=== PATIENT | male | born 1950 | race African-American/Black ===

== ENCOUNTER 2018-08-15 19:09 | Inpatient (IN) | payer MEDICARE, OTHER ==
[2018-08-15 19:34] VITALS: BMI 32.5
--- NOTE | 2018-08-15 19:45 | PDOC ---
History of Present Illness - General Chief Complaint: Syncope/Near Syncope Stated Complaint: SICK Time Seen by Provider: 08/15/18 19:21 History Source: Patient Exam Limitations: Clinical Condition, Intoxication - History of Present Illness Initial Comments: 08/15/18 19:39 Patient is a 68 year old male with a PMHx of HTN, CAD on Aspirin, s/p defibrillator, Chronic Hepatits C, ?A.Fib and poor historian who was BIBEMS after being found on the floor. According to EMS, they found him on the sidewalk passed out with a bag full of unopened beer cans. When they arrived, patient was responsive immediately but unable to recall what happened. Upon my evaluation, patient was agitated and unwilling to answer questions. However, patient does report "passing out" but unable to recall what happened prior and unsure if he fell on his head. Patient currently denies any dizziness, chest pain, palpitation, shortness of breath, fever, chills, nausea, vomiting, abdominal pain, dysuria, frequency, headaches. PMHx: HTN CAD on Aspirin S/P defibrillator Chronic Hepatits C ?A.Fib PSHx: Defibrillator Social Hx: Denies drug use Denies smoking Drinks weekly Allergies: Denies 08/15/18 20:09 Past History - Past Medical History Allergies/Adverse Reactions: Allergies Allergy/AdvReac Type Severity Reaction Status Date / Time No Known Allergies Allergy Verified 08/15/18 19:33 Home Medications: Ambulatory Orders Unobtainable 08/15/18 - Suicide/Smoking/Psychosocial Hx Smoking History: Current some day smoker Have you smoked in the past 12 months: Yes Information on smoking cessation initiated: No Hx Alcohol Use: Yes Drug/Substance Use Hx: No Review of Systems - Review of Systems Constitutional: No: Chills, Diaphoresis, Fever HEENTM: No: Blurred Vision, Double Vision, Nose Congestion, Tinnitus, Nose Bleeding, Throat Pain, Difficulty Swallowing Respiratory: No: Cough, Orthopnea, Shortness of Breath, SOB with Exertion, SOB at Rest, Stridor, Wheezing, Productive cough, Hemoptysis Cardiac (ROS): Yes: Syncope. No: Chest Pain, Edema, Lightheadedness, Palpitations, Chest Tightness ABD/GI: No: Abdominal Distended, Constipated, Diarrhea, Nausea, Vomiting : No: Burning, Dysuria, Frequency, Hematuria Musculoskeletal: No: Back Pain, Joint Pain, Joint Swelling, Muscle Pain, Neck Pain Integumentary: No: Bruising, Erythema, Flushing Neurological: No: Headache, Numbness, Paresthesia, Seizure, Tingling, Tremors, Weakness, Unsteady Gait, Dizziness *Physical Exam - Vital Signs Last Vital Signs Temp Pulse Resp BP Pulse Ox 98.3 F 87 18 129/97 95 08/15/18 19:29 08/15/18 19:29 08/15/18 19:29 08/15/18 19:29 08/15/18 19:29 - Physical Exam General Appearance: Yes: Disheveled HEENT: positive: STEPHIE, Normal ENT Inspection, Normal Voice, Other ((+)2x2cm right forehead bump with no bruising or bleeding, (-) [place] eyes, (-) acuña's sign, (-) hemotympanum ). negative: Pharyngeal Erythema, Tonsillar Exudate, Tonsillar Erythema, Nasal Congestion, Sinus Tenderness Neck: positive: Other (Normal range of motion with no bruising. ) Respiratory/Chest: positive: Lungs Clear, Normal Breath Sounds. negative: Chest Tender, Respiratory Distress, Accessory Muscle Use, Crackles, Rhonchi, Wheezing, Hyperresonant, Dullness Cardiovascular: positive: Regular Rate, Edema (LE 1+ B/L), Irregularly Irregular Vascular Pulses: Dorsalis-Pedis (R): 2+, Doralis-Pedis (L): 2+ Gastrointestinal/Abdominal: positive: Other (Soft, nontender, nondistended, normoactive bowel sounds. (+) Umbilical hernia ) Lymphatic: negative: Adenopathy, Tenderness Musculoskeletal: positive: Normal Inspection. negative: CVA Tenderness, CVA Tenderness (R), CVA Tenderness (L), Decreased Range of Motion Extremity: positive: Normal Range of Motion, Pelvis Stable, Swelling (1+ pitting of LE b/l ), Other (left forearm fasciculations ). negative: Calf Tenderness, Erythema Integumentary: positive: Normal Color. 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, Alert, Motor Strength 5/5, Responsive, Other (NIHSS 2) Moderate Sedation - Procedure Monitoring Vital Signs: Procedure Monitoring Vital Signs Temperature 98.3 F 08/15/18 19:29 Pulse Rate 87 08/15/18 19:29 Respiratory Rate 18 08/15/18 19:29 Blood Pressure 129/97 08/15/18 19:29 O2 Sat by Pulse Oximetry (%) 95 08/15/18 19:29 Heart Score/ECG Review - History History: Highly suspicious - Electrocardiogram EKG: Normal - Age Age: >/= 65 - Risk Factors Risk Factors Heart Score: Yes Hx Hypertension Based on the list above the patient has:: >/=3 risk factors or Hx atherosclerotic disease - Troponin Troponin: >/=3x normal limit - Score Heart Score - Total: 8 - ECG Intrepretation Rhythm: Irregularly Irregular - ST and T Early Repolarization: No Non Specific ST-T Wave changes: No Prolonged Q-T Interval: Yes ED Treatment Course - LABORATORY CBC & Chemistry Diagram: 08/15/18 21:05 08/15/18 21:05 - RADIOLOGY Radiology Studies Ordered: Category Date Time Status HEAD CT WITHOUT CONTRAST [CT] Stat CT Scan 08/15/18 19:35 Ordered Medical Decision Making - Medical Decision Making 08/15/18 19:59 Patient is a 68 year old male who was found on the floor by EMS but was immediately responsive once EMS approached patient. He was found to have a bag unfilled beer cans and patient reports drinking this evening. Patient unable to recall what happened before the fall. Patient has significant history of CAD and will need to rule out etiology of fall which includes, but not limited to, cardiac etiology, neurological etiology , infectious etiology. -Head CT, CXR, and EKG ordered -CBC, CMP, Mg, phos, TSH ordered -U/A ordered -Alcohol levels ordered 08/15/18 21:46 -HEAD CT with no evidence of acute intracranial pathology, possible small chronic left parietal cortical infarct, moderate periventricular and subcortical chronic microvascular ischemic changes, -Patient is more alert now and is resting comfortably. Tolerated dinner -CBC revealed anemia with Hgb of 9.1 -CMP pending -CXR pending 08/15/18 22:13 -Patients BMP showed elevated BUN/Creatinine and troponins 1.50. Differential diagnosis may include PR vs elevated troponins secondary to Renal dysfunction ( demand ischemia) -Will give ASA loading dose -IV NS cancelled due to CXR revealing some cephalization -Will likely require admission -Will need to call Cardiology to determine if patient should be started on Heparin -Call made out 08/15/18 22:47 -Spoke to cardiology and patient likely has demand ischemia due to fall and alcohol intoxication with renal dysfunction. Loading dose ASA recommended. Patient will need to be placed on statin, BB, BALDO. Not a good candidate for AC according to filteration operator due to fall and possible alcoholism -Will need to admit for cardiac monitoring, repeat EKG and Trop to rule out ACS. Will likely need ICD interrogation. 08/15/18 23:26 -Patient accepted to [facility] *DC/Admit/Observation/Transfer Diagnosis at time of Disposition: Syncope Qualifiers: Syncope type: unspecified Qualified Code(s): R55 - Syncope and collapse - Discharge Dispostion Decision to Admit order: Yes - Referrals - Patient Instructions - Post Discharge Activity
--- NOTE | 2018-08-15 20:18 | PDOC ---
Attending Attestation - HPI HPI: 08/15/18 20:28 The patient is a 68 year old male, with a significant PMH of hypertension, coronary artery disease, chronic hepatitis C, atrial fibrillation, who presents to the emergency department via EMS for evaluation s/p being found on the floor/ sidewalk. EMS reports the patient was found on the sidewalk passed out with a full bag of unopened beer cans. They state the patient was responsive when they arrived but unable to explain why he was on the floor. The patient reports passing out but is unable to provide additional information. The patient denies chest pain, shortness of breath, headache and dizziness. Denies fever, chills, nausea, vomit, diarrhea and constipation. Denies dysuria, frequency, urgency and hematuria. Allergies: NKA Documentation prepared by Madhu Barkley, acting as biomedical engineering professor for Tyree Adam MD. - Physicial Exam PE: 08/15/18 20:29 CONSTITUTIONAL: (+) Disheveled. Awake and alert. HEAD: (+) 2x2 cm right forehead bump with no bruising or bleeding. NECK: Supple; non-tender; no cervical lymphadenopathy CARD: (+) Irregular irregular rhythm. no murmurs, rubs, or gallops RESP: Normal chest excursion with respiration; breath sounds clear and equal bilaterally; no wheezes, rhonchi, or rales ABD: (+) Umbilical hernia. Soft, non-distended; non-tender; no palpable organomegaly. EXT: (+) Bilateral 1+ pitting edema lower extremities. Normal ROM in all four extremities; non-tender to palpation; distal pulses intact SKIN: Warm, dry, no rash NEURO: No focal neurological deficiencies. <Madhu Barkley - Last Filed: 08/15/18 20:36> - Resident Resident Name: Belkis Buitrago - ED Attending Attestation I have performed the following: I have examined & evaluated the patient, The case was reviewed & discussed with the resident, I agree w/resident's findings & plan, Exceptions are as noted - Medical Decision Making 08/15/18 22:32 68-year-old male with history of alcohol abuse, htn, defibrilator, hep c, will admit. Presents to the ER after being found unresponsive. In the ER, patient is awake and alert, hemodynamically stable. EKG shows new onset atrial fibrillation without evidence of acute ischemia. Chest x-ray reveals cardiomegaly and possible left pleural effusion. CT of head shows nose of acute intracranial pathology. CBC reveals iron deficiency anemia. CMP reveals elevated BUN/creatinine as well as elevated troponin with a negative CPK. Differential diagnoses includes acute VT versus elevated troponins due to renal dysfunction versus cardiac dysrhythmia with elevated cardiac enzymesvs demand ischmia. We'll administer aspirin given the negative head CT. Will discuss with cardiology. will admit to telemertry <Tyree Adam - Last Filed: 08/15/18 22:57>
[2018-08-15 21:19] LABS: BASO % 1.2 % (0-2.0); EOS % 2.1 % (0-4.5); HEMATOCRIT 28.8 % (35.4-49); HEMOGLOBIN 9.1 GM/dL (11.7-16.9); LYMPH % 15.8 % (8-40); MCH 27.8 pg (25.7-33.7); MCHC 31.7 g/dl (32.0-35.9); MEAN CELL VOLUME 87.7 fl (80-96); MEAN PLT VOLUME 7.8 fl (7.5-11.1); MONO % 10.2 % (3.8-10.2); NEUT % 70.7 % (42.8-82.8); PLATELET COUNT 177 K/MM3 (134-434); RBC 3.28 M/mm3 (4.00-5.60); RDW 19.5 % (11.9-15.9); WHITE BLOOD COUNT 4.7 K/mm3 (4.0-10.0)
[2018-08-15 21:32] LABS: INR 1.12 (0.83-1.09); PROTHROMBIN TIME (PATIENT) 13.2 SEC (9.7-13.0)
[2018-08-15 22:06] LABS: ALBUMIN 3.9 g/dl (3.4-5.0); ALK PHOS 72 U/L (45-117); ANION GAP 10 MMOL/L (8-16); BILIRUBIN,TOTAL 0.4 mg/dL (0.2-1); BLOOD UREA NITROGEN 38 mg/dL (7-18); CALCIUM 8.9 mg/dL (8.5-10.1); CHLORIDE 111 mmol/L (98-107); CO2 19 mmol/L (21-32); CREATININE 1.6 mg/dL (0.55-1.3); GLUCOSE,RANDOM 72 mg/dL (74-106); MAGNESIUM 1.8 mg/dL (1.8-2.4); PHOSPHOROUS 3.8 mg/dL (2.5-4.9); POTASSIUM 4.2 mmol/L (3.5-5.1); SGOT/AST 40 U/L (15-37); SGPT/ALT 19 U/L (13-61); SODIUM 140 mmol/L (136-145); TOT PROT 8.7 g/dl (6.4-8.2)
[2018-08-15] MEDS ORDERED: SODIUM CHLORIDE 1,000 ML IV STA (22:09)
[2018-08-15] MEDS ORDERED: ASPIRIN 325 MG TABLET PO ONE (22:20)
[2018-08-15] MEDS ORDERED: ASPIRIN 81 MG CHEWABLE TABLETS ONE (23:30)
[2018-08-16] MEDS ORDERED: ATORVASTATIN CA 40 MG TABLET (FP) PO ONE (01:00)
[2018-08-16] MEDS ORDERED: FOLIC ACID INJECTION - 1 MG, THIAMINE HCL 100 MG, MULTIVIT INJECTION ADULT 10 ML in SOD... IVPB ONE (01:02)
[2018-08-16] MEDS ORDERED: chlordiazePOXIDE HCL 25 MG CAPSULE PO PRN (01:05)
--- NOTE | 2018-08-16 01:15 | HP ---
CHIEF COMPLAINT: syncope PCP: Dr. Leon Francisco HISTORY OF PRESENT ILLNESS: 68M w/ pmhx of HTN, CAD s/p defibrillator, chronic Hep C, ? A.fib, DM was BIBEMS due to a syncopal episode outside on the street. Pt states he was walking around [place] with no particular destination, during this time consumed 6 cans of beer when he suddenly fell. He does not recall the syncopal event, nor hitting his head during the fall. He states he does not usually experience syncopal episodes. He does, however, report b/l lower leg weakness that is exacerbated when is he intoxicated with alcohol. He states this weakness started 2-3 months ago. Pt says he does follow up with his PCP and foreman or supervisor and operator; last saw both physicians about 3-4 months ago. During those office visits, he reports that he did not have the b/l leg weakness then. Additionally, he admits to b/l LE decrease in sensation/numbness distal to his knee. He does not report any pain. Denies pearson/d, n/v, cp, sob, abd pain, urinary/ bowel symptoms, blood in urine/stool, c/d. He does admit to having a good appetite. Denies slurred speech. ER course was notable for: (1) BUN/Cr 38/1.6; glu 72, trop 1.5, EKG showed A. fib, HR 85 bpm (2) Head CT neg for acute IC pathology, possible small chronic L parietal cortical infarct; mod. periventricular and subcortical chronic microvascular ischemic changes. (3) Aspirin 325 mg PO (4) Cardio consulted regarding elevated trops, recommended starting BALDO, BB, statin; but deferred AC at this time due to pt high risk Recent Travel: Denies PAST MEDICAL HISTORY: HTN CAD s/p defibrillator chronic Hep C A. fib DM PAST SURGICAL HISTORY: defibrillator placement ([facility], 5 years ago) Social History: Smoking: Admits to smoking 1/2 PPD x10 years Alcohol: Admits to drinking ~6 cans of beer every other day Drugs: Denies Family History: Denies Allergies No Known Allergies Allergy (Verified 08/15/18 19:33) HOME MEDICATIONS: Home Medications Medication Instructions Recorded Unobtainable 08/15/18 REVIEW OF SYSTEMS As per HPI PHYSICAL EXAMINATION Vital Signs - 24 hr 08/15/18 19:29 Temperature 98.3 F Pulse Rate 87 Respiratory 18 Rate Blood Pressure 129/97 O2 Sat by Pulse 95 Oximetry (%) GENERAL: Awake and alert. NAD. Intoxicated. HEENT: AT/NC. EOMI. STEPHIE. Dry mucus membranes. 2x2 cm mass on upper right forehead, nontender, nondiscolored. NECK: Normal range of motion, supple without lymphadenopathy, JVD, or masses. LUNGS: CTA B/L. No wheezes noted. HEART: Irregularly irregular. No murmurs noted. ABDOMEN: Protruberant. Soft, NT/ND. No bruits/masses. +BS in all 4Qs. MUSCULOSKELETAL: UPPER EXTREMITIES: 2+ pulses, warm, well-perfused. No cyanosis. No clubbing. No peripheral edema. LOWER EXTREMITIES: 2+ pulses, warm, well-perfused. No calf tenderness. No peripheral edema. NEUROLOGICAL: Cranial nerves II-XII intact. Slurred speech. PSYCHIATRIC: Cooperative. Good eye contact. Appropriate mood and affect. SKIN: Warm, dry, normal turgor, no rashes or lesions noted, normal capillary refill. Laboratory Results - last 24 hr 08/15/18 08/15/18 08/15/18 21:05 21:05 21:05 WBC 4.7 RBC 3.28 L Hgb 9.1 L Hct 28.8 L MCV 87.7 MCH 27.8 MCHC 31.7 L RDW 19.5 H Plt Count 177 MPV 7.8 Absolute Neuts (auto) 3.3 Neutrophils % 70.7 Lymphocytes % 15.8 Monocytes % 10.2 Eosinophils % 2.1 Basophils % 1.2 Nucleated RBC % 0 PT with INR 13.20 H INR 1.12 H Sodium 140 Potassium 4.2 Chloride 111 H Carbon Dioxide 19 L Anion Gap 10 BUN 38 H Creatinine 1.6 H Creat Clearance w eGFR 42.95 Random Glucose 72 L Calcium 8.9 Phosphorus 3.8 Magnesium 1.8 Total Bilirubin 0.4 AST 40 H ALT 19 Alkaline Phosphatase 72 Creatine Kinase 142 Troponin I 1.50 H* Total Protein 8.7 H Albumin 3.9 Alcohol, Quantitative 178.4 H CONSULT: Cardio- Dr. German IMAGING: * Head CT: neg for acute IC pathology. Possible small chronic L parietal cortical infarct. Moderate periventricular and subcortical microvascular ischemic changes. ASSESSMENT/PLAN: 68M w/ pmhx of HTN, CAD s/p defibrillator, chronic Hep C, ? A.fib, DM was BIBEMS due to a syncopal episode likely 2/2 alcohol intoxication. #Syncope; likely 2/2 alcohol intoxication vs. cardiac etiology vs. neuro etiology -Unlikely neuro given head CT findings showing chronic changes, no acute IC pathology -EKG showed A. fib; syncopal episode may be due to cardiac etiology -Echo ordered -Carotid doppler ordered -Fall precautions #Elevated troponins; likely 2/2 demand ischemia in setting of alcoholic intoxication, acute renal injury -ED resident spoke to cardio. Per cardio rec, defer AC for now as pt has a fall risk -cardio consult ordered; admit to tele to r/o ACS -Aspirin 81 mg PO QD -Lipitor 40 mg PO QD -Metoprolol 25 mg PO BID -Lisinopril 20 mg PO QD -repeat trops #CKD -BUN/Cr 38/1.6; continue to trend BMP #DM -BGMs ACHS -ISS ACHS -hold home med Metformin #Alcohol Intoxication -Librium protocol -Banana bag -Alcohol cessation counseling #Prophylaxis DVT- Heparin 5000U SQ TID #FEN -banana bag ordered -recheck lytes in AM -diabetic/sodium-controlled diet dispo -admit to tele obs -full code -needs meds reconciled Visit type - Emergency Visit Emergency Visit: Yes ED Registration Date: 08/15/18 Care time: The patient presented to the Emergency Department on the above date and was hospitalized for further evaluation of their emergent condition. - New Patient This patient is new to me today: Yes Date on this admission: 08/16/18 - Critical Care Critical Care patient: No
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
[2018-08-16] MEDS ORDERED: ATORVASTATIN CA 40 MG TABLET (FP) ONE (01:24)
[2018-08-16] MEDS ORDERED: METOPROLOL TARTRATE 25 MG TABLET (FP) ONE ×2 (01:25→23:54)
[2018-08-16] MEDS: METOPROLOL TARTRATE 25 MG TABLET (FP) PO SCH ×3 (01:35→23:58)
[2018-08-16] MEDS ORDERED: chlordiazePOXIDE HCL 25 MG CAPSULE ONE ×3 (07:19→16:26)
[2018-08-16] MEDS: chlordiazePOXIDE HCL 25 MG CAPSULE PO SCH ×3 (07:20→16:37)
[2018-08-16] MEDS ORDERED: ASPIRIN 81 MG CHEWABLE TABLETS PO SCH (10:00)
[2018-08-16] MEDS ORDERED: LISINOPRIL 20 MG TABLET (FP) PO SCH (10:00)
--- NOTE | 2018-08-16 10:35 | HOSP ---
Subjective - Review of Symptoms Events since last encounter: Patient is feeling better ,but wants to go home. Vital Signs Temperature 99.4 F 08/16/18 07:22 Pulse Rate 83 08/16/18 08:33 Respiratory Rate 16 08/16/18 08:33 Blood Pressure 151/95 08/16/18 08:33 O2 Sat by Pulse Oximetry (%) 97 08/16/18 08:56 GENERAL: Awake and alert. NAD. calm. HEENT: AT/NC. EOMI. STEPHIE. Dry mucus membranes. NECK: Normal range of motion, supple without lymphadenopathy, JVD, or masses. LUNGS: CTA B/L. No wheezes noted. HEART: Irregularly irregular. No murmurs noted. ABDOMEN: Soft, NT/ND. No bruits/masses. EXTREMITIES: 2+ pulses, warm, well-perfused. No cyanosis. No clubbing. No peripheral edema. NEUROLOGICAL: Cranial nerves II-XII intact. PSYCHIATRIC: Cooperative. Appropriate mood and affect. SKIN: Warm, dry, normal turgor, no rashes or lesions noted, normal capillary refill. CBCD WBC 4.7 K/mm3 (4.0-10.0) 08/15/18 21:05 RBC 3.28 M/mm3 (4.00-5.60) L 08/15/18 21:05 Hgb 9.1 GM/dL (11.7-16.9) L 08/15/18 21:05 Hct 28.8 % (35.4-49) L 08/15/18 21:05 MCV 87.7 fl (80-96) 08/15/18 21:05 MCHC 31.7 g/dl (32.0-35.9) L 08/15/18 21:05 RDW 19.5 % (11.9-15.9) H 08/15/18 21:05 Plt Count 177 K/MM3 (134-434) 08/15/18 21:05 MPV 7.8 fl (7.5-11.1) 08/15/18 21:05 CMP Sodium 140 mmol/L (136-145) 08/15/18 21:05 Potassium 4.2 mmol/L (3.5-5.1) 08/15/18 21:05 Chloride 111 mmol/L (98-107) H 08/15/18 21:05 Carbon Dioxide 19 mmol/L (21-32) L 08/15/18 21:05 Anion Gap 10 MMOL/L (8-16) 08/15/18 21:05 BUN 38 mg/dL (7-18) H 08/15/18 21:05 Creatinine 1.6 mg/dL (0.55-1.3) H 08/15/18 21:05 Creat Clearance w eGFR 42.95 (>60) 08/15/18 21:05 Random Glucose 72 mg/dL (74-106) L 08/15/18 21:05 Calcium 8.9 mg/dL (8.5-10.1) 08/15/18 21:05 Total Bilirubin 0.4 mg/dL (0.2-1) 08/15/18 21:05 AST 40 U/L (15-37) H 08/15/18 21:05 ALT 19 U/L (13-61) 08/15/18 21:05 Alkaline Phosphatase 72 U/L (45-117) 08/15/18 21:05 Total Protein 8.7 g/dl (6.4-8.2) H 08/15/18 21:05 Albumin 3.9 g/dl (3.4-5.0) 08/15/18 21:05 CARDIAC ENZYMES Creatine Kinase 142 IU/L (26-308) 08/15/18 21:05 Troponin I 1.49 ng/ml (0.00-0.05) H* 08/16/18 08:40 Current Medications Generic Name Dose Route Start Last Admin Trade Name Freq PRN Reason Stop Dose Admin Aspirin 81 mg 08/16/18 10:00 08/16/18 09:49 Asa - PO 81 mg DAILY ALEAH Administration Chlordiazepoxide HCl 50 mg 08/16/18 05:00 08/16/18 07:20 Librium - PO 08/16/18 23:01 50 mg [id number] ALEAH Administration Chlordiazepoxide HCl 25 mg 08/17/18 05:00 Librium - PO 08/17/18 23:01 [id number]-[id number] ALEAH Chlordiazepoxide HCl 15 mg 08/18/18 05:00 Librium - PO 08/18/18 23:01 [id number] ALEAH Chlordiazepoxide HCl 25 mg 08/16/18 01:05 Librium - PO 08/19/18 01:04 Q4H PRN WITHDRAWAL(CONT SUBST) Chlordiazepoxide HCl 10 mg 08/19/18 05:00 Librium - PO 08/19/18 23:01 [id number] ALEAH Heparin Sodium (Porcine) 5,000 unit 08/16/18 14:00 Heparin - SQ TID [facility] Insulin Aspart 1 vial 08/16/18 11:00 Novolog Vial Sliding Scale - SQ ACHS [facility] Protocol Lisinopril 20 mg 08/16/18 10:00 08/16/18 09:49 Prinivil PO 20 mg DAILY ALEAH Administration Metoprolol Tartrate 25 mg 08/16/18 01:15 08/16/18 09:50 Lopressor - PO 25 mg BID ALEAH Administration Home Medications Medication Instructions Recorded Unobtainable 08/15/[address]: neg for acute IC pathology. Possible small chronic L parietal cortical infarct. Moderate periventricular and subcortical microvascular ischemic changes. ASSESSMENT/PLAN: Patient is a 68yo male with pmhx of HTN, CAD s/p defibrillator, chronic Hep C, A.fib, DM was admitted for a syncopal episode most likely due to alcohol intoxication. #Syncope: most likely due to alcohol #Alcohol Intoxication: on Librium protocol, monitor for withdrawel #Elevated troponins; likely demand ischemia in setting of alcoholic intoxication. Cardio. on the case appreciated. #acute renal injury over CKD: IVF #T2DM: ss with coverage. # DVT Px: Heparin 5000U SQ TID follow head CT for am. Laboratory Tests 08/15/18 08/16/18 08/16/18 21:05 08:40 13:20 Troponin I 1.50 H* 1.49 H* 1.40 H* Physical Examination Vital Signs: Vital Signs Temperature 99.4 F 08/16/18 07:22 Pulse Rate 83 08/16/18 08:33 Respiratory Rate 16 08/16/18 08:33 Blood Pressure 151/95 08/16/18 08:33 O2 Sat by Pulse Oximetry (%) 97 08/16/18 08:56 Labs: CBC, BMP 08/15/18 21:05 08/15/18 21:05
[2018-08-16 10:49] LABS: URINE APPEARANCE CLEAR; URINE BILIRUBIN NEGATIVE (<2.0 mg/dL); URINE COLOR YELLOW; URINE GLUCOSE (UA) NEGATIVE (NEGATIVE); URINE KETONE NEGATIVE (NEGATIVE); URINE LEUK ESTERASE NEGATIVE (NEGATIVE); URINE NITRITE NEGATIVE (NEGATIVE); URINE PROTEIN 1+ (NEGATIVE)
[2018-08-16 11:01] LABS: EPI CELLS RARE /HPF (FEW); URINE HYALINE CAST 9 /lpf; URINE MUCUS RARE
[2018-08-16] MEDS: INSULIN SLIDING SCALE (NOVOLOG) 1 VIAL SQ SCH ×3 (11:23→23:59)
--- NOTE | 2018-08-16 13:45 | CON.CARD ---
Consult Consult Specialty:: Cardiomyopathy Referred by:: Hospitalist Medicine Reason for Consultation:: Syncope - History of Present Illness Chief Complaint: Syncope History of Present Illness: cc: syncope PCP: Dr. Leon Francisco HISTORY OF PRESENT ILLNESS: 68M w/ pmhx of HTN, CAD s/p ischemic cardiomyopathy s/p defibrillator, chronic Hep C, ? A.fib, DM was BIBEMS due to a syncopal episode after consuming 6 cans of beer, found to have elevated serum alcohol, now asymptomatic from CV- standpoint and denies chest pain, dyspnea, near or true syncope, palpitations, orthopnea, PND or LE edema, ICD d/c, eating dinner, he sees supervisor dials at Dr. Leon Francisco office. Recent Travel: Denies PAST MEDICAL HISTORY: HTN CAD s/p defibrillator chronic Hep C A. fib DM PAST SURGICAL HISTORY: defibrillator placement ([facility], 5 years ago) Social History: Smoking: Admits to smoking 1/2 PPD x10 years Alcohol: Admits to drinking ~6 cans of beer every other day Drugs: Denies Family History: Denies Allergies No Known Allergies Allergy (Verified 08/15/18 19:33) - Alcohol/Substance Use Hx Alcohol Use: Yes - Smoking History Smoking history: Current some day smoker Have you smoked in the past 12 months: Yes Home Medications - Allergies Allergies/Adverse Reactions: Allergies Allergy/AdvReac Type Severity Reaction Status Date / Time No Known Allergies Allergy Verified 08/15/18 19:33 - Home Medications Home Medications: Ambulatory Orders Unobtainable 08/15/18 Review of Systems - Review of Systems Neurological: reports: Syncope Vital Signs: Vital Signs Temperature 98.4 F 08/16/18 11:24 Pulse Rate 85 08/16/18 11:24 Respiratory Rate 18 08/16/18 11:24 Blood Pressure 122/86 08/16/18 11:24 O2 Sat by Pulse Oximetry (%) 97 08/16/18 11:24 Constitutional: Yes: No Distress, Calm Neck: Yes: Supple Respiratory: Yes: Regular, CTA Bilaterally Gastrointestinal: Yes: Normal Bowel Sounds, Soft Cardiovascular: Yes: Pulse Irregular JVD: No Carotid Bruit: No Heart Sounds: Yes: S1, S2 Murmur: Yes: Systolic Murmur, Grade 1 Edema: No - Other Data Labs, Other Data: CBC, BMP 08/15/18 21:05 08/15/18 21:05 INR, PTT INR 1.12 (0.83-1.09) H 08/15/18 21:05 Troponin, BNP 08/15/18 08/16/18 21:05 08:40 Troponin I 1.50 H* 1.49 H* Troponin, BNP 08/15/18 08/16/18 21:05 08:40 Troponin I 1.50 H* 1.49 H* Afib @ 84 PVC Ejection Fraction %: LVEF < 40 % Imaging - Results Chest X-ray: Report Reviewed (NAD) Ultrasound: Report Reviewed (Carotid US-Neg stenosis) Problem List - Problems (1) Cardiomyopathy Code(s): I42.9 - CARDIOMYOPATHY, UNSPECIFIED Qualifiers: Cardiomyopathy type: unspecified Qualified Code(s): I42.9 - Cardiomyopathy , unspecified (2) ICD (implantable cardioverter-defibrillator) in place Code(s): Z95.810 - PRESENCE OF AUTOMATIC (IMPLANTABLE) CARDIAC DEFIBRILLATOR (3) Demand ischemia Code(s): I24.8 - OTHER FORMS OF ACUTE ISCHEMIC HEART DISEASE (4) Alcohol intoxication Code(s): F10.929 - ALCOHOL USE, UNSPECIFIED WITH INTOXICATION, UNSPECIFIED Qualifiers: Complication of substance-induced condition: uncomplicated Qualified Code(s ): F10.920 - Alcohol use, unspecified with intoxication, uncomplicated (5) Chronic kidney disease Code(s): N18.9 - CHRONIC KIDNEY DISEASE, UNSPECIFIED Qualifiers: Chronic kidney disease stage: stage 2 (mild) Qualified Code(s): N18.2 - Chronic kidney disease, stage 2 (mild) (6) Syncope Code(s): R55 - SYNCOPE AND COLLAPSE Qualifiers: Syncope type: unspecified Qualified Code(s): R55 - Syncope and collapse Assessment/Plan Head CT neg for acute IC pathology, possible small chronic L parietal cortical infarct; mod. periventricular and subcortical chronic microvascular ischemic changes. 1. Syncope in context of alcohol intoxication 2. CAD demand ischemia 3. Persistent afib not a/c candidate due to active alcohol, outside supervisor dials to reassess 4. Type 2 DM 5. CKD 6. Anemia P:1. Resume patient's usual cardiomyopathy meds likely including BALDO-I, BB, statin, ASA; a/c deferred due to active alcohol 2. Trops are downtrending 3. Librium detox, vitamins 4. Patient has no alarms on telemetry over last 24 hours, december d/c telemetry monitoring 5. Thank you for consultative opportunity, f/u with outside supervisor dials at Dr. Leon Francisco office
[2018-08-16] MEDS: HEPARIN NA (PORCINE) 5,000 UNITS/ML 1ML VIAL SQ SCH ×2 (14:37→23:58)
--- NOTE | 2018-08-16 15:48 | EKG ---
Test Reason : Blood Pressure : / mmHG Vent. Rate : 084 BPM Atrial Rate : 125 BPM P-R Int : 000 ms QRS Dur : 104 ms QT Int : 420 ms P-R-T Axes : 000 013 066 degrees QTc Int : 496 ms ATRIAL FIBRILLATION WITH PREMATURE VENTRICULAR OR ABERRANTLY CONDUCTED COMPLEXES SEPTAL INFARCT , AGE UNDETERMINED ABNORMAL ECG NO PREVIOUS ECGS AVAILABLE Confirmed by CHICA RUELAS MD ([id number]) on 08/16/2018 3:47:28 PM Referred By: Confirmed By:CHICA RUELAS MD
[2018-08-16] MEDS ORDERED: HEPARIN NA (PORCINE) 5,000 UNITS/ML 1ML VIAL ONE (23:54)
[2018-08-17] MEDS ORDERED: chlordiazePOXIDE HCL 25 MG CAPSULE ONE (00:06)
[2018-08-17] MEDS: chlordiazePOXIDE HCL 25 MG CAPSULE PO SCH ×4 (00:11→22:11)
[2018-08-17] MEDS ORDERED: chlordiazePOXIDE HCL 25 MG CAPSULE PO SCH (05:00)
[2018-08-17] MEDS: HEPARIN NA (PORCINE) 5,000 UNITS/ML 1ML VIAL SQ SCH ×3 (05:14→22:11)
[2018-08-17] MEDS: INSULIN SLIDING SCALE (NOVOLOG) 1 VIAL SQ SCH ×4 (06:07→22:11)
[2018-08-17] MEDS ORDERED: chlordiazePOXIDE HCL 25 MG CAPSULE PO PRN (07:43)
--- NOTE | 2018-08-17 07:58 | PN ---
Physical Exam: SUBJECTIVE: Patient seen and examined. Drowsy but arousable Pt came is as a syncope likely due to alcohol intoxication ruled out for cardiac or neuro causes of syncope now on librium protocol. OBJECTIVE: Vital Signs Period Temp Pulse Resp BP Sys/Ott Pulse Ox Last 24 Hr 97.8 F-98.4 F 75-85 16-18 120-156/75-95 96-98 Vital Signs Temperature 97.5 F L 08/17/18 09:51 Pulse Rate 98 H 08/17/18 09:51 Respiratory Rate 20 08/17/18 09:51 Blood Pressure 146/106 H 08/17/18 09:51 O2 Sat by Pulse Oximetry (%) 98 08/17/18 09:52 GENERAL: The patient is drowsy but arousable, and oriented, in no acute distress. HEAD: Normal with no signs of trauma. EYES: PERRL, extraocular movements intact, sclera anicteric, conjunctiva clear. ENT: moist mucous membranes. NECK: supple. LUNGS: Breath sounds equal, clear to auscultation bilaterally HEART: Regular rate and rhythm, S1, S2 without murmur ABDOMEN: Soft, nontender, obese, normoactive bowel sounds EXTREMITIES: 2+ pulses, warm, well-perfused, no edema. NEUROLOGICAL: Mild tremors, Symetric face and tongue, intact sensations, able to move all extremities, Normal speech, gait not observed. CBC, BMP 08/17/18 06:30 08/17/18 06:30 Laboratory Results - last 24 hr 08/16/18 08/16/18 08/16/18 08:15 08:40 11:08 POC Glucometer 134.08496 Creatine Kinase Troponin I 1.49 H* Urine Color Yellow Urine Appearance Clear Urine pH 5.0 Ur Specific [place] 1.017 Urine Protein 1+ H Urine Glucose (UA) Negative Urine Ketones Negative Urine Blood Negative Urine Nitrite Negative Urine Bilirubin Negative Urine Urobilinogen 2.0 Ur Leukocyte Esterase Negative Urine WBC (Auto) 2 Urine RBC (Auto) 1 Ur Epithelial Cells Rare Hyaline Casts 9 Urine Mucus Rare 08/16/18 08/16/18 08/16/18 13:20 16:29 23:49 POC Glucometer 123.59774 128.59065 Creatine Kinase 137 Troponin I 1.40 H* Urine Color Urine Appearance Urine pH Ur Specific [place] Urine Protein Urine Glucose (UA) Urine Ketones Urine Blood Urine Nitrite Urine Bilirubin Urine Urobilinogen Ur Leukocyte Esterase Urine WBC (Auto) Urine RBC (Auto) Ur Epithelial Cells Hyaline Casts Urine Mucus 08/17/18 05:13 POC Glucometer 122 Creatine Kinase Troponin I Urine Color Urine Appearance Urine pH Ur Specific [place] Urine Protein Urine Glucose (UA) Urine Ketones Urine Blood Urine Nitrite Urine Bilirubin Urine Urobilinogen Ur Leukocyte Esterase Urine WBC (Auto) Urine RBC (Auto) Ur Epithelial Cells Hyaline Casts Urine Mucus Active Medications Generic Name Dose Route Start Last Admin Trade Name Freq PRN Reason Stop Dose Admin Aspirin 81 mg 08/17/18 10:00 Asa - PO DAILY [facility] Chlordiazepoxide HCl 25 mg 08/17/18 07:43 Librium - PO 08/19/18 01:04 Q4H PRN WITHDRAWAL(CONT SUBST) Chlordiazepoxide HCl 25 mg 08/17/18 11:00 Librium - PO 08/17/18 23:01 [id number] [facility] Chlordiazepoxide HCl 15 mg 08/18/18 05:00 Librium - PO 08/18/18 23:01 [id number] [facility] Chlordiazepoxide HCl 10 mg 08/19/18 05:00 Librium - PO 08/19/18 23:01 [id number] [facility] Heparin Sodium (Porcine) 5,000 unit 08/17/18 14:00 Heparin - SQ TID [facility] Insulin Aspart 1 vial 08/17/18 11:00 Novolog Vial Sliding Scale - SQ ACHS [facility] Protocol Lisinopril 20 mg 08/17/18 10:00 Prinivil PO DAILY [facility] Metoprolol Tartrate 25 mg 08/17/18 10:00 Lopressor - PO BID [facility] Active Medications Aspirin (Asa -) 81 mg PO DAILY [facility] Last Admin: 08/17/18 09:49 Dose: 81 mg Chlordiazepoxide HCl (Librium -) 25 mg PO Q4H PRN PRN Reason: WITHDRAWAL(CONT SUBST) Stop: 08/19/18 01:04 Chlordiazepoxide HCl (Librium -) 25 mg PO [id number] [facility] Stop: 08/17/18 23:01 Chlordiazepoxide HCl (Librium -) 15 mg PO [id number] [facility] Stop: 08/18/18 23:01 Chlordiazepoxide HCl (Librium -) 10 mg PO [id number] [facility] Stop: 08/19/18 23:01 Folic Acid (Folic Acid -) 1 mg PO DAILY [facility] Heparin Sodium (Porcine) (Heparin -) 5,000 unit SQ TID [facility] Sodium Chloride (1/2 Normal Saline) 1,000 mls @ 42 mls/hr IV ASDIR [facility] Stop: 08/18/18 10:49 Insulin Aspart (Novolog Vial Sliding Scale -) 1 vial SQ [facility]; Protocol Lisinopril (Prinivil) 20 mg PO DAILY [facility] Last Admin: 08/17/18 09:49 Dose: 20 mg Metoprolol Tartrate (Lopressor -) 25 mg PO BID [facility] Last Admin: 08/17/18 09:49 Dose: 25 mg Thiamine HCl (Vitamin B1 -) 100 mg PO DAILY [facility] IMAGING: * Head CT: neg for acute IC pathology. Possible small chronic L parietal cortical infarct. Moderate periventricular and subcortical microvascular ischemic changes. * ASSESSMENT/PLAN: 68M w/ pmhx of HTN, CAD s/p defibrillator, chronic Hep C, A.fib, DM was BIBEMS due to a syncopal episode likely 2/2 alcohol intoxication. #Syncope; likely 2/2 alcohol intoxication - head CT findings showing chronic changes, no acute IC pathology -EKG showed A. fib; pt not on A/C due to frequent falls and ETOH abuse -Echo ordered -Carotid doppler ordered -Fall precautions #Alcohol withdrawal -Librium protocol - Detox consult -thiamine, folic acid #Elevated troponins; likely 2/2 demand ischemia in setting of alcoholic intoxication, acute renal injury -Peaked trops, Per cardio rec, defer AC for now as pt has a fall risk -Transfer off tele -Aspirin 81 mg PO QD -Lipitor 40 mg PO QD -Metoprolol 25 mg PO BID -Lisinopril 20 mg PO QD #Persistent Afib: -Per cardio rec, defer AC for now as pt has a fall risk -Cont metoprolol -f/u with outside metal ceiling hanger at Dr. Leon Francisco office #NAS R/O CKD -BUN/Cr 38/1.6 on presentation -Cr trending down 1.6>>1.5 #T2DM -BGMs ACHS -ISS ACHS -HgbA1c- -hold home med Metformin #Alcohol Intoxication -Librium protocol -Alcohol cessation counseling -Detox consult #Anemia -Normocytic anemia, Elevated RDW, -Cont to monitor -F/u Iron studies #HTN -Cont librium protocol - Cont lisinopril, metoprolol #FEN -Sodium controlled diet -Monitor lytes replete as needed #Dispo For likely transfer to [facility] Visit type - Emergency Visit Emergency Visit: Yes ED Registration Date: 08/16/18 Care time: The patient presented to the Emergency Department on the above date and was hospitalized for further evaluation of their emergent condition. - New Patient This patient is new to me today: Yes Date on this admission: 08/17/18 - Critical Care Critical Care patient: No - Discharge Referral Referred to [facility] Med P.C.: No
--- NOTE | 2018-08-17 08:04 | PN ---
Teaching Attending Note Name of Resident: Bella rGaff ATTENDING PHYSICIAN STATEMENT I saw and evaluated the patient. I reviewed the resident's note and discussed the case with the resident. I agree with the resident's findings and plan as documented. SUBJECTIVE: Patient feels better with no acute distress. would like to go home. OBJECTIVE: Vital Signs Temperature 97.8 F 08/17/18 06:00 Pulse Rate 77 08/17/18 06:00 Respiratory Rate 18 08/17/18 06:00 Blood Pressure 120/79 08/17/18 06:00 O2 Sat by Pulse Oximetry (%) 96 08/17/18 01:30 GENERAL: Awake and alert. NAD. HEENT: AT/NC. EOMI. STEPHIE. Dry mucus membranes. NECK: Normal range of motion, supple without lymphadenopathy, JVD, or masses. LUNGS: CTA B/L. No wheezes noted. HEART: Irregularly irregular. No murmurs noted. ABDOMEN: Soft, NT/ND. No bruits/masses. EXTREMITIES: 2+ pulses, warm, well-perfused. No cyanosis. No clubbing. No peripheral edema. NEUROLOGICAL: Cranial nerves II-XII intact. PSYCHIATRIC: Cooperative. Good eye contact. Appropriate mood and affect. SKIN: Warm, dry, normal turgor, no rashes or lesions noted, normal capillary refill. CBCD WBC 4.7 K/mm3 (4.0-10.0) 08/15/18 21:05 RBC 3.28 M/mm3 (4.00-5.60) L 08/15/18 21:05 Hgb 9.1 GM/dL (11.7-16.9) L 08/15/18 21:05 Hct 28.8 % (35.4-49) L 08/15/18 21:05 MCV 87.7 fl (80-96) 08/15/18 21:05 MCHC 31.7 g/dl (32.0-35.9) L 08/15/18 21:05 RDW 19.5 % (11.9-15.9) H 08/15/18 21:05 Plt Count 177 K/MM3 (134-434) 08/15/18 21:05 MPV 7.8 fl (7.5-11.1) 08/15/18 21:05 CMP Sodium 140 mmol/L (136-145) 12/21/18 21:05 Potassium 4.2 mmol/L (3.5-5.1) 08/15/18 21:05 Chloride 111 mmol/L (98-107) H 08/15/18 21:05 Carbon Dioxide 19 mmol/L (21-32) L 08/15/18 21:05 Anion Gap 10 MMOL/L (8-16) 08/15/18 21:05 BUN 38 mg/dL (7-18) H 08/15/18 21:05 Creatinine 1.6 mg/dL (0.55-1.3) H 08/15/18 21:05 Creat Clearance w eGFR 42.95 (>60) 08/15/18 21:05 Random Glucose 72 mg/dL (74-106) L 08/15/18 21:05 Calcium 8.9 mg/dL (8.5-10.1) 08/15/18 21:05 Total Bilirubin 0.4 mg/dL (0.2-1) 08/15/18 21:05 AST 40 U/L (15-37) H 08/15/18 21:05 ALT 19 U/L (13-61) 08/15/18 21:05 Alkaline Phosphatase 72 U/L (45-117) 08/15/18 21:05 Total Protein 8.7 g/dl (6.4-8.2) H 08/15/18 21:05 Albumin 3.9 g/dl (3.4-5.0) 08/15/18 21:05 CARDIAC ENZYMES Creatine Kinase 137 IU/L (26-308) 08/16/18 13:20 Troponin I 1.40 ng/ml (0.00-0.05) H* 08/16/18 13:20 Current Medications Generic Name Dose Route Start Last Admin Trade Name Freq PRN Reason Stop Dose Admin Aspirin 81 mg 08/17/18 10:00 Asa - PO DAILY ALEAH Chlordiazepoxide HCl 25 mg 08/17/18 07:43 Librium - PO 08/19/18 01:04 Q4H PRN WITHDRAWAL(CONT SUBST) Chlordiazepoxide HCl 25 mg 08/17/18 11:00 Librium - PO 08/17/18 23:01 [id number] ALEAH Chlordiazepoxide HCl 15 mg 08/18/18 05:00 Librium - PO 08/18/18 23:01 [id number] ALEAH Chlordiazepoxide HCl 10 mg 08/19/18 05:00 Librium - PO 08/19/18 23:01 [id number] [facility] Heparin Sodium (Porcine) 5,000 unit 08/17/18 14:00 Heparin - SQ TID ALEAH Insulin Aspart 1 vial 08/17/18 11:00 Novolog Vial Sliding Scale - SQ ACHS [facility] Protocol Lisinopril 20 mg 08/17/18 10:00 Prinivil PO DAILY ALEAH Metoprolol Tartrate 25 mg 08/17/18 10:00 Lopressor - PO BID [facility] Home Medications Medication Instructions Recorded Unobtainable 08/15/[address]: neg for acute IC pathology. Possible small chronic L parietal cortical infarct. Moderate periventricular and subcortical microvascular ischemic changes. repeat head CT is negative for an acute pathology. ASSESSMENT/PLAN: Patient is a 68yo male with pmhx of HTN, CAD s/p defibrillator, chronic Hep C, A.fib, DM was admitted for a syncopal episode most likely due to alcohol intoxication as per patient before the syncopal event had alcohol in his system. #Syncope: due to alcohol intoxication #Alcohol Intoxication: on Librium protocol continue on 25mg q6h x 1 day today, monitor for withdrawel, will; get PT to evalaute the patient for gait and balance. #Elevated troponins; likely demand ischemia in setting of alcoholic intoxication. cardio. on the case. #acute renal injury over CKD: IVF continue #T2DM: ss with coverage. # DVT Px: Heparin 5000U SQ TID
[2018-08-17 08:05] LABS: BASO % 1.2 % (0-2.0); EOS % 4.1 % (0-4.5); HEMATOCRIT 25.9 % (35.4-49); HEMOGLOBIN 8.6 GM/dL (11.7-16.9); LYMPH % 16.9 % (8-40); MCH 28.8 pg (25.7-33.7); MCHC 33.1 g/dl (32.0-35.9); MEAN CELL VOLUME 87.1 fl (80-96); MEAN PLT VOLUME 8.7 fl (7.5-11.1); MONO % 13.1 % (3.8-10.2); NEUT % 64.7 % (42.8-82.8); PLATELET COUNT 146 K/MM3 (134-434); RBC 2.98 M/mm3 (4.00-5.60); RDW 18.4 % (11.9-15.9); WHITE BLOOD COUNT 4.3 K/mm3 (4.0-10.0)
[2018-08-17 08:50] LABS: ALBUMIN 3.2 g/dl (3.4-5.0); ALK PHOS 62 U/L (45-117); ANION GAP 7 MMOL/L (8-16); BILIRUBIN,TOTAL 0.6 mg/dL (0.2-1); BLOOD UREA NITROGEN 38 mg/dL (7-18); CALCIUM 8.7 mg/dL (8.5-10.1); CHLORIDE 114 mmol/L (98-107); CO2 21 mmol/L (21-32); CREATININE 1.5 mg/dL (0.55-1.3); GLUCOSE,RANDOM 105 mg/dL (74-106); POTASSIUM 4.2 mmol/L (3.5-5.1); SGOT/AST 28 U/L (15-37); SGPT/ALT 16 U/L (13-61); SODIUM 141 mmol/L (136-145); TOT PROT 7.4 g/dl (6.4-8.2)
[2018-08-17] MEDS: ASPIRIN 81 MG CHEWABLE TABLETS PO SCH (09:49)
[2018-08-17] MEDS: LISINOPRIL 20 MG TABLET (FP) PO SCH (09:49)
[2018-08-17] MEDS: METOPROLOL TARTRATE 25 MG TABLET (FP) PO SCH ×2 (09:49→22:11)
[2018-08-17] MEDS ORDERED: SODIUM CHLORIDE 0.45% 1,000 ML IV SCH (11:00)
[2018-08-17] MEDS: THIAMINE HCL 100 MG TABLET (FP) PO SCH (11:45)
[2018-08-17] MEDS: FOLIC ACID 1 MG TABLET (FP) PO SCH (11:45)
--- NOTE | 2018-08-17 14:08 | PN ---
Progress Note, Physician History of Present Illness: Resting comfortably, no event on telemetry, denies recurrent near or true syncope. - Current Medication List Current Medications: Active Medications Aspirin (Asa -) 81 mg PO DAILY [facility] Last Admin: 08/17/18 09:49 Dose: 81 mg Chlordiazepoxide HCl (Librium -) 25 mg PO Q4H PRN PRN Reason: WITHDRAWAL(CONT SUBST) Stop: 08/19/18 01:04 Chlordiazepoxide HCl (Librium -) 25 mg PO [id number] [facility] Stop: 08/17/18 23:01 Last Admin: 08/17/18 11:45 Dose: 25 mg Chlordiazepoxide HCl (Librium -) 15 mg PO [id number] [facility] Stop: 08/18/18 23:01 Chlordiazepoxide HCl (Librium -) 10 mg PO [id number] [facility] Stop: 08/19/18 23:01 Folic Acid (Folic Acid -) 1 mg PO DAILY [facility] Last Admin: 08/17/18 11:45 Dose: 1 mg Heparin Sodium (Porcine) (Heparin -) 5,000 unit SQ TID [facility] Sodium Chloride (1/2 Normal Saline) 1,000 mls @ 42 mls/hr IV ASDIR [facility] Stop: 08/18/18 10:49 Last Admin: 08/17/18 11:45 Dose: 42 mls/hr Insulin Aspart (Novolog Vial Sliding Scale -) 1 vial SQ [facility]; Protocol Last Admin: 08/17/18 11:44 Dose: Not Given Lisinopril (Prinivil) 20 mg PO DAILY [facility] Last Admin: 08/17/18 09:49 Dose: 20 mg Metoprolol Tartrate (Lopressor -) 25 mg PO BID [facility] Last Admin: 08/17/18 09:49 Dose: 25 mg Thiamine HCl (Vitamin B1 -) 100 mg PO DAILY [facility] Last Admin: 08/17/18 11:45 Dose: 100 mg - Objective Vital Signs: Vital Signs Temperature 97.5 F L 08/17/18 09:51 Pulse Rate 98 H 08/17/18 09:51 Respiratory Rate 20 08/17/18 09:51 Blood Pressure 146/106 H 08/17/18 09:51 O2 Sat by Pulse Oximetry (%) 98 08/17/18 09:52 Constitutional: Yes: No Distress, Calm Neck: Yes: Supple Cardiovascular: Yes: Pulse Irregular Respiratory: Yes: Regular, CTA Bilaterally Gastrointestinal: Yes: Normal Bowel Sounds, Soft Edema: No Labs: CBC, BMP 08/17/18 06:30 08/17/18 06:30 INR, PTT INR 1.12 (0.83-1.09) H 08/15/18 21:05 - ....Imaging EKG: Report Reviewed (Tele: Rate-controlled afib) Problem List - Problems (1) Cardiomyopathy Code(s): I42.9 - CARDIOMYOPATHY, UNSPECIFIED Qualifiers: Cardiomyopathy type: unspecified Qualified Code(s): I42.9 - Cardiomyopathy , unspecified (2) ICD (implantable cardioverter-defibrillator) in place Code(s): Z95.810 - PRESENCE OF AUTOMATIC (IMPLANTABLE) CARDIAC DEFIBRILLATOR (3) Demand ischemia Code(s): I24.8 - OTHER FORMS OF ACUTE ISCHEMIC HEART DISEASE (4) Alcohol intoxication Code(s): F10.929 - ALCOHOL USE, UNSPECIFIED WITH INTOXICATION, UNSPECIFIED Qualifiers: Complication of substance-induced condition: uncomplicated Qualified Code(s ): F10.920 - Alcohol use, unspecified with intoxication, uncomplicated (5) Chronic kidney disease Code(s): N18.9 - CHRONIC KIDNEY DISEASE, UNSPECIFIED Qualifiers: Chronic kidney disease stage: stage 2 (mild) Qualified Code(s): N18.2 - Chronic kidney disease, stage 2 (mild) (6) Syncope Code(s): R55 - SYNCOPE AND COLLAPSE Qualifiers: Syncope type: unspecified Qualified Code(s): R55 - Syncope and collapse Assessment/Plan Head CT neg for acute IC pathology, possible small chronic L parietal cortical infarct; mod. periventricular and subcortical chronic microvascular ischemic changes. 1. Syncope in context of alcohol intoxication 2. CAD demand ischemia 3. Persistent afib not a/c candidate due to active alcohol, outside gas station supervisor to reassess 4. Type 2 DM 5. CKD 6. Anemia P:1. Resume patient's usual cardiomyopathy meds likely including BALDO-I, BB, statin, ASA; a/c deferred due to active alcohol 2. Trops are downtrending 3. Librium detox, vitamins, PT for gait training 4. Patient has no alarms on telemetry over last 48 hours 5. F/u with outside gas station supervisor at Dr. Leon Francisco office
[2018-08-18] MEDS ORDERED: chlordiazePOXIDE 5 MG CAPSULE PO SCH (05:00)
[2018-08-18] MEDS: chlordiazePOXIDE 5 MG CAPSULE PO SCH ×2 (05:09→11:37)
[2018-08-18] MEDS: HEPARIN NA (PORCINE) 5,000 UNITS/ML 1ML VIAL SQ SCH ×2 (05:10→14:27)
[2018-08-18] MEDS: INSULIN SLIDING SCALE (NOVOLOG) 1 VIAL SQ SCH ×2 (06:24→11:43)
[2018-08-18 06:50] LABS: BASO % 0.9 % (0-2.0); EOS % 2.3 % (0-4.5); HEMATOCRIT 27.7 % (35.4-49); HEMOGLOBIN 8.3 GM/dL (11.7-16.9); MCHC 30.1 g/dl (32.0-35.9); MEAN CELL VOLUME 89.6 fl (80-96); MEAN PLT VOLUME 8.3 fl (7.5-11.1); NEUT % 45.8 % (42.8-82.8); PLATELET COUNT 132 K/MM3 (134-434); RBC 3.09 M/mm3 (4.00-5.60); RDW 18.5 % (11.9-15.9); WHITE BLOOD COUNT 4.3 K/mm3 (4.0-10.0)
[2018-08-18 08:02] LABS: ALBUMIN 3.2 g/dl (3.4-5.0); ALK PHOS 71 U/L (45-117); ANION GAP 6 MMOL/L (8-16); BILIRUBIN,TOTAL 0.6 mg/dL (0.2-1); BLOOD UREA NITROGEN 39 mg/dL (7-18); CALCIUM 8.4 mg/dL (8.5-10.1); CHLORIDE 112 mmol/L (98-107); CO2 21 mmol/L (21-32); CREATININE 1.6 mg/dL (0.55-1.3); GLUCOSE,RANDOM 103 mg/dL (74-106); MAGNESIUM 1.6 mg/dL (1.8-2.4); PHOSPHOROUS 3.8 mg/dL (2.5-4.9); POTASSIUM 4.9 mmol/L (3.5-5.1); SGOT/AST 43 U/L (15-37); SGPT/ALT 16 U/L (13-61); SODIUM 139 mmol/L (136-145); TOT PROT 7.5 g/dl (6.4-8.2)
[2018-08-18] MEDS: METOPROLOL TARTRATE 25 MG TABLET (FP) PO SCH (09:24)
[2018-08-18] MEDS: THIAMINE HCL 100 MG TABLET (FP) PO SCH (09:24)
[2018-08-18] MEDS: ASPIRIN 81 MG CHEWABLE TABLETS PO SCH (09:24)
[2018-08-18] MEDS: FOLIC ACID 1 MG TABLET (FP) PO SCH (09:24)
[2018-08-18] MEDS: LISINOPRIL 20 MG TABLET (FP) PO SCH (09:24)
--- NOTE | 2018-08-18 12:43 | ECHO ---
Name: NITHIN AYALA Exam:Adult Echocardiogram Study Date: 08/18/2018 07:29 AM Age: 68 yrs Reason For Study: SYNCOPE Height: 72 in Weight: 240 lb BSA: 2.3 m2 MMode/2D Measurements & Calculations RVDd: 3.8 cm Ao root diam: 3.7 cm IVSd: 1.00 cm LA dimension: 5.2 cm LVIDd: 6.3 cm ACS: 1.5 cm LVIDs: 5.2 cm LVPWd: 1.2 cm IVSs: 1.2 cm LVPWs: 1.4 cm EDV(Teich): 202.9 ml ESV(Teich): 128.1 ml Doppler Measurements & Calculations MV E max irasema: 78.4 cm/sec Ao V2 max: 127.3 cm/sec MV A max irasema: 32.9 cm/sec Ao max P.7 mmHg MV E/A: 2.4 Ao V2 mean: 93.5 cm/sec Ao mean P.9 mmHg Ao V2 VTI: 20.5 cm MR max irasema: 507.8 cm/sec TR max irasema: 321.6 cm/sec MR max P.6 mmHg TR max P.7 mmHg PI end-d irasema: 224.3 cm/sec Procedure The study was technically good with many images being of high quality. Left Ventricle The left ventricle is severely dilated. Ejection Fraction = 30%. There is severe global hypokinesis o f the left ventricle. Right Ventricle There is a pacemaker lead in the right ventricle. The right ventricular systolic function is mildly r educed. Atria The left atrium is severely dilated. The right atrium is severely dilated. Mitral Valve The mitral valve is normal. There is mild mitral regurgitation. Tricuspid Valve The tricuspid valve is not well visualized, but is grossly normal. There is severe tricuspid regurgit ation. Right ventricular systolic pressure is elevated at 61 mmhg. There is severe pulmonary hypertension. Aortic Valve There is moderate aortic sclerosis.;. The aortic valve is trileaflet. Pulmonic Valve The pulmonic valve is not well seen, but is grossly normal. Great Vessels The aortic root is normal size. Pericardium/Pleura There is no pericardial effusion. Interpretation Summary There is severe global hypokinesis of the left ventricle. The left ventricle is severely dilated. The right ventricular systolic function is mildly reduced. There is severe tricuspid regurgitation. There is severe pulmonary hypertension. Fermin Blum 08/18/2018 12:43 PM
--- NOTE | 2018-08-18 13:52 | PN ---
Teaching Attending Note Name of Resident: Joaquina Donohue ATTENDING PHYSICIAN STATEMENT I saw and evaluated the patient. I reviewed the resident's note and discussed the case with the resident. I agree with the resident's findings and plan as documented. SUBJECTIVE: Patient is better but was able to walk only 5 feet. OBJECTIVE: Vital Signs Temperature 97.9 F 08/18/18 09:28 Pulse Rate 84 08/18/18 09:28 Respiratory Rate 18 08/18/18 09:28 Blood Pressure 120/85 08/18/18 09:28 O2 Sat by Pulse Oximetry (%) 98 08/17/18 19:57 GENERAL: Awake and alert. NAD. HEENT: AT/NC. EOMI. STEPHIE. Dry mucus membranes. NECK: Normal range of motion, supple without lymphadenopathy, JVD, or masses. LUNGS: CTA B/L. No wheezes noted. HEART: Irregularly irregular. No murmurs noted. ABDOMEN: Soft, NT/ND. No bruits/masses. EXTREMITIES: 2+ pulses, warm, well-perfused. No cyanosis. No clubbing. No peripheral edema. NEUROLOGICAL: Cranial nerves II-XII intact. PSYCHIATRIC: Cooperative. Good eye contact. Appropriate mood and affect. SKIN: Warm, dry, normal turgor, no rashes or lesions noted, normal capillary refill. CBCD WBC 4.3 K/mm3 (4.0-10.0) 08/18/18 06:00 RBC 3.09 M/mm3 (4.00-5.60) L 08/18/18 06:00 Hgb 8.3 GM/dL (11.7-16.9) L 08/18/18 06:00 Hct 27.7 % (35.4-49) L 08/18/18 06:00 MCV 89.6 fl (80-96) 08/18/18 06:00 MCHC 30.1 g/dl (32.0-35.9) L 08/18/18 06:00 RDW 18.5 % (11.9-15.9) H 08/18/18 06:00 Plt Count 132 K/MM3 (134-434) L 08/18/18 06:00 MPV 8.3 fl (7.5-11.1) 08/18/18 06:00 CMP Sodium 139 mmol/L (136-145) 12/24/18 06:00 Potassium 4.9 mmol/L (3.5-5.1) 08/18/18 06:00 Chloride 112 mmol/L (98-107) H 08/18/18 06:00 Carbon Dioxide 21 mmol/L (21-32) 08/18/18 06:00 Anion Gap 6 MMOL/L (8-16) L 08/18/18 06:00 BUN 39 mg/dL (7-18) H 08/18/18 06:00 Creatinine 1.6 mg/dL (0.55-1.3) H 08/18/18 06:00 Creat Clearance w eGFR 42.95 (>60) 08/18/18 06:00 Random Glucose 103 mg/dL (74-106) 08/18/18 06:00 Calcium 8.4 mg/dL (8.5-10.1) L 08/18/18 06:00 Total Bilirubin 0.6 mg/dL (0.2-1) 08/18/18 06:00 AST 43 U/L (15-37) H 08/18/18 06:00 ALT 16 U/L (13-61) 08/18/18 06:00 Alkaline Phosphatase 71 U/L (45-117) 08/18/18 06:00 Total Protein 7.5 g/dl (6.4-8.2) 08/18/18 06:00 Albumin 3.2 g/dl (3.4-5.0) L 08/18/18 06:00 CARDIAC ENZYMES Creatine Kinase 137 IU/L (26-308) 08/16/18 13:20 Troponin I 1.40 ng/ml (0.00-0.05) H* 08/16/18 13:20 Current Medications Generic Name Dose Route Start Last Admin Trade Name Freq PRN Reason Stop Dose Admin Aspirin 81 mg 08/17/18 10:00 08/18/18 09:24 Asa - PO 81 mg DAILY ALEAH Administration Chlordiazepoxide HCl 25 mg 08/17/18 07:43 Librium - PO 08/19/18 01:04 Q4H PRN WITHDRAWAL(CONT SUBST) Chlordiazepoxide HCl 15 mg 08/18/18 05:00 08/18/18 11:37 Librium - PO 08/18/18 23:01 15 mg [id number] ALEAH Administration Chlordiazepoxide HCl 10 mg 08/19/18 05:00 Librium - PO 08/19/18 23:01 [id number] ALEAH Folic Acid 1 mg 08/17/18 10:45 08/18/18 09:24 Folic Acid - PO 1 mg DAILY ALEAH Administration Heparin Sodium (Porcine) 5,000 unit 08/17/18 14:00 08/18/18 05:10 Heparin - SQ 5,000 unit TID ALEAH Administration Insulin Aspart 1 vial 08/17/18 11:00 08/18/18 11:43 Novolog Vial Sliding Scale - SQ Not Given ACHS ALEAH Protocol Lisinopril 20 mg 08/17/18 10:00 08/18/18 09:24 Prinivil PO 20 mg DAILY ALEAH Administration Metoprolol Tartrate 25 mg 08/17/18 10:00 08/18/18 09:24 Lopressor - PO 25 mg BID ALEAH Administration Thiamine HCl 100 mg 08/17/18 10:45 08/18/18 09:24 Vitamin B1 - PO 100 mg DAILY ALEAH Administration Home Medications Medication Instructions Recorded Unobtainable 08/15/[address]: neg for acute IC pathology. Possible small chronic L parietal cortical infarct. Moderate periventricular and subcortical microvascular ischemic changes. repeat head CT is negative for an acute pathology. ASSESSMENT/PLAN: Patient is a 68yo male with pmhx of HTN, CAD s/p defibrillator, chronic Hep C, A.fib, DM was admitted for a syncopal episode most likely due to alcohol intoxication as per patient before the syncopal event had alcohol in his system. #Syncope: due to alcohol intoxication, no withdrawel symptoms #Alcohol Intoxication: on Librium protocol continue on 25mg q6h x 1 day today, will monitor for withdrawel, PT to evalaute the patient for gait and balance. #Elevated troponins; likely demand ischemia in setting of alcoholic intoxication. cardio. on the case. #acute renal injury over CKD: IVF continue #T2DM: ss with coverage. # DVT Px: Heparin 5000U SQ TID SNF if possible.
--- NOTE | 2018-08-18 15:17 | DS ---
Physical Exam: SUBJECTIVE: Patient seen and examined at bedside No acute events overnight. OBJECTIVE: Vital Signs Period Temp Pulse Resp BP Sys/Ott Pulse Ox Last 24 Hr 97.7 F-97.9 F 78-89 18-18 120-142/85-97 95-98 PHYSICAL EXAM GENERAL: The patient is drowsy but arousable, and oriented, in no acute distress. HEAD: Normal with no signs of trauma. EYES: PERRL, extraocular movements intact, sclera anicteric, conjunctiva clear. ENT: moist mucous membranes. NECK: supple. LUNGS: Breath sounds equal, clear to auscultation bilaterally HEART: Regular rate and rhythm, S1, S2 without murmur ABDOMEN: Soft, nontender, obese, normoactive bowel sounds EXTREMITIES: 2+ pulses, warm, well-perfused, no edema. NEUROLOGICAL: Mild tremors, Symetric face and tongue, intact sensations, able to move all extremities, Normal speech, gait not observed. LABS Laboratory Results - last 24 hr 08/17/18 08/17/18 08/18/18 16:29 22:10 05:08 WBC RBC Hgb Hct MCV MCH MCHC RDW Plt Count MPV Absolute Neuts (auto) Neutrophils % Lymphocytes % Monocytes % Eosinophils % Basophils % Nucleated RBC % Sodium Potassium Chloride Carbon Dioxide Anion Gap BUN Creatinine Creat Clearance w eGFR POC Glucometer 112 117 138 Random Glucose Calcium Phosphorus Magnesium Ferritin Total Bilirubin AST ALT Alkaline Phosphatase Total Protein Albumin 08/18/18 08/18/18 08/18/18 06:00 06:00 11:42 WBC 4.3 RBC 3.09 L Hgb 8.3 L Hct 27.7 L MCV 89.6 MCH 27.0 MCHC 30.1 L RDW 18.5 H Plt Count 132 L MPV 8.3 Absolute Neuts (auto) 2.0 Neutrophils % 45.8 D Lymphocytes % 42.0 H D Monocytes % 9.0 Eosinophils % 2.3 Basophils % 0.9 Nucleated RBC % 0 Sodium 139 Potassium 4.9 Chloride 112 H Carbon Dioxide 21 Anion Gap 6 L BUN 39 H Creatinine 1.6 H Creat Clearance w eGFR 42.95 POC Glucometer 109 Random Glucose 103 Calcium 8.4 L Phosphorus 3.8 Magnesium 1.6 L Ferritin 35.9 Total Bilirubin 0.6 AST 43 H ALT 16 Alkaline Phosphatase 71 Total Protein 7.5 Albumin 3.2 L HOSPITAL COURSE: Date of Admission:08/16/18 IMAGING: * Head CT: neg for acute IC pathology. Possible small chronic L parietal cortical infarct. Moderate periventricular and subcortical microvascular ischemic changes. * CXR (08/15/18): Since 11/18/14, large heart, folded aorta, and pacemaker. There is increased fullness of the jose francisco. There may be some blunting of the L angle. R lung is clear. * Carotid doppler (08/16/18): Essentially neg study. * Head CT (08/16/18): No acute bleed or fx. No CT evidence of acute infarct. 68M w/ pmhx of HTN, CAD s/p defibrillator, chronic Hep C, A.fib, DM was BIBEMS due to a syncopal episode 2/2 alcohol intoxication. Labs showed elevated troponins and as a result, cardio was consulted. Pt admitted to tele to r/o ACS and was found to have persistent a fib. Upon cardio eval, pt was placed on Lisinopril, Metoprolol, statin, aspirin, but AC was deferred due to pt's hx of fall and and active alcohol abuse. Additionally, pt was placed on Librium for alcohol detox. Over hospital course, pt's symptoms improved and was discharged to [facility] to continue Librium detox. He was given instructions to follow up with his manager in home and primary care physician. Date of Discharge: 08/18/18 Minutes to complete discharge: 40 Discharge Summary Reason For Visit: SICK Current Active Problems Chronic kidney disease (Chronic) ICD (implantable cardioverter-defibrillator) in place (Chronic) Condition: Improved - Instructions Diet, Activity, Other Instructions: You were seen in the hospital after a fainting episode. During your stay, a head CT was done that did not show any acute condition. Lab work showed abnormally high cardiac enzymes, and as a result, you were assessed by cardiology. You were not found to have an acute cardiac condition as the cause of your fainting episode. Additionally, you were started on Librium for alcohol detox. Your fainting episode was likely due to alcohol intoxication. It is important that you stop drinking alcohol in order to prevent future fainting episodes and other potentially fatal complications. You are being discharged to [facility] for continuation of alcohol detox as well as for rehab. MEDICAL RECOMMENDATIONS Please continue taking the following medications: You have been started on a Librium taper. You have 2 doses of Librium 15 mg left for today. Your next dose will be at 5: 30pm. Then take another dose at 11:30pm. When you have completed the above dose, please take Librium 10 mg starting tomorrow, 06/18/18, once every 6 hours. IT IS STRONGLY RECOMMENDED THAT YOU STOP DRINKING ALCOHOL. Please take Lisinopril 20 mg once a day by mouth. Please take Aspirin 81 mg once a day by mouth. Please take Lopressor 25 mg twice a day by mouth. Please take Folic Acid 1 mg once a day by mouth. Please take Thiamine HCl 100 mg once a day by mouth. CONSULT RECOMMENDATIONS Please follow up with your primary care physician, Dr. Francisco, within 1 week. Please follow up with your manager in home, Dr. German, within 1 week. If you experience another fainting episode, worsening chest pain or shortness of breath, difficulty walking, seizures, altered mental status, or other neurological symptoms, please proceed to your nearest emergency room immediately. Referrals: Leon Francisco MD [Primary Care Provider] - 1 Week Neeraj German MD [Staff Physician] - 1 Week Disposition: TRANSFER ACUTE CARE/OTHER HOSP - Home Medications Comprehensive Discharge Medication List: Ambulatory Orders Aspirin [ASA -] 81 mg PO DAILY tab.chew 08/18/18 Chlordiazepoxide [Librium -] 10 mg PO [id number] #8 capsule MDD 40 08/18/18 Chlordiazepoxide [Librium -] 15 mg PO [id number] #6 capsule MDD 60 08/18/18 Folic Acid - 1 mg PO DAILY tablet 08/18/18 Lisinopril [Prinivil] 20 mg PO DAILY tablet 08/18/18 Metoprolol Tartrate [Lopressor -] 25 mg PO BID tablet 08/18/18 Thiamine HCl [Vitamin B1 -] 100 mg PO DAILY tablet 08/18/18 This patient is new to me today: No Emergency Visit: Yes ED Registration Date: 08/16/18 Care time: The patient presented to the Emergency Department on the above date and was hospitalized for further evaluation of their emergent condition. Critical Care patient: No - Discharge Referral Referred to [facility] No
--- NOTE | 2018-08-18 16:00 | PN ---
Progress Note, Physician History of Present Illness: Resting comfortably, no event on telemetry, denies recurrent near or true syncope. - Current Medication List Current Medications: Active Medications Aspirin (Asa -) 81 mg PO DAILY [facility] Last Admin: 08/18/18 09:24 Dose: 81 mg Chlordiazepoxide HCl (Librium -) 25 mg PO Q4H PRN PRN Reason: WITHDRAWAL(CONT SUBST) Stop: 08/19/18 01:04 Chlordiazepoxide HCl (Librium -) 15 mg PO [id number] [facility] Stop: 08/18/18 23:01 Last Admin: 08/18/18 11:37 Dose: 15 mg Chlordiazepoxide HCl (Librium -) 10 mg PO [id number] [facility] Stop: 08/19/18 23:01 Folic Acid (Folic Acid -) 1 mg PO DAILY [facility] Last Admin: 08/18/18 09:24 Dose: 1 mg Heparin Sodium (Porcine) (Heparin -) 5,000 unit SQ TID [facility] Last Admin: 08/18/18 14:27 Dose: 5,000 unit Insulin Aspart (Novolog Vial Sliding Scale -) 1 vial SQ ACHS [facility]; Protocol Last Admin: 08/18/18 11:43 Dose: Not Given Lisinopril (Prinivil) 20 mg PO DAILY [facility] Last Admin: 08/18/18 09:24 Dose: 20 mg Metoprolol Tartrate (Lopressor -) 25 mg PO BID [facility] Last Admin: 08/18/18 09:24 Dose: 25 mg Thiamine HCl (Vitamin B1 -) 100 mg PO DAILY [facility] Last Admin: 08/18/18 09:24 Dose: 100 mg - Objective Vital Signs: Vital Signs Temperature 97.9 F 08/18/18 09:28 Pulse Rate 84 08/18/18 09:28 Respiratory Rate 18 08/18/18 09:28 Blood Pressure 120/85 08/18/18 09:28 O2 Sat by Pulse Oximetry (%) 95 08/18/18 09:00 Constitutional: Yes: No Distress, Calm Neck: Yes: Supple Cardiovascular: Yes: Pulse Irregular, Murmur (2/6 SM) Respiratory: Yes: Regular, Diminished Gastrointestinal: Yes: Normal Bowel Sounds, Soft Edema: No Labs: CBC, BMP 08/18/18 06:00 08/18/18 06:00 INR, PTT INR 1.12 (0.83-1.09) H 08/15/18 21:05 - ....Imaging EKG: Report Reviewed (Tele: Afib occ PVC) Problem List - Problems (1) Cardiomyopathy Code(s): I42.9 - CARDIOMYOPATHY, UNSPECIFIED Qualifiers: Cardiomyopathy type: unspecified Qualified Code(s): I42.9 - Cardiomyopathy , unspecified (2) ICD (implantable cardioverter-defibrillator) in place Code(s): Z95.810 - PRESENCE OF AUTOMATIC (IMPLANTABLE) CARDIAC DEFIBRILLATOR (3) Demand ischemia Code(s): I24.8 - OTHER FORMS OF ACUTE ISCHEMIC HEART DISEASE (4) Alcohol intoxication Code(s): F10.929 - ALCOHOL USE, UNSPECIFIED WITH INTOXICATION, UNSPECIFIED Qualifiers: Complication of substance-induced condition: uncomplicated Qualified Code(s ): F10.920 - Alcohol use, unspecified with intoxication, uncomplicated (5) Chronic kidney disease Code(s): N18.9 - CHRONIC KIDNEY DISEASE, UNSPECIFIED Qualifiers: Chronic kidney disease stage: stage 2 (mild) Qualified Code(s): N18.2 - Chronic kidney disease, stage 2 (mild) (6) Syncope Code(s): R55 - SYNCOPE AND COLLAPSE Qualifiers: Syncope type: unspecified Qualified Code(s): R55 - Syncope and collapse Assessment/Plan Head CT neg for acute IC pathology, possible small chronic L parietal cortical infarct; mod. periventricular and subcortical chronic microvascular ischemic changes. 08/18/2018 Echo: Dilated LV with severely decreased global HK LVEF 30%, mildly decreased RV fxn, severe TR, RVSP 61 mmHg 1. Syncope in context of alcohol intoxication 2. CAD demand ischemia 3. Persistent afib not a/c candidate due to active alcohol, outside dietetic technician to reassess 4. Ischemic cardiomyopathy s/p defibrillator 6. Type 2 DM 7. CKD 8. Anemia 9. Chronic Hep C P:1. Continue ASA 81 qd, lisinopril 20 qd, change to Toprol XL 25 qd; a/c deferred due to active alcohol 2. Trops are downtrending 3. Librium detox, vitamins, PT for gait training 4. Patient has no alarms on telemetry over last 72 hours 5. December d/c with f/u with outside dietetic technician at Dr. Leon Francisco office
[2018-08-18 16:41] VITALS: BP 128/82; PULSE 80; TEMP 97.2
[2018-08-19 04:09] LABS: SERUM IRON SATURATION 5 % (15-55); TOTAL IRON BINDING CAPACITY 415 ug/dL (250-450); UIBC 395 ug/dL (111-343)
[2018-08-19] MEDS ORDERED: chlordiazePOXIDE 5 MG CAPSULE PO SCH ×2 (05:00)
[2018-08-19] MEDS ORDERED: metoPROLOL SUCCINATE 25 MG TAB.SR.24H (FP) PO SCH (10:00)
== END 2018-08-18 17:30 | disposition short-term general hospital (02) | DRG 897 ==
LOC: JER 19:09 → JERBED 23:43 → OBSVTOIN 08-16 08:17 → J4S 08-17 01:29
PROVIDERS: ADMIT Internal Medicine; ATTEND Internal Medicine
PROC: HZ2ZZZZ Detoxification Services for Substance Abuse Treatment (ICD-10-PCS; principal; 2018-08-16)
DX: F10.129 Alcohol abuse with intoxication, unspecified (principal); I24.8 Other forms of acute ischemic heart disease; N17.9 Acute kidney failure, unspecified; I42.9 Cardiomyopathy, unspecified; I48.1 Persistent atrial fibrillation; R55 Syncope and collapse; I25.10 Atherosclerotic heart disease of native coronary artery without angina pectoris; B18.2 Chronic viral hepatitis C; E11.9 Type 2 diabetes mellitus without complications; F17.210 Nicotine dependence, cigarettes, uncomplicated; R26.9 Unspecified abnormalities of gait and mobility; D64.9 Anemia, unspecified; E66.9 Obesity, unspecified; Z68.32 Body mass index [BMI] 32.0-32.9, adult; Y90.6 Blood alcohol level of 120-199 mg/100 ml; I12.9 Hypertensive chronic kidney disease with stage 1 through stage 4 chronic kidney disease, or unspecified chronic kidney disease; E11.22 Type 2 diabetes mellitus with diabetic chronic kidney disease; N18.2 Chronic kidney disease, stage 2 (mild); Z95.810 Presence of automatic (implantable) cardiac defibrillator
CPT/HCPCS: 36415; 70450-TC; 71045-TC-FY; 80053; 80307; 81003; 81015; 82550; 82728; 82962; 83540; 83550; 83735; 84100; 84484; 85025; 85610; 93005; 93010; 93306-TC; 93880-TC; 97116-GP; 97161-GP; 99285-25; G0378; J1644; J7030

== ENCOUNTER 2018-08-18 17:06 | Inpatient (IN) | payer MEDICARE, OTHER ==
[2018-08-18 18:29] VITALS: BMI 29.5
--- NOTE | 2018-08-18 20:42 | HP ---
<JaimeshayanMabel davis - Last Filed: 08/18/18 21:25> CIWA Score - Admission Criteria [facility]ASAS Guidelines: Admission for Medically Managed Detox: Requires at least one of the followin. CIWA greater than 12 2. Seizures within the past 24 hours 3. Delirium tremens within the past 24 hours 4. Hallucinations within the past 24 hours 5. Acute intervention needed for co occurring medical disorder 6. Acute intervention needed for co occurring psychiatric disorder 7. Severe withdrawal that cannot be handled at a lower level of care (continued vomiting, continued diarrhea, abnormal vital signs) requiring intravenous medication and/or fluids 8. Admission ROS [facility] Chief Complaint: Seeking admission to Rehab Allergies/Adverse Reactions: Allergies Allergy/AdvReac Type Severity Reaction Status Date / Time No Known Allergies Allergy Verified 08/18/18 19:54 History of Present Illness: Patient was sent from [facility] after 4 days of detox. He has to complete 2 doses of Librium 15 mg left for today and librium 10mg Q6H x 1 day. Patient reports that he prefers to go to Rehab. and does not want to continue with detox. He denies withdrawal symptoms and is stable at this time. He has medical history of Hypertension, CAD s/p defibrillator, chronic Hep C, AFIB, DM Type 2 and Anemia. He reports periods of syncope Exam Limitations: No Limitations - Ebola screening Have you traveled outside of the country in the last 21 days: No (N) Have you had contact with anyone from an Ebola affected area: No Have you been sick,other than usual withdrawal symptoms: No Do you have a fever: No - Review of Systems Constitutional: No Symptoms Reported EENT: reports: No Symptoms Reported Respiratory: reports: No Symptoms reported Cardiac: reports: No Symptoms Reported GI: reports: No Symptoms Reported : reports: No Symptoms Reported Musculoskeletal: reports: No Symptoms Reported Integumentary: reports: No Symptoms Reported Hematology: reports: No Symptoms Reported Psychiatric: reports: No Sypmtoms Reported, Mood/Affect Appropiate Other Systems: Reviewed and Negative Patient History - Patient Medical History Hx Anemia: Yes Hx Asthma: No Hx Chronic Obstructive Pulmonary Disease (COPD): No Hx Cancer: No Hx Cardiac Disorders: Yes (AFIB, CAD S/P defribillator) Hx Congestive Heart Failure: No Hx Hypertension: Yes Hx Hypercholesterolemia: No Hx Pacemaker: No HX Cerebrovascular Accident: No Hx Seizures: No Hx Dementia: No Hx Diabetes: Yes Hx Liver Disease: Yes (Hep C) Hx Genitourinary Disorders: No Hx Sexually Transmitted Disorders: No Hx Renal Disease (ESRD): No Hx Thyroid Disease: No Hx Human Immunodeficiency Virus (HIV): No Hx Hepatitis C: Yes Hx Depression: Yes Hx Suicide Attempt: No (Denies suicidal ideation at this time) Hx Bipolar Disorder: No Hx Schizophrenia: No - Patient Surgical History Past Surgical History: No - PPD History Previous Implant?: No Documented Results: Negative w/o proof Implanted On Prior [facility] Admission?: No PPD to be Administered?: Yes - Reproductive History Patient is a Female of Child Bearing Age (11 -55 yrs old): No (MALE) - Smoking Cessation Smoking history: Current every day smoker Have you smoked in the past 12 months: Yes Aproximately how many cigarettes per day: 10 Hx Chewing Tobacco Use: No Initiated information on smoking cessation: Yes 'Breaking Loose' booklet given: 08/25/18 - Substance & Tx. History Hx Alcohol Use: Yes Hx Substance Use: No Substance Use Type: Alcohol Hx Substance Use Treatment: Yes ([facility]) Family Disease History - Family Disease History Family History: Denies Admission Physical Exam [facility] - Vital Signs Vital Signs: Vital Signs - 24 hr 08/18/18 18:15 Temperature 97.4 F L Pulse Rate 86 Respiratory 20 Rate Blood Pressure 143/80 - Physical General Appearance: Yes: Within Normal Limits HEENTM: Yes: EOMI, Normal ENT Inspection, Normal Voice, STEPHIE Respiratory: Yes: Lungs Clear, Normal Breath Sounds, No Respiratory Distress Neck: Yes: Supple Breast: Yes: Breast Exam Deferred Cardiology: Yes: Irregularly Irregular Abdominal: Yes: Normal Bowel Sounds, Distended Genitourinary: Yes: Within Normal Limits Extremities: Yes: Normal Inspection Neurological: Yes: Alert, Normal Mood/Affect Integumentary: Yes: Warm Lymphatic: Yes: Within Normal Limits - Diagnostic (1) Afib Current Visit: Yes Status: Chronic (2) HTN (hypertension) Current Visit: Yes Status: Chronic Qualifiers: Hypertension type: essential hypertension Qualified Code(s): I10 - Essential (primary) hypertension (3) Hep C w/o coma, chronic Current Visit: Yes Status: Chronic (4) DM type 2 (diabetes mellitus, type 2) Current Visit: Yes Status: Chronic Qualifiers: Diabetes mellitus complication status: with unspecified complications (5) Anemia Current Visit: Yes Status: Chronic Qualifiers: Anemia type: iron deficiency (6) Alcohol dependence Current Visit: Yes Status: Chronic Qualifiers: Substance use status: uncomplicated Qualified Code(s): F10.20 - Alcohol dependence, uncomplicated (7) Chronic kidney disease Current Visit: Yes Status: Chronic Qualifiers: Chronic kidney disease stage: stage 2 (mild) Qualified Code(s): N18.2 - Chronic kidney disease, stage 2 (mild) (8) ICD (implantable cardioverter-defibrillator) in place Current Visit: Yes Status: Chronic (9) Syncope Current Visit: Yes Status: Resolved Qualifiers: Syncope type: unspecified Qualified Code(s): R55 - Syncope and collapse Cleared for Admission [facility] - Detox or Rehab [facility] Level of Care: Observation Bed Claeared for Rehab Admission: Yes [facility] Breath Alcohol Content Breath Alcohol Content: 0 Urine Drug Screen - Results Drug Screen Negative: No Urine Drug Screen Results: BZO-Benzodiazepines Inpatient Rehab Admission - Initial Determination Are CD services needed?: Yes Free of communicable disease: Yes Not in need of hospitalization: Yes - Rehab Admission Criteria Previous failed treatment: No Poor recovery environment: Yes Comorbidities: Yes Lacks judgement: No Patient is meeting Inpatient Rehab admission criteria:: Yes <Marquez Knox - Last Filed: 08/20/18 13:00> CIWA Score - Admission Criteria [facility]AS Guidelines: Admission for Medically Managed Detox: Requires at least one of the followin. CIWA greater than 12 2. Seizures within the past 24 hours 3. Delirium tremens within the past 24 hours 4. Hallucinations within the past 24 hours 5. Acute intervention needed for co occurring medical disorder 6. Acute intervention needed for co occurring psychiatric disorder 7. Severe withdrawal that cannot be handled at a lower level of care (continued vomiting, continued diarrhea, abnormal vital signs) requiring intravenous medication and/or fluids 8. Admission Physical Exam [facility] - Vital Signs Vital Signs: Vital Signs - 24 hr 08/19/18 08/20/18 08/20/18 21:07 00:30 03:30 Temperature Pulse Rate 80 Respiratory 18 16 16 Rate Blood Pressure 145/90 08/20/18 07:07 Temperature 97.6 F Pulse Rate 90 Respiratory 20 Rate Blood Pressure 139/92 - Diagnostic (1) Alcohol dependence Current Visit: Yes Status: Chronic Qualifiers: Substance use status: uncomplicated Qualified Code(s): F10.20 - Alcohol dependence, uncomplicated
[2018-08-18] MEDS ORDERED: MAGNESIUM HYDROX 2400MG/30ML ORAL SUSPENSION 30 ML CUP PO PRN (21:11)
[2018-08-18] MEDS ORDERED: NICOTINE POLACRILEX 2 MG GUM BC PRN (21:11)
[2018-08-18] MEDS ORDERED: MAGNESIUM CITRATE 300 ML BOTTLE PO PRN (21:11)
[2018-08-18] MEDS ORDERED: MENTHOL/PHENOL 1 EACH UD MM PRN (21:11)
[2018-08-18] MEDS ORDERED: P-EPHED 60MG/TRIPROLIDI 2.5MG TABLET PO PRN (21:11)
[2018-08-18] MEDS ORDERED: LOPERAMIDE HCL 2 MG CAPSULE PO PRN (21:11)
[2018-08-18] MEDS ORDERED: guaiFENesin/D-METHORPHAN HB 10 ML UNIT-DOSE CUPS PO PRN (21:11)
[2018-08-18] MEDS ORDERED: MAG HYDROX/AL HYDROX/SIMETH 30 ML UNIT-DOSE CUP PO PRN (21:11)
[2018-08-18] MEDS ORDERED: MELATONIN 5 MG TABLETS PO PRN (22:00)
[2018-08-18] MEDS: THIAMINE HCL 100 MG TABLET (FP) PO SCH (22:25)
[2018-08-18] MEDS: METOPROLOL TARTRATE 25 MG TABLET (FP) PO SCH (22:27)
[2018-08-19 00:02] LABS: URINE APPEARANCE CLEAR; URINE BILIRUBIN NEGATIVE (<2.0 mg/dL); URINE COLOR YELLOW; URINE GLUCOSE (UA) NEGATIVE (NEGATIVE); URINE KETONE NEGATIVE (NEGATIVE); URINE LEUK ESTERASE NEGATIVE (NEGATIVE); URINE NITRITE NEGATIVE (NEGATIVE); URINE PROTEIN 1+ (NEGATIVE)
[2018-08-19 00:08] LABS: EPI CELLS RARE /HPF (FEW); URINE MUCUS RARE
[2018-08-19] MEDS ORDERED: THIAMINE HCL 100 MG TABLET (FP) PO SCH (10:00)
[2018-08-19 10:54] LABS: ALBUMIN 3.7 g/dl (3.4-5.0); ALK PHOS 86 U/L (45-117); ANION GAP 7 MMOL/L (8-16); BILIRUBIN,TOTAL 0.5 mg/dL (0.2-1); BLOOD UREA NITROGEN 42 mg/dL (7-18); CALCIUM 8.8 mg/dL (8.5-10.1); CHLORIDE 113 mmol/L (98-107); CO2 21 mmol/L (21-32); CREATININE 1.7 mg/dL (0.55-1.3); GLUCOSE,RANDOM 92 mg/dL (74-106); POTASSIUM 4.4 mmol/L (3.5-5.1); SGOT/AST 34 U/L (15-37); SGPT/ALT 18 U/L (13-61); SODIUM 141 mmol/L (136-145); TOT PROT 8.1 g/dl (6.4-8.2)
[2018-08-19] MEDS: METOPROLOL TARTRATE 25 MG TABLET (FP) PO SCH ×2 (10:55→21:47)
[2018-08-19] MEDS: PRENATAL VITAMINS W/ FOLIC ACID TABLET (FP) PO SCH (10:55)
[2018-08-19] MEDS: LISINOPRIL 20 MG TABLET (FP) PO SCH (10:55)
[2018-08-19] MEDS: ASPIRIN 81 MG CHEWABLE TABLETS PO SCH (10:55)
[2018-08-19] MEDS: metFORMIN HCL 500 MG TABLET (FP) PO SCH ×2 (10:55→16:53)
[2018-08-19] MEDS: NICOTINE 14 MG/24 HOURS TOPICAL PATCH TD SCH (10:56)
[2018-08-19] MEDS ORDERED: INSULIN SLIDING SCALE (NOVOLOG) 1 VIAL SQ SCH (11:00)
[2018-08-19 11:10] LABS: HEMATOCRIT 27.7 % (35.4-49); HEMOGLOBIN 8.3 GM/dL (11.7-16.9); MCH 27.2 pg (25.7-33.7); MCHC 29.9 g/dl (32.0-35.9); MEAN CELL VOLUME 90.7 fl (80-96); MEAN PLT VOLUME 9.3 fl (7.5-11.1); PLATELET COUNT 127 K/MM3 (134-434); RBC 3.05 M/mm3 (4.00-5.60); RDW 18.2 % (11.9-15.9)
--- NOTE | 2018-08-19 11:48 | PN ---
[facility] Progress Note Note: PT SEEN THIS MORNING LAYING IN BED. PT C/O GENERALIZED PAIN "ALL OVER AND CAN'T GET OUT OF BED EASILY". PT WAS DISCHARGED FROM [facility] YESTERDAY TO REHAB HERE. PT WAS INPATIENT AT [facility] FROM 08/15(22?) - 08/18/18 FOR SYNCOPE AFTER A DRINKING BINGE AROUND [facility] [place](SEE ED PHYSICIAN NOTES). ED D/C SUMMARY FROM [facility]: Discharge Summary Reason For Visit: SICK Current Active Problems Chronic kidney disease (Chronic) ICD (implantable cardioverter-defibrillator) in place (Chronic) Condition: Improved - Instructions Diet, Activity, Other Instructions: You were seen in the hospital after a fainting episode. During your stay, a head CT was done that did not show any acute condition. Lab work showed abnormally high cardiac enzymes, and as a result, you were assessed by cardiology. You were not found to have an acute cardiac condition as the cause of your fainting episode. Additionally, you were started on Librium for alcohol detox. Your fainting episode was likely due to alcohol intoxication. It is important that you stop drinking alcohol in order to prevent future fainting episodes and other potentially fatal complications. You are being discharged to [facility] for continuation of alcohol detox as well as for rehab. MEDICAL RECOMMENDATIONS Please continue taking the following medications: You have been started on a Librium taper. You have 2 doses of Librium 15 mg left for today. Your next dose will be at 5: 30pm. Then take another dose at 11:30pm. When you have completed the above dose, please take Librium 10 mg starting tomorrow, 06/18/18, once every 6 hours. IT IS STRONGLY RECOMMENDED THAT YOU STOP DRINKING ALCOHOL. Please take Lisinopril 20 mg once a day by mouth. Please take Aspirin 81 mg once a day by mouth. Please take Lopressor 25 mg twice a day by mouth. Please take Folic Acid 1 mg once a day by mouth. Please take Thiamine HCl 100 mg once a day by mouth. CONSULT RECOMMENDATIONS Please follow up with your primary care physician, Dr. Chandra, within 1 week. Please follow up with your elevator operator service, Dr. German, within 1 week. If you experience another fainting episode, worsening chest pain or shortness of breath, difficulty walking, seizures, altered mental status, or other neurological symptoms, please proceed to your nearest emergency room immediately. Referrals: Leon Chandra MD [Primary Care Provider] - 1 Week Neeraj German MD [Staff Physician] - 1 Week Disposition: HOME - Home Medications Comprehensive Discharge Medication List: Ambulatory Orders Aspirin [ASA -] 81 mg PO DAILY tab.chew 08/18/18 Chlordiazepoxide [Librium -] 10 mg PO [id number] #8 capsule MDD 40 08/18/18 Chlordiazepoxide [Librium -] 15 mg PO [id number] #6 capsule MDD 60 08/18/18 Folic Acid - 1 mg PO DAILY tablet 08/18/18 Lisinopril [Prinivil] 20 mg PO DAILY tablet 08/18/18 Metoprolol Tartrate [Lopressor -] 25 mg PO BID tablet 08/18/18 Thiamine HCl [Vitamin B1 -] 100 mg PO DAILY tablet 08/18/18 - Discharge Referral Referred to [facility] No OTHER PMHx: HTN TYPE 2 DM CHRONIC PAIN WALKS WITH A CANE PT REPORTS HE TAKES ADVIL FOR PAIN AND PMD REPORTED ABOVE DR. LEON CHANDRA ON [address] [place] [address]. PT REPORTS HE HAS A SISTER WHO LIVES ON [facility] BUT DOES NOT WANT HER CONTACTED BECAUSE DOES NOT WANT HER TO KNOW HE IS HERE BECAUSE HE MESSED UP-"SHE IS ALWAYS ON MY BACK". MEANWHILE; CARDIAC: SI S2 RR LUNGS CTA ABDOMEN:SOFT, PROTUBERENT, BS+ EXTREMITIES:SLIGHT EDEMA, NON PITTING TO ANKLES, BILATERAL ACTIVE ROM BUT WITH PAINFUL MOANS. PLAN:ADD LIDOCAINE PATCH TD DIRECTED ENCOURAGE HYDRATION AND NUTRITION TOLERATED
[2018-08-19] MEDS: IBUPROFEN 400 MG TABLET (FP) PO PRN (13:21)
[2018-08-19] MEDS: LIDOCAINE 5% TOPICAL PATCH TP SCH (13:21)
[2018-08-19] MEDS: THIAMINE HCL 100 MG TABLET (FP) PO SCH (21:47)
[2018-08-19] MEDS: LIDOCAINE PATCH REMOVAL MC SCH (21:57)
[2018-08-20] MEDS: metFORMIN HCL 500 MG TABLET (FP) PO SCH ×2 (06:14→16:49)
[2018-08-20] MEDS: IBUPROFEN 400 MG TABLET (FP) PO PRN ×2 (07:03→16:49)
--- NOTE | 2018-08-20 07:09 | HP ---
Psychiatrist Admission - Data Date of interview: 08/20/18 Admission source: [facility] Identifying data: This is the first [facility] admission for this 68 years old single Black male, living as , domiciled Medical History: Significant for anemia, hypertension, AFib, coronary artery disease with s/p defibrilator, type 2 diabetes mellitus and history of treatment for hepatitis C. Smoke 10 cigarettes daily Psychiatric History: Denies history of previous psychiatric treatment Physical/Sexual Abuse/Trauma History: Denies history of emotional, physical or sexual abuse as well as DV relationship. No service Additional Comment: Reports history of 4-5 previous misdemeanor arrests for disorderly conduct Vital Signs: Vital Signs - 24 hr 08/19/18 08/20/18 08/20/18 21:07 00:30 03:30 Temperature Pulse Rate 80 Respiratory 18 16 16 Rate Blood Pressure 145/90 08/20/18 07:07 Temperature 97.6 F Pulse Rate 90 Respiratory 20 Rate Blood Pressure 139/92 Allergies/Adverse Reactions: Allergies Allergy/AdvReac Type Severity Reaction Status Date / Time No Known Allergies Allergy Verified 08/18/18 19:54 Date of last physical exam: 08/18/18 Concur with the findings of this exam: Yes - Substance Abuse/Tx History Hx Alcohol Use: Yes Substance Use Type: Alcohol (Started drinking alcohol at age 13, consumes 10x 24oz of beer daily. Lat drank on 08/16/18) Hx Substance Use Treatment: Yes (Multiple previous inpt detox & one inpt rehab) Mental Status Exam - Mental Status Exam Alert and Oriented to: Place, Person Cognitive Function: Fair Patient Appearance: Well Groomed Mood: Depressed Affect: Appropriate Patient Behavior: Cooperative Speech Pattern: Clear Voice Loudness: Normal Thought Process: Intact, Goal Oriented Hallucinations: Denies Suicidal Ideation: Denies Homicidal Ideation: Denies Insight/Judgement: Fair Sleep: Well Appetite: Good Muscle strength/Tone: Normal Gait/Station: Normal Psychiatric Findings - Problem List (Bowman 1, 2,3) (1) Alcohol dependence Current Visit: Yes Status: Acute Qualifiers: Substance use status: uncomplicated Qualified Code(s): F10.20 - Alcohol dependence, uncomplicated (2) Nicotine dependence Current Visit: Yes Status: Chronic (3) Alcohol-induced mood disorder Current Visit: Yes Status: Acute (4) Afib Current Visit: Yes Status: Chronic (5) Anemia Current Visit: Yes Status: Chronic Qualifiers: Anemia type: iron deficiency (6) DM type 2 (diabetes mellitus, type 2) Current Visit: Yes Status: Chronic Qualifiers: Diabetes mellitus complication status: with unspecified complications (7) HTN (hypertension) Current Visit: Yes Status: Chronic Qualifiers: Hypertension type: essential hypertension Qualified Code(s): I10 - Essential (primary) hypertension (8) Hep C w/o coma, chronic Current Visit: Yes Status: Chronic - Initial Treatment Plan Initial Treatment Plan: Monitor progress
[2018-08-20] MEDS: LIDOCAINE 5% TOPICAL PATCH TP SCH (10:23)
[2018-08-20] MEDS: ASPIRIN 81 MG CHEWABLE TABLETS PO SCH (10:23)
[2018-08-20] MEDS: LISINOPRIL 20 MG TABLET (FP) PO SCH (10:23)
[2018-08-20] MEDS: METOPROLOL TARTRATE 25 MG TABLET (FP) PO SCH ×2 (10:23→21:22)
[2018-08-20] MEDS: PRENATAL VITAMINS W/ FOLIC ACID TABLET (FP) PO SCH (10:23)
[2018-08-20] MEDS: NICOTINE 14 MG/24 HOURS TOPICAL PATCH TD SCH (10:24)
[2018-08-20] MEDS: THIAMINE HCL 100 MG TABLET (FP) PO SCH (21:22)
[2018-08-20] MEDS: LIDOCAINE PATCH REMOVAL MC SCH (21:22)
[2018-08-21] MEDS: IBUPROFEN 400 MG TABLET (FP) PO PRN (06:09)
[2018-08-21] MEDS: metFORMIN HCL 500 MG TABLET (FP) PO SCH ×2 (06:09→16:57)
[2018-08-21] MEDS: LIDOCAINE 5% TOPICAL PATCH TP SCH (10:05)
[2018-08-21] MEDS: METOPROLOL TARTRATE 25 MG TABLET (FP) PO SCH ×2 (10:05→23:08)
[2018-08-21] MEDS: ASPIRIN 81 MG CHEWABLE TABLETS PO SCH (10:05)
[2018-08-21] MEDS: PRENATAL VITAMINS W/ FOLIC ACID TABLET (FP) PO SCH (10:06)
[2018-08-21] MEDS: LISINOPRIL 20 MG TABLET (FP) PO SCH (10:06)
[2018-08-21] MEDS: ACETAMINOPHEN 325 MG TABLET (FP) PO PRN (10:07)
[2018-08-21] MEDS: NICOTINE 14 MG/24 HOURS TOPICAL PATCH TD SCH (10:10)
[2018-08-21] MEDS: LIDOCAINE PATCH REMOVAL MC SCH (23:07)
[2018-08-21] MEDS: THIAMINE HCL 100 MG TABLET (FP) PO SCH (23:08)
[2018-08-22] MEDS: IBUPROFEN 400 MG TABLET (FP) PO PRN ×2 (06:10→21:14)
[2018-08-22] MEDS: metFORMIN HCL 500 MG TABLET (FP) PO SCH ×2 (06:10→16:48)
[2018-08-22] MEDS: PRENATAL VITAMINS W/ FOLIC ACID TABLET (FP) PO SCH (10:18)
[2018-08-22] MEDS: ASPIRIN 81 MG CHEWABLE TABLETS PO SCH (10:18)
[2018-08-22] MEDS: METOPROLOL TARTRATE 25 MG TABLET (FP) PO SCH ×2 (10:18→21:15)
[2018-08-22] MEDS: LIDOCAINE 5% TOPICAL PATCH TP SCH (10:18)
[2018-08-22] MEDS: ACETAMINOPHEN 325 MG TABLET (FP) PO PRN (10:19)
[2018-08-22] MEDS: LISINOPRIL 20 MG TABLET (FP) PO SCH (10:19)
[2018-08-22] MEDS: NICOTINE 14 MG/24 HOURS TOPICAL PATCH TD SCH (10:21)
[2018-08-22] MEDS: THIAMINE HCL 100 MG TABLET (FP) PO SCH (21:14)
[2018-08-22] MEDS: LIDOCAINE PATCH REMOVAL MC SCH (21:18)
[2018-08-23] MEDS ORDERED: ONDANSETRON *ODT* 4 MG TABLET SL PRN (02:59)
[2018-08-23] MEDS ORDERED: cloNIDine HCL 0.1 MG TABLET PO ONE (06:29)
[2018-08-23 06:40] VITALS: TEMP 97.7
[2018-08-23] MEDS: metFORMIN HCL 500 MG TABLET (FP) PO SCH ×2 (09:06→19:20)
[2018-08-23 09:47] VITALS: BP 134/91; PULSE 56
[2018-08-23] MEDS: LISINOPRIL 20 MG TABLET (FP) PO SCH (10:42)
[2018-08-23] MEDS: ASPIRIN 81 MG CHEWABLE TABLETS PO SCH (10:42)
[2018-08-23] MEDS: METOPROLOL TARTRATE 25 MG TABLET (FP) PO SCH (10:42)
[2018-08-23] MEDS: PRENATAL VITAMINS W/ FOLIC ACID TABLET (FP) PO SCH (10:44)
[2018-08-23] MEDS: NICOTINE 14 MG/24 HOURS TOPICAL PATCH TD SCH (10:44)
[2018-08-23] MEDS: LIDOCAINE 5% TOPICAL PATCH TP SCH (10:44)
--- NOTE | 2018-08-23 13:29 | PN ---
[facility] Progress Note Note: RECEIVED CALL FROM LUCINA MORALES TO EVALUATE PATIENT FOR POSSIBLE CHANGE IN MENTAL STATUS. PATIENT IN WHEELCHAIR AND APPEARS LETHARGIC, HOWEVER, IS AROUSABLE. PATIENT A & O X 2 (DISORIENTED TO CURRENT DAY / DATE). VISIBLE PULSATING NOTED ON BILATERAL SIDE ASPECTS OF NECK. PATIENT DENIES H/A AND PAIN IN NECK. PATIENT DENEIS ANY KNOWN HISTORY DISORDER OF CAROTID ARTERY. MEDICAL HISTORY INCLUDES: HTN, TYPE II DM, ICD IN PLACE, A-FIB, ANEMIA, CKD, HEP C, AND SYNCOPE. VS: BP: 134/92; P: 107; RR: 20; T; 97.3. BGM NOTED TO BE 46. JUICE GIVEN TO PATIENT. REPORT GIVEN TO DR. CARRENO AT [facility] [place]. PATIENT TO BE TAKEN TO [facility] [place] FOR FURTHER EVALUATION. Jayden DODD NP.
[2018-08-23] MEDS ORDERED: LORazepam 2 MG/ML SDV VIAL IVPUSH ONE (18:37)
== END 2018-08-23 22:55 | disposition short-term general hospital (02) | DRG 895 ==
LOC: YASAS 17:06 → Y3W 20:53
PROVIDERS: ADMIT Psychiatry & Neurology Psychiatry; ATTEND Psychiatry & Neurology Psychiatry
PROC: HZ42ZZZ Group Counseling for Substance Abuse Treatment, Cognitive-Behavioral (ICD-10-PCS; principal; 2018-08-18)
DX: F10.20 Alcohol dependence, uncomplicated (principal); F17.210 Nicotine dependence, cigarettes, uncomplicated; F10.24 Alcohol dependence with alcohol-induced mood disorder; I48.91 Unspecified atrial fibrillation; I25.10 Atherosclerotic heart disease of native coronary artery without angina pectoris; I12.9 Hypertensive chronic kidney disease with stage 1 through stage 4 chronic kidney disease, or unspecified chronic kidney disease; N18.2 Chronic kidney disease, stage 2 (mild); E11.9 Type 2 diabetes mellitus without complications; Z79.84 Long term (current) use of oral hypoglycemic drugs; D50.9 Iron deficiency anemia, unspecified; R55 Syncope and collapse; B18.2 Chronic viral hepatitis C; Z95.810 Presence of automatic (implantable) cardiac defibrillator; R26.89 Other abnormalities of gait and mobility; Z99.89 Dependence on other enabling machines and devices
CPT/HCPCS: 36415; 80053; 81003; 81015; 82962; 85027; 86593; J0735; Q0162

== ENCOUNTER 2018-08-23 14:21 | Inpatient (IN) | payer MEDICARE, OTHER ==
--- NOTE | 2018-08-23 15:08 | PDOC ---
History of Present Illness - General Chief Complaint: Blood Sugar Problem Stated Complaint: BLOOD SUGAR PROBLEM Time Seen by Provider: 08/23/18 14:53 - History of Present Illness Initial Comments: 08/23/18 15:59 The patient is a 68 year old male with a history of HTN, DM, Afib, CAD s/p Defibrillator, Anemia, Alcohol abuse who presents from [facility] for evaluation of lethargy. Per [facility], the patient was noted to be more lethargic earlier this morning. They noted the patient's blood sugar to be 46 and gave the patient some juice. The patient noted that he has felt more "tired " recently with cough and some shortness of breath but otherwise denies fevers, chills, headache, chest pain, nausea, vomiting, abdominal pain, or changes with urination or bowel movements. Past History - Past Medical History Allergies/Adverse Reactions: Allergies Allergy/AdvReac Type Severity Reaction Status Date / Time No Known Allergies Allergy Verified 08/18/18 19:54 Home Medications: Ambulatory Orders Aspirin [ASA -] 81 mg PO DAILY tab.chew 08/18/18 Chlordiazepoxide [Librium -] 10 mg PO [id number] #8 capsule MDD 40 08/18/18 Folic Acid - 1 mg PO DAILY tablet 08/18/18 Lisinopril [Prinivil] 20 mg PO DAILY tablet 08/18/18 Metoprolol Tartrate [Lopressor -] 25 mg PO BID tablet 08/18/18 Thiamine HCl [Vitamin B1 -] 100 mg PO DAILY tablet 08/18/18 Metformin HCl [Glucophage] 500 mg PO BID 08/19/18 Anemia: Yes Asthma: No Cancer: No Cardiac Disorders: Yes (AFIB, CAD S/P defribillator) CVA: No COPD: No CHF: No Dementia: No Diabetes: Yes GI Disorders: Yes (Hep C) Disorders: No HTN: Yes Hypercholesterolemia: No Kidney Stones: No Liver Disease: Yes (Hep C) Seizures: No Thyroid Disease: No - Surgical History Abdominal Surgery: No Appendectomy: No Cardiac Surgery: No Cholecystectomy: No Lung Surgery: No Neurologic Surgery: No Orthopedic Surgery: No - Reproductive History Testicular Surgery: No - Suicide/Smoking/Psychosocial Hx Smoking History: Current every day smoker Have you smoked in the past 12 months: Yes Number of Cigarettes Smoked Daily: 10 'Breaking Loose' booklet given: 08/25/18 Hx Alcohol Use: Yes Drug/Substance Use Hx: No Substance Use Type: Alcohol Hx Substance Use Treatment: Yes ([facility]) Review of Systems - Review of Systems Comments:: 08/23/18 16:04 Constitutional: Fatigue. No fevers, chills, malaise HEENT: No Rhinorrhea, nasal congestion, visual changes Cardiovascular: No chest pain, syncope, palpitations, lightheadedness Respiratory: Cough, SOB No Hemoptysis, Gastrointestinal: No Abdominal pain, Nausea, Vomiting, Constipation, Diarrhea, Melena Genitourinary: No Dysuria, Frequency, Urgency, Hesitancy, Hematuria, Flank pain Musculoskeletal: No Myalgia, arthralgia Skin: No rashes, itching, bruising, pallor Neurologic: No Headache, Dizziness, Numbness, Weakness, or Tingling Psychiatric: No Hallucinations. No SI or HI *Physical Exam - Physical Exam Comments: 08/23/18 16:06 General Appearance: Nourished. No Apparent Distress HEENT: EOMI, STEPHIE. No Pharyngeal Erythema, Tonsillar Exudate, Tonsillar Erythema Neck: No Cervical Lymphadenopathy Respiratory/Chest: Lungs Clear, Normal Breath Sounds. Bibasilar rales noted on exam. No Rhonchi, Wheezing Cardiovascular: Irregularly Irregular Rhythm, Regular Rate. 3/6 Systolic Murmur noted on exam. Significant JVD to the angle of the mandible noted on exam. No Gallops, Rubs Gastrointestinal/Abdominal: Normal Bowel Sounds, Soft. No Guarding, Rebound, Tenderness Musculoskeletal: No CVA Tenderness Extremity: Normal Capillary Refill Integumentary: Normal Color, Dry, Warm Neurologic: Oriented x2, Alert, Normal Mood/Affect, Normal Response, Heart Score/ECG Review #1 ECG reviewed & interpreted by me at: 16:08 General ECG Interpretation: No acute ischemic changes 08/23/18 16:08 Atrial Fibrillation Incomplete Right Bundle Branch Block Right Ventricular Hypertrophy Prolonged QT ED Treatment Course - LABORATORY CBC & Chemistry Diagram: 08/23/18 15:42 08/23/18 15:42 - ADDITIONAL ORDERS Additional order review: Laboratory Results 08/23/18 14:41 POC Glucometer 120.54104 08/23/18 14:41 POC Glucometer 120.90772 Medical Decision Making - Medical Decision Making 08/23/18 16:09 The patient is a 68 year old male with a history of HTN, DM, Afib, CAD s/p Defibrillator, Anemia, Alcohol abuse who presents from [facility] for evaluation of lethargy. Differential includes but is not limited to: CHF, Hypoglycemia, ACS, Arrhythmia, Infectious, Metabolic derangement. Given the patient's history and physical exam, we will obtain a cbc, cmp, troponin, bnp, ua, EKG, chest plain film to evaluate further. We will continue to monitor and reassess while here in the ED. 08/23/18 18:47 CBC is unremarkable. CMP demonstrates an elevated creatinine to 2.3. Troponin is elevated to 0.34. BNP [place] elevated to 64681e. Potassium is elevated to 6.1 however laboratory called to inform that the sample was slightly hemolized. We will obtain a repeat bmp to re-evaluate the potassium. Chest plan film demonstrates congestive findings. We treated the patient with 20mg of lasix. It is likely the patient's symptoms are due to a CHF exacerbation. He will require admission for further management. We discussed the case with the hospitalist team who accepted the patient for admission. *DC/Admit/Observation/Transfer Diagnosis at time of Disposition: NAS (acute kidney injury) CHF (congestive heart failure) Qualifiers: Heart failure type: unspecified Heart failure chronicity: unspecified Qualified Code(s): I50.9 - Heart failure, unspecified - Discharge Dispostion Condition at time of disposition: Stable Decision to Admit order: Yes - Referrals Referrals: Leon Francisco MD [Primary Care Provider] - - Patient Instructions - Post Discharge Activity
--- NOTE | 2018-08-23 15:14 | PDOC ---
Attending Attestation - HPI HPI: 08/23/18 16:44 The patient is a 68 year old male with a significant past medical history of hypertension, CAD, chronic hep C, a fib, diabetes and etoh abuse who presents to the emergency department via EMS from [facility] for low blood sugar. As per EMS, the patient signed in to detox at [facility] recently and was recently admitted for lethargy. Since earlier today it was noted that the patient had increased lethargy and a blood sugar of 46. The patient has a JVD (carotid doppler done on 08/20 was normal). Further patient history is limited secondary to patient status. Documentation prepared by Clayton Garcia, acting as medical center manager for Tavia Vásquez MD. <Clayton Garcia - Last Filed: 08/23/18 16:44> - Resident Resident Name: Bakari Gonzalez - HPI HPI: 08/23/18 17:50 I, Dr. Tavia Vásquez, attest that the scribes documentation that appears above has been prepared under my direction and personally reviewed by me. I confirmed that the note above accurately reflects all work, treatment, procedures, and medical decision-making performed by me. - Physicial Exam PE: 08/23/18 17:50 68 y/o male seen lying on stretcher, pt is sleepy but arousabel to verbal stimuli, initially seemed confused but was oriented to month and year HEENT: NCAT Letty Neck: Dk JVD with pulsation of rt carotid artery Lungs: + bs dk cta Heart: s1s2 irregular Abd: +_ Bs abd soft no guarding or tenderness Ext: no edema Neuro: pt appears sleepy but arousabel to verbal stimuli, disoriented to place thought he was [place] no focal deficits 08/23/18 17:52 08/23/18 17:54 - Medical Decision Making 08/23/18 17:57 68 y/o male referred from [facility] due to altered menatl status and pulsation of r carotid artery on physical exam. Pt with elevated bnp, and jvd on exam treated with lasix, limited sonogram of rt carotid artery ordered to r/o anneurysm, pt with mildly elevated troponin will require hospitalization for chf exacerbation, diuresis and serial troponins, pt agreable to admisison <Tavia Vásquez - Last Filed: 08/23/18 18:00> Heart Score/ECG Review - History History: Slightly suspicious - Risk Factors Risk Factors Heart Score: Yes Hx Hypertension, Yes Smoking History, Yes Hx Obesity Based on the list above the patient has:: 1-2 risk factors - Troponin Troponin: 1-3x normal limit - Score Heart Score - Total: 3 - ECG Intrepretation Rhythm: Irregularly Irregular (atrial fib at 92 incompleter rt bbb) <Tavia Vásquez - Last Filed: 08/23/18 18:00>
[2018-08-23 16:19] LABS: BASO % 0.2 % (0-2.0); EOS % 0.1 % (0-4.5); HEMATOCRIT 26.8 % (35.4-49); HEMOGLOBIN 8.7 GM/dL (11.7-16.9); LYMPH % 3.4 % (8-40); MCH 28.7 pg (25.7-33.7); MCHC 32.4 g/dl (32.0-35.9); MEAN CELL VOLUME 88.7 fl (80-96); MEAN PLT VOLUME 8.7 fl (7.5-11.1); MONO % 8.2 % (3.8-10.2); NEUT % 88.1 % (42.8-82.8); PLATELET COUNT 162 K/MM3 (134-434); RBC 3.02 M/mm3 (4.00-5.60); RDW 18.3 % (11.9-15.9); WHITE BLOOD COUNT 10.4 K/mm3 (4.0-10.0)
[2018-08-23] MEDS ORDERED: FUROSEMIDE 40 MG/4 ML INJECTABLE VIAL IVPUSH ONE (16:27)
[2018-08-23] MEDS ORDERED: FUROSEMIDE 40 MG/4 ML INJECTABLE VIAL ONE (16:45)
[2018-08-23 16:47] LABS: URINE APPEARANCE SLCLOUDY; URINE BILIRUBIN NEGATIVE (<2.0 mg/dL); URINE COLOR DKYELLOW; URINE GLUCOSE (UA) NEGATIVE (NEGATIVE); URINE KETONE NEGATIVE (NEGATIVE); URINE LEUK ESTERASE NEGATIVE (NEGATIVE); URINE NITRITE NEGATIVE (NEGATIVE); URINE PROTEIN 1+ (NEGATIVE); URINE UROBILINOGEN NEGATIVE mg/dL (0.2-1.0)
[2018-08-23 16:50] LABS: EPI CELLS RARE /HPF (FEW); URINE BACTERIA RARE /hpf (NONE SEEN); URINE MUCUS RARE
[2018-08-23 16:55] LABS: INR 1.67 (0.83-1.09); PROTHROMBIN TIME (PATIENT) 19.8 SEC (9.7-13.0)
[2018-08-23 16:57] LABS: ACTIVATED PTT 25.7 SECONDS (25.2-36.5)
[2018-08-23 17:00] LABS: ALBUMIN 3.9 g/dl (3.4-5.0); ALK PHOS 93 U/L (45-117); ANION GAP 9 MMOL/L (8-16); BILIRUBIN,TOTAL 0.9 mg/dL (0.2-1); BLOOD UREA NITROGEN 64 mg/dL (7-18); CALCIUM 8.7 mg/dL (8.5-10.1); CHLORIDE 116 mmol/L (98-107); CO2 16 mmol/L (21-32); CREATININE 2.6 mg/dL (0.55-1.3); GLUCOSE,RANDOM 109 mg/dL (74-106); N-TERMINAL BNP 12762.9 pg/ml (5-125); SGOT/AST 36 U/L (15-37); SGPT/ALT 22 U/L (13-61); SODIUM 141 mmol/L (136-145); TOT PROT 8.4 g/dl (6.4-8.2)
[2018-08-23 17:33] LABS: POTASSIUM 6.1 mmol/L (3.5-5.1)
--- NOTE | 2018-08-23 19:16 | HP ---
CHIEF COMPLAINT: lethargy, mental status changes PCP: None HISTORY OF PRESENT ILLNESS: 68M w/ pmhx of HTN, CAD s/p defibrillator placement, chronic Hep C, A. fib, DM, anemia was sent to the hospital from [facility] for lethargy and mental status changes found to have a glucose of 46. At [facility], pt was given orange juice and subsequently sent to the hospital. Per patient, he denies chest pain, sob, but admits to cough. During exam he was extremely agitated threatening to leave the hospital because "nothing was wrong." He also denies abdominal pain, urinary or bowel symptoms, nausea/vomiting. Of note, pt was recently admitted to the hospital on 08/16/18 after being found on the ground outside due to a syncopal episode due to alcohol intoxication. During this previous visit, pt was seen by cardio and was not found to have any acute cardiac condition. He was discharged to [facility] for detox and continued with rehab. ER course was notable for: (1) BNP ~12,700, Trop 0.34, BUN/Cr 64/2.6 (on 08/19: BUN/Cr 42/1.7) (2) Lasix 20 mg IVP given (3) CXR, Carotid duplex done Recent Travel: Denies PAST MEDICAL HISTORY: HTN CAD chronic Hep C A. fib DM anemia PAST SURGICAL HISTORY: Defibrillator placement (5 years ago) Social History: History taken per most recent admission 08/16/18 Smokin/2 PPD x10 years Alcohol: ~6 cans of beer every other day Drugs: Denies Family History: Denies Allergies No Known Allergies Allergy (Verified 08/18/18 19:54) HOME MEDICATIONS: Home Medications Medication Instructions Recorded Aspirin [ASA -] 81 mg PO DAILY tab.chew 08/18/18 Folic Acid - 1 mg PO DAILY tablet 08/18/18 Lisinopril [Prinivil] 20 mg PO DAILY tablet 08/18/18 Metoprolol Tartrate [Lopressor -] 25 mg PO BID tablet 08/18/18 Thiamine HCl [Vitamin B1 -] 100 mg PO DAILY tablet 08/18/18 Metformin HCl [Glucophage] 500 mg PO BID 08/19/18 REVIEW OF SYSTEMS As per HPI PHYSICAL EXAMINATION Vital Signs - 24 hr 08/23/18 08/23/18 15:00 15:57 Temperature 99.1 F Pulse Rate 102 H Pulse Rate [ 91 H Left Radial] Respiratory 31 H Rate Blood Pressure 144/112 H Blood Pressure 132/93 [Right Arm] O2 Sat by Pulse 100 Oximetry (%) GENERAL: A&O x2. Agitated, uncooperative. HEENT: AT/NC. EOMI. Dry mucus membranes. NECK: Significant pulsating R sided JVD. LUNGS: Bibasilar crackles. Symmetric chest rise. HEART: Severe TR. ABDOMEN: Soft NT/ND. +umbilical hernia, reducible, non-tender. 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) CBCD WBC 10.4 K/mm3 (4.0-10.0) H 08/23/18 15:42 RBC 3.02 M/mm3 (4.00-5.60) L 08/23/18 15:42 Hgb 8.7 GM/dL (11.7-16.9) L 08/23/18 15:42 Hct 26.8 % (35.4-49) L 08/23/18 15:42 MCV 88.7 fl (80-96) 08/23/18 15:42 MCHC 32.4 g/dl (32.0-35.9) 08/23/18 15:42 RDW 18.3 % (11.9-15.9) H 08/23/18 15:42 Plt Count 162 K/MM3 (134-434) D 08/23/18 15:42 MPV 8.7 fl (7.5-11.1) 08/23/18 15:42 CMP Sodium 141 mmol/L (136-145) 08/23/18 15:42 Potassium 6.1 mmol/L (3.5-5.1) H* 08/23/18 15:42 Chloride 116 mmol/L (98-107) H 08/23/18 15:42 Carbon Dioxide 16 mmol/L (21-32) L 08/23/18 15:42 Anion Gap 9 MMOL/L (8-16) 08/23/18 15:42 BUN 64 mg/dL (7-18) H 08/23/18 15:42 Creatinine 2.6 mg/dL (0.55-1.3) H 08/23/18 15:42 Creat Clearance w eGFR 24.53 (>60) 08/23/18 15:42 Calcium 8.7 mg/dL (8.5-10.1) 08/23/18 15:42 Total Bilirubin 0.9 mg/dL (0.2-1) 08/23/18 15:42 AST 36 U/L (15-37) 08/23/18 15:42 ALT 22 U/L (13-61) 08/23/18 15:42 Alkaline Phosphatase 93 U/L (45-117) 08/23/18 15:42 Total Protein 8.4 g/dl (6.4-8.2) H 08/23/18 15:42 Albumin 3.9 g/dl (3.4-5.0) 08/23/18 15:42 CONSULTS: Cardio- Dr. German IMAGING: * ECHO (08/18/18): LV severely dilated. EF = 30%. Severe global hypokinesis of the LV. LA severely dilated. RA severely dilated. MV normal, mild MR. Severe TR. Mod aortic sclerosis. Pulmonic valve grossly normal. No pericardial effusion. ASSESSMENT/PLAN: 68M w/ pmhx of HTN, CAD s/p defibrillator placement, chronic Hep C, A. fib, DM, anemia was sent to the hospital from [facility] for lethargy and mental status admitted for acute CHF exacerbation. #Hypoglycemia; 2/2 poor PO intake or malnutrition -Glu now 109, improved. #likely Acute systolic CHF exacerbation; On exam, pt had bibasilar crackles, R JVD, elevated BNP, 1+ LE edema b/l -Lasix 20 mg IVP given -Cont home med: Metoprolol 25 mg PO BID -Hold ACEi due to worsening renal fxn -strict I/Os -daily weights -recheck BMP in AM; If Cr improves, cont Lasix; otherwise worsening renal fxn would likely indicate sign of volume depletion. -Echo noted above done on 08/18/18 -Carotid duplex ordered -Cardio consult ordered #NAS; may be due to prerenal hypoperfusion 2/2 heart failure -repeat BMP in AM, monitor while on diuretic -renal U/S -hold Lisinopril #Hx of alcohol abuse -drug cessation counseling Cont home meds: -Thiamine 100 mg PO QD -Folate 1 mg PO QD #DM -BGMs ACHS -ISS ACHS #HTN -Hold home med Lisinopril due to worsening renal fxn -Cont Metoprolol #Prophylaxis -Heparin 5000U SQ TID #FEN -no IVf needed -recheck renal fxn in AM -diabetic/sodium-controlled diet dispo -admit to tele Visit type - Emergency Visit Emergency Visit: Yes ED Registration Date: 08/23/18 Care time: The patient presented to the Emergency Department on the above date and was hospitalized for further evaluation of their emergent condition. - New Patient This patient is new to me today: Yes Date on this admission: 08/24/18 - Critical Care Critical Care patient: No
--- NOTE | 2018-08-23 19:25 | PN ---
Teaching Attending Note Name of Resident: Joaquina Donohue ATTENDING PHYSICIAN STATEMENT I saw and evaluated the patient. I reviewed the resident's note and discussed the case with the resident. I agree with the resident's findings and plan as documented. SUBJECTIVE: CC: sent form [facility] for AMS. HPI 68 y/o man with h/o alcohol abuse, HTn, S heart failure, s/p AICD, Hep C, DM , and recent admission fro alcohol intoxication and demand ischemia discharged to [facility] on 08/18 , who was sent form [facility] for AMS . he was at [facility] when staff noticed AMS and was found with sugar of 46. OJ was given and patient mental status improved . He is diabetic andnot on insulin. they also reported worsening sOB while in [facility]. in ER he was given lasix , and blood work was done to reveal NAS and hemolysed sample ( K 6.1 ). repeat sent to me he denies CP or SOB. does not participate in providing good history OBJECTIVE: AND , sleeping but woke up for mw. knows location and age , thinks it is 2016. HEENT: slightly dry MM. no facial droop. EOMI, round equal pupils. CV : RRR, 3/6 Sm at LLSB. R JVD ( large ) Lungs: bibasilar crackles Ext : 1+ pitting edema Abd: umbilical hernia , reducible . NL BS . NT neuro : he became agitated towards the end of the exam and tried to get out of bed ASSESSMENT AND PLAN: 68 y/o man with h/o alcohol abuse, HTn, S heart failure, s/p AICD, Hep C, DM , and recent admission fro alcohol intoxication and demand ischemia discharged to [facility] on 08/18 , who was sent form [facility] for AMS . he was found to have hypoglycemia, and NAS. 1- Hypoglycemia: ? poor po intake. not on insulin - sugar improved . monitor 2- Possible Acute systolic heart failure exacerbation. with crackles , JVD, elevated BNP, and LE edema with SOB and NAS - no SOB s/p 20 of IV lasix . - will assess volume status in am and also renal function. if stable or improving , will continue diuresis . if renal function is worse might hold off - card consult - echo 08/18 reviewed. severe TR and severely reduced EF - tele - cont metorpolol and hold lisinopril 3- NAS : could be prerenal form hypoperfusion in settingof heart failure. - monitor with diuresis - renal US - hold Lisinopril 4- Alcohol abuse. finished detox monitor . give ativan if needed for agitation dispo : HLOC
[2018-08-23 20:16] LABS: ANION GAP 7 MMOL/L (8-16); BLOOD UREA NITROGEN 64 mg/dL (7-18); CHLORIDE 114 mmol/L (98-107); CO2 20 mmol/L (21-32); CREATININE 2.7 mg/dL (0.55-1.3); GLUCOSE,RANDOM 107 mg/dL (74-106); POTASSIUM 5.4 mmol/L (3.5-5.1); SODIUM 141 mmol/L (136-145)
[2018-08-23 20:17] LABS: CALCIUM 8.7 mg/dL (8.5-10.1)
[2018-08-23] MEDS ORDERED: ASPIRIN 81 MG CHEWABLE TABLETS ONE (21:38)
[2018-08-23] MEDS ORDERED: THIAMINE HCL 100 MG TABLET (FP) ONE (21:39)
[2018-08-23] MEDS ORDERED: METOPROLOL TARTRATE 25 MG TABLET (FP) ONE (21:39)
[2018-08-23] MEDS ORDERED: FOLIC ACID 1 MG TABLET (FP) ONE (21:39)
[2018-08-23] MEDS ORDERED: HEPARIN NA (PORCINE) 5,000 UNITS/ML 1ML VIAL ONE (21:39)
[2018-08-23] MEDS ORDERED: HEMOQUE TEST 1 EACH EACH ONE (21:46)
[2018-08-23] MEDS: FOLIC ACID 1 MG TABLET (FP) PO SCH (22:06)
[2018-08-23] MEDS: METOPROLOL TARTRATE 25 MG TABLET (FP) PO SCH (22:06)
[2018-08-23] MEDS: THIAMINE HCL 100 MG TABLET (FP) PO SCH (22:06)
[2018-08-23] MEDS: ASPIRIN 81 MG CHEWABLE TABLETS PO SCH (22:06)
[2018-08-23] MEDS: HEPARIN NA (PORCINE) 5,000 UNITS/ML 1ML VIAL SQ SCH (22:06)
[2018-08-24] MEDS ORDERED: HEPARIN NA (PORCINE) 5,000 UNITS/ML 1ML VIAL ONE (05:42)
[2018-08-24] MEDS: HEPARIN NA (PORCINE) 5,000 UNITS/ML 1ML VIAL SQ SCH ×3 (05:42→21:25)
[2018-08-24 07:57] LABS: ALBUMIN 3.8 g/dl (3.4-5.0); ALK PHOS 93 U/L (45-117); ANION GAP 11 MMOL/L (8-16); BILIRUBIN,TOTAL 1.4 mg/dL (0.2-1); BLOOD UREA NITROGEN 68 mg/dL (7-18); CALCIUM 9.1 mg/dL (8.5-10.1); CHLORIDE 112 mmol/L (98-107); CO2 17 mmol/L (21-32); GLUCOSE,RANDOM 51 mg/dL (74-106); MAGNESIUM 1.9 mg/dL (1.8-2.4); SGOT/AST 60 U/L (15-37); SGPT/ALT 33 U/L (13-61); SODIUM 140 mmol/L (136-145); TOT PROT 8.8 g/dl (6.4-8.2)
[2018-08-24 08:07] LABS: BASO % 0.8 % (0-2.0); EOS % 0.8 % (0-4.5); HEMATOCRIT 28.9 % (35.4-49); HEMOGLOBIN 9.1 GM/dL (11.7-16.9); LYMPH % 9.1 % (8-40); MCH 28.5 pg (25.7-33.7); MCHC 31.7 g/dl (32.0-35.9); MEAN CELL VOLUME 89.9 fl (80-96); MEAN PLT VOLUME 9.3 fl (7.5-11.1); MONO % 16.8 % (3.8-10.2); NEUT % 72.5 % (42.8-82.8); PLATELET COUNT 178 K/MM3 (134-434); RDW 18.6 % (11.9-15.9); WHITE BLOOD COUNT 8.4 K/mm3 (4.0-10.0)
[2018-08-24 08:08] LABS: POTASSIUM 6.3 mmol/L (3.5-5.1)
[2018-08-24 08:12] LABS: RBC 3.21 M/mm3 (4.00-5.60)
[2018-08-24] MEDS ORDERED: CALCIUM GLUCONATE 10% - 1,000 MG/10 ML VIAL IVPUSH ONE (08:14)
[2018-08-24] MEDS ORDERED: SODIUM POLYSTYRENE SULFONATE 15 GM/60 ML BOTTLE PO ONE (08:15)
[2018-08-24] MEDS ORDERED: ALBUTEROL SO4 0.5 % INH SOLN 2.5 MG/0.5 ML VIAL.NEB. NEB ONE (08:15)
[2018-08-24] MEDS ORDERED: ALBUTEROL SO4 2.5/IPRATROPIUM 0.5 INH SOL 3 ML VIAL.NEB. NEB ONE (08:25)
[2018-08-24] MEDS ORDERED: DEXTROSE 50%-WATER - 25 GM/50 ML VIAL ONE (08:25)
[2018-08-24] MEDS ORDERED: ALBUTEROL SO4 0.083% IH SOL 2.5 MG/3 ML VIAL.NEB. NEB ONE (08:25)
[2018-08-24] MEDS ORDERED: CALCIUM CHLORIDE 1 GM/10 ML *DISP.SYRIN ONE (08:26)
[2018-08-24] MEDS ORDERED: DEXTROSE 50%-WATER - 25 GM/50 ML VIAL IVPUSH ONE (08:27)
[2018-08-24] MEDS ORDERED: dilTIAZem HCL 50 MG/10 ML - 10 ML VIAL IVPUSH ONE ×2 (08:33)
[2018-08-24] MEDS ORDERED: RAPID SEQUENCE INTUBATION KIT NR ONE (08:36)
[2018-08-24] MEDS ORDERED: NALOXONE HCL 0.4 MG/ML VIAL ONE (08:37)
[2018-08-24] MEDS ORDERED: PROPOFOL 1,000,000 MCG/100 ML VIAL ONE (08:51)
[2018-08-24 08:55] LABS: ARTERIAL BLD GAS O2 SATURATION 98.6 % (90-98.9); ARTERIAL BLOOD GAS BASE EXCESS -15.4 meq/l (-2-2)
[2018-08-24 08:56] LABS: ALLENS TEST POSITIVE
--- NOTE | 2018-08-24 08:57 | PN ---
Progress Note (short form) - Note Progress Note: Subjective: unable to obtain hx. called by ER MD for patient unresponsive. intubation was done. Objective: Vital Signs: Last Vital Signs Temp Pulse Resp BP Pulse Ox 98.1 F 119 H 20 166/90 97 08/24/18 08:55 08/24/18 09:25 08/24/18 08:55 08/24/18 09:25 08/24/18 08:55 Laboratory Results - last 24 hr 08/23/18 08/23/18 08/23/18 14:41 15:42 15:42 WBC 10.4 H RBC 3.02 L Hgb 8.7 L Hct 26.8 L MCV 88.7 MCH 28.7 MCHC 32.4 RDW 18.3 H Plt Count 162 D MPV 8.7 Absolute Neuts (auto) 9.2 H Neutrophils % 88.1 H D Lymphocytes % 3.4 L D Monocytes % 8.2 Eosinophils % 0.1 D Basophils % 0.2 Nucleated RBC % 0 PT with INR INR PTT (Actin FS) Anticoagulation Therapy Puncture Site ABG pH ABG pCO2 at Pt Temp ABG pO2 at Pt Temp ABG HCO3 ABG O2 Sat (Measured) ABG O2 Content ABG Base Excess Aiden Test O2 Delivery Device Oxygen Flow Rate Vent Mode Vent Rate Mechanical Rate Pressure Support Vent Sodium 141 Potassium 6.1 H* Chloride 116 H Carbon Dioxide 16 L Anion Gap 9 BUN 64 H Creatinine 2.6 H Creat Clearance w eGFR 24.53 POC Glucometer 120.76678 Random Glucose 109 H Calcium 8.7 Magnesium Total Bilirubin 0.9 AST 36 ALT 22 Alkaline Phosphatase 93 Creatine Kinase 66 Troponin I 0.34 H B-Natriuretic Peptide 25336.9 H Total Protein 8.4 H Albumin 3.9 Urine Color Urine Appearance Urine pH Ur Specific [place] Urine Protein Urine Glucose (UA) Urine Ketones Urine Blood Urine Nitrite Urine Bilirubin Urine Urobilinogen Ur Leukocyte Esterase Urine WBC (Auto) Urine RBC (Auto) Ur Epithelial Cells Urine Bacteria Urine Mucus 08/23/18 08/23/18 08/23/18 16:22 16:42 18:18 WBC RBC Hgb Hct MCV MCH MCHC RDW Plt Count MPV Absolute Neuts (auto) Neutrophils % Lymphocytes % Monocytes % Eosinophils % Basophils % Nucleated RBC % PT with INR 19.80 H INR 1.67 H PTT (Actin FS) 25.7 Anticoagulation Therapy Puncture Site ABG pH ABG pCO2 at Pt Temp ABG pO2 at Pt Temp ABG HCO3 ABG O2 Sat (Measured) ABG O2 Content ABG Base Excess Aiden Test O2 Delivery Device Oxygen Flow Rate Vent Mode Vent Rate Mechanical Rate Pressure Support Vent Sodium 141 Potassium 5.4 H Chloride 114 H Carbon Dioxide 20 L Anion Gap 7 L BUN 64 H Creatinine 2.7 H Creat Clearance w eGFR 23.48 POC Glucometer Random Glucose 107 H Calcium 8.7 Magnesium Total Bilirubin AST ALT Alkaline Phosphatase Creatine Kinase Troponin I B-Natriuretic Peptide Total Protein Albumin Urine Color Dkyellow Urine Appearance Slcloudy Urine pH 5.0 Ur Specific [place] 1.015 Urine Protein 1+ H Urine Glucose (UA) Negative Urine Ketones Negative Urine Blood Negative Urine Nitrite Negative Urine Bilirubin Negative Urine Urobilinogen Negative Ur Leukocyte Esterase Negative Urine WBC (Auto) None Urine RBC (Auto) 6 Ur Epithelial Cells Rare Urine Bacteria Rare Urine Mucus Rare 08/23/18 08/24/18 08/24/18 21:30 05:30 05:30 WBC 8.4 RBC 3.21 L Hgb 9.1 L Hct 28.9 L MCV 89.9 MCH 28.5 MCHC 31.7 L RDW 18.6 H Plt Count 178 MPV 9.3 Absolute Neuts (auto) 6.0 Neutrophils % 72.5 Lymphocytes % 9.1 D Monocytes % 16.8 H D Eosinophils % 0.8 D Basophils % 0.8 D Nucleated RBC % 0 PT with INR INR PTT (Actin FS) Anticoagulation Therapy Puncture Site ABG pH ABG pCO2 at Pt Temp ABG pO2 at Pt Temp ABG HCO3 ABG O2 Sat (Measured) ABG O2 Content ABG Base Excess Aiden Test O2 Delivery Device Oxygen Flow Rate Vent Mode Vent Rate Mechanical Rate Pressure Support Vent Sodium 140 Potassium 6.3 H* Chloride 112 H Carbon Dioxide 17 L Anion Gap 11 BUN 68 H Creatinine 3.0 H Creat Clearance w eGFR 20.79 POC Glucometer Random Glucose 51 L Calcium 9.1 Magnesium 1.9 Total Bilirubin 1.4 H AST 60 H ALT 33 Alkaline Phosphatase 93 Creatine Kinase 63 Troponin I 0.31 H 0.34 H B-Natriuretic Peptide Total Protein 8.8 H Albumin 3.8 Urine Color Urine Appearance Urine pH Ur Specific [place] Urine Protein Urine Glucose (UA) Urine Ketones Urine Blood Urine Nitrite Urine Bilirubin Urine Urobilinogen Ur Leukocyte Esterase Urine WBC (Auto) Urine RBC (Auto) Ur Epithelial Cells Urine Bacteria Urine Mucus 08/24/18 08:45 WBC RBC Hgb Hct MCV MCH MCHC RDW Plt Count MPV Absolute Neuts (auto) Neutrophils % Lymphocytes % Monocytes % Eosinophils % Basophils % Nucleated RBC % PT with INR INR PTT (Actin FS) Anticoagulation Therapy No Result Required. Puncture Site Left radial ABG pH 7.07 L* ABG pCO2 at Pt Temp 50.0 H ABG pO2 at Pt Temp 204.0 H* ABG HCO3 13.8 L* ABG O2 Sat (Measured) 98.6 ABG O2 Content 13.0 L ABG Base Excess -15.4 L* Aiden Test Positive O2 Delivery Device No Result Required. Oxygen Flow Rate Yes Vent Mode No Result Required. Vent Rate No Result Required. Mechanical Rate No Result Required. Pressure Support Vent No Result Required. Sodium Potassium Chloride Carbon Dioxide Anion Gap BUN Creatinine Creat Clearance w eGFR POC Glucometer Random Glucose Calcium Magnesium Total Bilirubin AST ALT Alkaline Phosphatase Creatine Kinase Troponin I B-Natriuretic Peptide Total Protein Albumin Urine Color Urine Appearance Urine pH Ur Specific [place] Urine Protein Urine Glucose (UA) Urine Ketones Urine Blood Urine Nitrite Urine Bilirubin Urine Urobilinogen Ur Leukocyte Esterase Urine WBC (Auto) Urine RBC (Auto) Ur Epithelial Cells Urine Bacteria Urine Mucus Physical Exam: unresponsive , 1mm pupils, CV : RRR, 3/6 SM at LLSB.JVD Lungs: course breath sounds anteriorly Ext: 1+ pitting edema ASSESSMENT AND PLAN: 68 y/o man with h/o alcohol abuse, HTn, S heart failure, s/p AICD, Hep C, DM , and recent admission fro alcohol intoxication and demand ischemia discharged to [facility] on 08/18 , who was sent form [facility] for AMS . he was found to have hypoglycemia, and NAS. 1- Hypoglycemia: unclear etiology. ? poor po intake. start D5 2- Acute systolic heart failure exacerbation. - will place a rosa in and start lasix IV - cont BB through NG - card consult pending 3- Acute hypercapnic resp failure. due to heart failure. - intubation . - treat heart failure 4- hyperkalemia: due to renal failure. - gave ca, Nebs . kayeksaylate . - called Dr. bailey for possible HD 5- NAS : likely prerenal from heart failure. - diuresis and possible HD - hold lisinopril 6- Narrow complex tachycardia. per previous card notes, has questionable history of A fib. EKG reviewed, now in narrow complex tachy likely a fib. gave 20 mg of IV cardizem cont with po BB through NG. if needed can start cardizem gtt. Not on AC before , that's likely due to non compliance and alcohol abuse and risk for bleed in this situation 7- Alcohol abuse. finished detox 8- unresponsiveness: likely resp failure. CT scan when stable dispo : transfer to ICu. d/w [facility] [employer] Miguel Visit type - Emergency Visit Emergency Visit: Yes ED Registration Date: 08/23/18 Care time: The patient presented to the Emergency Department on the above date and was hospitalized for further evaluation of their emergent condition. - New Patient This patient is new to me today: No - Critical Care Critical Care patient: Yes Total Critical Care Time (in minutes): 40 Critical Care Statement: The care of this patient involved high complexity decision making to prevent further life threatening deterioration of the patient 's condition and/or to evaluate & treat vital organ system(s) failure or risk of failure.
[2018-08-24 08:58] LABS: ARTERIAL BLOOD GAS pH 7.07 (7.35-7.45)
[2018-08-24] MEDS ORDERED: ROCURONIUM BROMIDE 50 MG/5 ML VIAL IV ONE (08:59)
[2018-08-24] MEDS ORDERED: SODIUM CHLORIDE 0.9% 1000 ML INFUS.BAG IV ONE (08:59)
[2018-08-24] MEDS ORDERED: ETOMIDATE 20 MG/10 ML AMPUL IVPUSH ONE (08:59)
[2018-08-24] MEDS ORDERED: DEXTROSE 5%-0.45% SALINE 1,000 ML IV SCH (09:00)
--- NOTE | 2018-08-24 09:03 | PDOC ---
*Physical Exam - Vital Signs Last Vital Signs Temp Pulse Resp BP Pulse Ox 99.1 F 57 L 31 H 140/83 98 08/23/18 15:00 08/24/18 07:00 08/23/18 15:00 08/24/18 07:00 08/24/18 07:00 ED Treatment Course - LABORATORY CBC & Chemistry Diagram: 08/24/18 05:30 08/24/18 12:30 - ADDITIONAL ORDERS Additional order review: 08/23/18 08/23/18 15:42 14:41 RBC 3.02 L MCV 88.7 MCHC 32.4 RDW 18.3 H MPV 8.7 Neutrophils % 88.1 H D Lymphocytes % 3.4 L D Monocytes % 8.2 Eosinophils % 0.1 D Basophils % 0.2 POC Glucometer 120.92171 - Medications Given in the ED: ED Medications Discontinued Medications Generic Name Dose Route Start Last Admin Trade Name Freq PRN Reason Stop Dose Admin Furosemide 20 mg 08/23/18 16:27 08/23/18 16:44 Lasix Injection - IVPUSH 08/23/18 16:28 20 mg ONCE ONE Administration Medical Decision Making - Medical Decision Making Patient desatted, became unresponsive, we had concerns for airway protection. Intubated patient. *DC/Admit/Observation/Transfer Diagnosis at time of Disposition: NAS (acute kidney injury) CHF (congestive heart failure) Qualifiers: Heart failure type: unspecified Heart failure chronicity: unspecified Qualified Code(s): I50.9 - Heart failure, unspecified - Discharge Dispostion Condition at time of disposition: Stable - Referrals - Patient Instructions - Post Discharge Activity Procedures - Intubation Time of Intubation: 09:00 Intubation Method: orotracheal Blade used: Mac Tube Size (Fr): 7.5 Medications: Etomidate Tube position @ lip (cm): 24 Tube position confirmed by: Direct visualization, CO2 detector, Chest x-ray, Breath sounds Breath Sounds after Intubation: equal Intubation Complications: no complications Post Intubation Xray: Yes
[2018-08-24] MEDS ORDERED: DILTIAZEM INJECTION 125 MG in SODIUM CHLORIDE 100 ML IVPB SCH (09:15)
[2018-08-24] MEDS: PROPOFOL 1,000,000 MCG/100 ML VIAL IVPB SCH ×2 (09:17→21:25)
--- NOTE | 2018-08-24 10:32 | PROC ---
Intubation - Intubation Reason for Intubation: Respiratory Failure, Airway Protection Time of Intubation: 10:30 Intubation Method: orotracheal Blade used: Mac Tube Size (cm): 8.0 Tube position @ lip (cm): 22 Tube position confirmed by: Direct visualization, Chest x-ray, Breath sounds Breath Sounds after Intubation: left greater than right Post Intubation Xray: Yes (pending) Remarks: Called to bedside, SPO2 60% on fio2 100%. Poor bilateral BS. Tube likely dislodged during turning. Pt sedated with propofol. Reintubated via DL, grade 1 view MAC IV blade, atraumatic intubation. +BS, cxr ordered. Spo2 99%.
[2018-08-24] MEDS ORDERED: FUROSEMIDE 40 MG/4 ML INJECTABLE VIAL IVPUSH ONE (10:53)
--- NOTE | 2018-08-24 11:00 | CONSULT ---
Consult - text type - Consultation Consultation Note: PULM/CCM Pt seen and examined in ICU Reason for ICU admission: hypercapneic resp failure, metabolic acidosis, CHF exacerbation CC: altered mental status HPI: Hx obtained from medical record 2/2 pt clinical condition. Briefly Mr Salinas is a 68 y/o man with h/o alcohol abuse, HTn, systolic heart failure, s/p AICD, Hep C, DM , with recent admission for alcohol intoxication and demand ischemia who was discharged to [facility] on 08/18, now returning to ED with AMS , and hypoglycemia (BGL 46, responded to juice). In ED pt was normotensive, afebrile, non toxic appearing. He was noted to have NAS and was given lasix for pulm congestion and bibasilar crackles. He was to be admitted but remained in ED. THis AM pt was noted to be obtunded and with poor resp drive. ABG showed mixed metabolic and resp acidosis (7.07/50). He had K of 6, Cr of 2.7, BNP of 12K. EKG with peaked Twave, qrs 126. He was given narcan without effect and subsequently intubated. CXR showed some pulm edema. He did not have rosa placed due to difficulty, potassium was medically managed with calcium, EKG with improved Twave and QRS to 110. Pt transferred to ICU for further management. PMHX: HTN DM Afib CAD s/p AICD Anemia Alcohol abuse disorder PSHX: AICD unk further Social History Smoking history Current every day smoker Have you smoked in the past 12 Yes months Hx Alcohol Use Yes Home Medications Medication Instructions Recorded Aspirin [ASA -] 81 mg PO DAILY tab.chew 08/18/18 Folic Acid - 1 mg PO DAILY tablet 08/18/18 Lisinopril [Prinivil] 20 mg PO DAILY tablet 08/18/18 Metoprolol Tartrate [Lopressor -] 25 mg PO BID tablet 08/18/18 Thiamine HCl [Vitamin B1 -] 100 mg PO DAILY tablet 08/18/18 Metformin HCl [Glucophage] 500 mg PO BID 08/19/18 Active Medications Albuterol Sulfate (Ventolin 0.5% -) 1 amp NEB ONCE ONE Stop: 08/24/18 08:16 Last Admin: 08/24/18 08:15 Dose: 1 amp Aspirin (Asa -) 81 mg PO DAILY [facility] Last Admin: 08/23/18 22:06 Dose: 81 mg Calcium Gluconate (Calcium Gluconate 10% -) 1,000 mg IVPUSH ONCE ONE Stop: 08/24/18 08:15 Last Admin: 08/24/18 08:15 Dose: 1,000 mg Diltiazem HCl (Cardizem Injection -) 20 mg IVPUSH ONCE ONE Stop: 08/24/18 08:34 Last Admin: 08/24/18 09:02 Dose: Not Given Fentanyl (Sublimaze Injection -) 100 mcg IVPUSH ONCE ONE Stop: 08/24/18 10:28 Folic Acid (Folic Acid -) 1 mg PO DAILY [facility] Last Admin: 08/23/18 22:06 Dose: 1 mg Furosemide (Lasix Injection -) 60 mg IVPUSH ONCE ONE Stop: 08/24/18 10:54 Heparin Sodium (Porcine) (Heparin -) 5,000 unit SQ TID [facility] Last Admin: 08/24/18 05:42 Dose: 5,000 unit Dextrose/Sodium Chloride (D5-1/2ns -) 1,000 mls @ 42 mls/hr IV ASDIR [facility] Propofol (Diprivan -) 1,000,000 mcg in 100 mls @ 3.742 mls/hr IVPB TITR [facility]; Protocol Last Admin: 08/24/18 09:17 Dose: 6.68 mcg/kg/min, 5 mls/hr Diltiazem HCl 125 mg/ Sodium (Chloride) 125 mls @ 5 mls/hr IVPB TITR [facility]; Protocol Last Admin: 08/24/18 09:25 Dose: 5 mg/hr, 5 mls/hr Fentanyl 500 mcg/ Dextrose 100 mls @ 10 mls/hr IVPB TITR [facility] Metoprolol Tartrate (Lopressor -) 25 mg PO BID [facility] Last Admin: 08/23/18 22:06 Dose: 25 mg Sodium Polystyrene Sulfonate (Kayexalate -) 15 gm PO ONCE ONE Stop: 08/24/18 08:16 Last Admin: 08/24/18 08:15 Dose: 15 gm Thiamine HCl (Vitamin B1 -) 100 mg PO DAILY [facility] Last Admin: 08/23/18 22:06 Dose: 100 mg ROS: unable due to pt clinical condition PE: GEN: intubated sedated HEENT: PERRL, neck supple, +JVD, no LAD PULM: coarse crackles bilaterally CV: 3/6 MICAH at LSB, irreg, sinus with pAC on monitor ABD: soft, NT, ND EXT: trace edema, cool ext, + pulses Neuro: sedated, withdrawals bilaterally to noxious stimuli Vital Signs Temp 98.1 F 08/24/18 08:55 Pulse 119 H 08/24/18 09:25 Resp 20 08/24/18 08:55 BP 166/90 08/24/18 09:25 Pulse Ox 97 08/24/18 08:55 Intake & Output 08/23/18 08/23/18 08/24/18 11:59 23:59 11:59 Output Total 200 Balance -200 Weight 124.738 kg Output: Urine 200 Straight Cath 200 Other: Height 6 ft Body Mass Index (BMI) 37.3 Weight Measurement Method Estimated by Staff Laboratory Results - last 24 hr 08/23/18 08/23/18 08/23/18 14:41 15:42 15:42 WBC 10.4 H RBC 3.02 L Hgb 8.7 L Hct 26.8 L MCV 88.7 MCH 28.7 MCHC 32.4 RDW 18.3 H Plt Count 162 D MPV 8.7 Absolute Neuts (auto) 9.2 H Neutrophils % 88.1 H D Lymphocytes % 3.4 L D Monocytes % 8.2 Eosinophils % 0.1 D Basophils % 0.2 Nucleated RBC % 0 PT with INR INR PTT (Actin FS) Anticoagulation Therapy Puncture Site ABG pH ABG pCO2 at Pt Temp ABG pO2 at Pt Temp ABG HCO3 ABG O2 Sat (Measured) ABG O2 Content ABG Base Excess Aiden Test O2 Delivery Device Oxygen Flow Rate Vent Mode Vent Rate Mechanical Rate Pressure Support Vent Sodium 141 Potassium 6.1 H* Chloride 116 H Carbon Dioxide 16 L Anion Gap 9 BUN 64 H Creatinine 2.6 H Creat Clearance w eGFR 24.53 POC Glucometer 120.39576 Random Glucose 109 H Calcium 8.7 Magnesium Total Bilirubin 0.9 AST 36 ALT 22 Alkaline Phosphatase 93 Creatine Kinase 66 Troponin I 0.34 H B-Natriuretic Peptide 38419.9 H Total Protein 8.4 H Albumin 3.9 Urine Color Urine Appearance Urine pH Ur Specific [place] Urine Protein Urine Glucose (UA) Urine Ketones Urine Blood Urine Nitrite Urine Bilirubin Urine Urobilinogen Ur Leukocyte Esterase Urine WBC (Auto) Urine RBC (Auto) Ur Epithelial Cells Urine Bacteria Urine Mucus 08/23/18 08/23/18 08/23/18 16:22 16:42 18:18 WBC RBC Hgb Hct MCV MCH MCHC RDW Plt Count MPV Absolute Neuts (auto) Neutrophils % Lymphocytes % Monocytes % Eosinophils % Basophils % Nucleated RBC % PT with INR 19.80 H INR 1.67 H PTT (Actin FS) 25.7 Anticoagulation Therapy Puncture Site ABG pH ABG pCO2 at Pt Temp ABG pO2 at Pt Temp ABG HCO3 ABG O2 Sat (Measured) ABG O2 Content ABG Base Excess Aiden Test O2 Delivery Device Oxygen Flow Rate Vent Mode Vent Rate Mechanical Rate Pressure Support Vent Sodium 141 Potassium 5.4 H Chloride 114 H Carbon Dioxide 20 L Anion Gap 7 L BUN 64 H Creatinine 2.7 H Creat Clearance w eGFR 23.48 POC Glucometer Random Glucose 107 H Calcium 8.7 Magnesium Total Bilirubin AST ALT Alkaline Phosphatase Creatine Kinase Troponin I B-Natriuretic Peptide Total Protein Albumin Urine Color Dkyellow Urine Appearance Slcloudy Urine pH 5.0 Ur Specific [place] 1.015 Urine Protein 1+ H Urine Glucose (UA) Negative Urine Ketones Negative Urine Blood Negative Urine Nitrite Negative Urine Bilirubin Negative Urine Urobilinogen Negative Ur Leukocyte Esterase Negative Urine WBC (Auto) None Urine RBC (Auto) 6 Ur Epithelial Cells Rare Urine Bacteria Rare Urine Mucus Rare 08/23/18 08/24/18 08/24/18 21:30 05:30 05:30 WBC 8.4 RBC 3.21 L Hgb 9.1 L Hct 28.9 L MCV 89.9 MCH 28.5 MCHC 31.7 L RDW 18.6 H Plt Count 178 MPV 9.3 Absolute Neuts (auto) 6.0 Neutrophils % 72.5 Lymphocytes % 9.1 D Monocytes % 16.8 H D Eosinophils % 0.8 D Basophils % 0.8 D Nucleated RBC % 0 PT with INR INR PTT (Actin FS) Anticoagulation Therapy Puncture Site ABG pH ABG pCO2 at Pt Temp ABG pO2 at Pt Temp ABG HCO3 ABG O2 Sat (Measured) ABG O2 Content ABG Base Excess Aiden Test O2 Delivery Device Oxygen Flow Rate Vent Mode Vent Rate Mechanical Rate Pressure Support Vent Sodium 140 Potassium 6.3 H* Chloride 112 H Carbon Dioxide 17 L Anion Gap 11 BUN 68 H Creatinine 3.0 H Creat Clearance w eGFR 20.79 POC Glucometer Random Glucose 51 L Calcium 9.1 Magnesium 1.9 Total Bilirubin 1.4 H AST 60 H ALT 33 Alkaline Phosphatase 93 Creatine Kinase 63 Troponin I 0.31 H 0.34 H B-Natriuretic Peptide Total Protein 8.8 H Albumin 3.8 Urine Color Urine Appearance Urine pH Ur Specific [place] Urine Protein Urine Glucose (UA) Urine Ketones Urine Blood Urine Nitrite Urine Bilirubin Urine Urobilinogen Ur Leukocyte Esterase Urine WBC (Auto) Urine RBC (Auto) Ur Epithelial Cells Urine Bacteria Urine Mucus 08/24/18 08:45 WBC RBC Hgb Hct MCV MCH MCHC RDW Plt Count MPV Absolute Neuts (auto) Neutrophils % Lymphocytes % Monocytes % Eosinophils % Basophils % Nucleated RBC % PT with INR INR PTT (Actin FS) Anticoagulation Therapy No Result Required. Puncture Site Left radial ABG pH 7.07 L* ABG pCO2 at Pt Temp 50.0 H ABG pO2 at Pt Temp 204.0 H* ABG HCO3 13.8 L* ABG O2 Sat (Measured) 98.6 ABG O2 Content 13.0 L ABG Base Excess -15.4 L* Aiden Test Positive O2 Delivery Device No Result Required. Oxygen Flow Rate Yes Vent Mode No Result Required. Vent Rate No Result Required. Mechanical Rate No Result Required. Pressure Support Vent No Result Required. Sodium Potassium Chloride Carbon Dioxide Anion Gap BUN Creatinine Creat Clearance w eGFR POC Glucometer Random Glucose Calcium Magnesium Total Bilirubin AST ALT Alkaline Phosphatase Creatine Kinase Troponin I B-Natriuretic Peptide Total Protein Albumin Urine Color Urine Appearance Urine pH Ur Specific [place] Urine Protein Urine Glucose (UA) Urine Ketones Urine Blood Urine Nitrite Urine Bilirubin Urine Urobilinogen Ur Leukocyte Esterase Urine WBC (Auto) Urine RBC (Auto) Ur Epithelial Cells Urine Bacteria Urine Mucus EKG: reviewed: sinus with PAC, R axis, prolonged QRS and QTC (both improved), no acute ischemic changes CXR: reviewed, no dense infiltrate, no ptx, pulm vasc congestion A/ 68 yo man with DM, ETOH abuse disorder, HTN, CHF now with NAS, mixed metabolic and resp acidosis, resp failure. P/ -mechanical vent support, Low tidal volume vent strategies -diuresis, IV lasix once rosa inplaced -cards following, consider TTE once effectively diuresed -cont ASA: also BB, CCB for rate control -renal consult, may need iHD if not responsive to IV lasix -low threshold for abx, given severity of illness, but no sick prodrome so less likely -check lactate, may have metformin typeB acidosis -sedation holiday, if remains altered and is stable CTHead -thiamine, folate, MVI -SQH and Pepcid for DVT and GI prophy -full code [place] ACNP
--- NOTE | 2018-08-24 11:25 | EKG ---
Test Reason : Blood Pressure : / mmHG Vent. Rate : 157 BPM Atrial Rate : 166 BPM P-R Int : 000 ms QRS Dur : 128 ms QT Int : 318 ms P-R-T Axes : 000 198 042 degrees QTc Int : 514 ms WIDE QRS TACHYCARDIA RIGHT BUNDLE BRANCH BLOCK ABNORMAL ECG WHEN COMPARED WITH ECG OF 23-AUG-2018 15:21, WIDE QRS TACHYCARDIA HAS REPLACED ATRIAL FIBRILLATION VENT. RATE HAS INCREASED BY 65 BPM Confirmed by JIM ROSALES, SYDNI ([id number]) on 08/24/2018 11:25:20 AM Referred By: Confirmed By:SYDNI FERNANDEZ MD
--- NOTE | 2018-08-24 11:25 | EKG ---
Test Reason : Blood Pressure : / mmHG Vent. Rate : 083 BPM Atrial Rate : 083 BPM P-R Int : 192 ms QRS Dur : 110 ms QT Int : 414 ms P-R-T Axes : 069 123 004 degrees QTc Int : 486 ms SINUS RHYTHM WITH PREMATURE ATRIAL COMPLEXES RIGHT AXIS DEVIATION RIGHT VENTRICULAR HYPERTROPHY NONSPECIFIC ST ABNORMALITY PROLONGED QT ABNORMAL ECG WHEN COMPARED WITH ECG OF 24-AUG-2018 08:22, SINUS RHYTHM HAS REPLACED WIDE QRS TACHYCARDIA VENT. RATE HAS DECREASED BY 74 BPM Confirmed by SYDNI FERNANDEZ MD ([id number]) on 08/24/2018 11:25:24 AM Referred By: Mango BRODERICK Confirmed By:SYDNI FERNANDEZ MD
--- NOTE | 2018-08-24 11:26 | EKG ---
Test Reason : Blood Pressure : / mmHG Vent. Rate : 092 BPM Atrial Rate : 078 BPM P-R Int : 000 ms QRS Dur : 100 ms QT Int : 396 ms P-R-T Axes : 000 138 023 degrees QTc Int : 489 ms ATRIAL FIBRILLATION INDETERMINATE AXIS INCOMPLETE RIGHT BUNDLE BRANCH BLOCK RIGHT VENTRICULAR HYPERTROPHY PROLONGED QT ABNORMAL ECG WHEN COMPARED WITH ECG OF 15-AUG-2018 23:24, QRS AXIS SHIFTED RIGHT CRITERIA FOR SEPTAL INFARCT ARE NO LONGER PRESENT NONSPECIFIC T WAVE ABNORMALITY NO LONGER EVIDENT IN LATERAL LEADS Confirmed by SYDNI FERNANDEZ MD ([id number]) on 08/24/2018 11:26:39 AM Referred By: Confirmed By:SYDNI FERNANDEZ MD
[2018-08-24] MEDS ORDERED: SODIUM POLYSTYRENE SULFONATE 15 GM/60 ML BOTTLE NGT ONE (12:00)
[2018-08-24] MEDS: METOPROLOL TARTRATE 25 MG TABLET (FP) PO SCH ×2 (12:15→21:25)
[2018-08-24] MEDS ORDERED: fentaNYL CITRATE 250 MCG/5 ML VIAL ONE (12:21)
[2018-08-24 12:27] LABS: ARTERIAL BLOOD GAS BASE EXCESS -16.8 meq/l (-2-2); ARTERIAL BLOOD GAS PCO2 52.9 mmHg (35-45)
[2018-08-24] MEDS: FENTANYL INJECTION 500 MCG in DEXTROSE 5%-WATER - 90 ML IVPB SCH (12:27)
[2018-08-24 12:28] LABS: ALLENS TEST POSITIVE
[2018-08-24 12:29] LABS: ARTERIAL BLOOD GAS pH 7.03 (7.35-7.45)
[2018-08-24] MEDS: THIAMINE HCL 100 MG TABLET (FP) PO SCH (12:32)
[2018-08-24] MEDS: FOLIC ACID 1 MG TABLET (FP) PO SCH (12:32)
[2018-08-24] MEDS: ASPIRIN 81 MG CHEWABLE TABLETS PO SCH (12:32)
[2018-08-24] MEDS: PANTOPRAZOLE SODIUM 40 MG VIAL IVPUSH SCH (12:36)
[2018-08-24 13:39] LABS: ALBUMIN 3.6 g/dl (3.4-5.0); ALK PHOS 91 U/L (45-117); ANION GAP 15 MMOL/L (8-16); BILIRUBIN,TOTAL 1.4 mg/dL (0.2-1); BLOOD UREA NITROGEN 72 mg/dL (7-18); CHLORIDE 111 mmol/L (98-107); CO2 15 mmol/L (21-32); CREATININE 3.5 mg/dL (0.55-1.3); GLUCOSE,RANDOM 58 mg/dL (74-106); SGOT/AST 170 U/L (15-37); SGPT/ALT 71 U/L (13-61); SODIUM 141 mmol/L (136-145); TOT PROT 8.4 g/dl (6.4-8.2)
[2018-08-24 13:42] LABS: POTASSIUM 6.9 mmol/L (3.5-5.1)
--- NOTE | 2018-08-24 14:07 | CONSULT ---
Consult Consult Specialty:: Nephrology Reason for Consultation:: nas - History of Present Illness Chief Complaint: sent from [facility] for lethargy History of Present Illness: Pt is a 68 year old male with pmhx of HTN, DM, a-fib, CAD, AICD, anemai and etoh abuse who was sent in from [facility] for lethargy. He developed respiratory distress and was intubated. Pt is now in the ICU. He is unable to give history. I reviewed the chart and discussed the case with the [facility] and medical team. He was found to have worsening renal failure and acidosis so I was called to evaluate him. Pts potassium is also elevated. He is making urine but his renal function is worsening. He remain intubated in the ICU. He had complained of feeling tired yesterday. Pt also has metformin listed on his home meds. - History Source History Provided By: Medical Record - Past Medical History Cardio/Vascular: Yes: HTN Renal/: Yes: Renal Inusuff Endocrine: Yes: Diabetes Mellitus - Alcohol/Substance Use Hx Alcohol Use: Yes - Smoking History Smoking history: Current every day smoker Have you smoked in the past 12 months: Yes Aproximately how many cigarettes per day: 10 Home Medications - Allergies Allergies/Adverse Reactions: Allergies Allergy/AdvReac Type Severity Reaction Status Date / Time No Known Allergies Allergy Verified 08/18/18 19:54 - Home Medications Home Medications: Ambulatory Orders Aspirin [ASA -] 81 mg PO DAILY tab.chew 08/18/18 Folic Acid - 1 mg PO DAILY tablet 08/18/18 Lisinopril [Prinivil] 20 mg PO DAILY tablet 08/18/18 Metoprolol Tartrate [Lopressor -] 25 mg PO BID tablet 08/18/18 Thiamine HCl [Vitamin B1 -] 100 mg PO DAILY tablet 08/18/18 Metformin HCl [Glucophage] 500 mg PO BID 08/19/18 Family Disease History - Family Disease History Family History: Unable to Obtain Review of Systems Unable to obtain ROS, reason: pt intubated Physical Exam Vital Signs: Vital Signs Temperature 98.1 F 08/24/18 08:55 Pulse Rate 59 L 08/24/18 11:24 Respiratory Rate 24 H 08/24/18 13:57 Blood Pressure 138/97 08/24/18 11:24 O2 Sat by Pulse Oximetry (%) 100 08/24/18 13:57 Constitutional: Yes: Calm, Mild Distress Eyes: Yes: Conjunctiva Clear Cardiovascular: Yes: JVD, S1, S2 Respiratory: Yes: Mechanically Ventilated Gastrointestinal: Yes: Soft Renal/: Yes: Syed Present Musculoskeletal: Yes: Muscle Weakness Extremities: Yes: WNL Edema: Yes Edema: LUE: 1+, RUE: 1+, LLE: 1+, RLE: 1+ Integumentary: Yes: WNL Neurological: Yes: Lethargy Labs: CBC, BMP 08/24/18 05:30 08/24/18 12:30 Laboratory Tests 08/18/18 08/23/18 08/23/18 06:00 15:42 18:18 Creatinine 1.6 H 2.6 H 2.7 H Lactic Acid 08/24/18 08/24/18 08/24/18 05:30 12:30 13:00 Creatinine 3.0 H 3.5 H Lactic Acid 7.1 H* Imaging - Results Chest X-ray: Report Reviewed Problem List - Problems (1) NAS (acute kidney injury) Code(s): N17.9 - ACUTE KIDNEY FAILURE, UNSPECIFIED (2) CHF (congestive heart failure) Code(s): I50.9 - HEART FAILURE, UNSPECIFIED Qualifiers: Heart failure type: unspecified Heart failure chronicity: unspecified Qualified Code(s): I50.9 - Heart failure, unspecified (3) Alcohol dependence Code(s): F10.20 - ALCOHOL DEPENDENCE, UNCOMPLICATED Qualifiers: Substance use status: uncomplicated Qualified Code(s): F10.20 - Alcohol dependence, uncomplicated (4) Afib Code(s): I48.91 - UNSPECIFIED ATRIAL FIBRILLATION (5) Anemia Code(s): D64.9 - ANEMIA, UNSPECIFIED Qualifiers: Anemia type: iron deficiency (6) Chronic kidney disease Code(s): N18.9 - CHRONIC KIDNEY DISEASE, UNSPECIFIED Qualifiers: Chronic kidney disease stage: stage 2 (mild) Qualified Code(s): N18.2 - Chronic kidney disease, stage 2 (mild) (7) DM type 2 (diabetes mellitus, type 2) Code(s): E11.9 - TYPE 2 DIABETES MELLITUS WITHOUT COMPLICATIONS Qualifiers: Diabetes mellitus complication status: with unspecified complications (8) HTN (hypertension) Code(s): I10 - ESSENTIAL (PRIMARY) HYPERTENSION Qualifiers: Hypertension type: essential hypertension Qualified Code(s): I10 - Essential (primary) hypertension Assessment/Plan Current Medications Generic Name Dose Route Start Last Admin Trade Name Lalita PRN Reason Stop Dose Admin Aspirin 81 mg 08/23/18 19:15 08/24/18 12:32 Asa - PO 81 mg DAILY ALEAH Administration Folic Acid 1 mg 08/23/18 19:15 08/24/18 12:32 Folic Acid - PO 1 mg DAILY ALEAH Administration Heparin Sodium (Porcine) 5,000 unit 08/23/18 22:00 08/24/18 13:33 Heparin - SQ 5,000 unit TID ALEAH Administration Dextrose/Sodium Chloride 1,000 mls @ 42 mls/hr 08/24/18 09:00 08/24/18 12:01 D5-1/2ns - IV 42 mls/hr ASDIR ALEAH Administration Propofol 1,000,000 mcg in 100 mls @ 3.742 mls/hr 08/24/18 09:00 08/24/18 11: 55 Diprivan - IVPB 5 mcg/kg/min TITR ALEAH 3.742 mls/hr Titration Protocol 5 MCG/KG/MIN Diltiazem HCl 125 mg/ Sodium 125 mls @ 5 mls/hr 08/24/18 09:15 08/24/18 11:24 Chloride IVPB 0 mg/hr TITR ALEAH 0 mls/hr Titration Protocol 5 MG/HR Fentanyl 500 mcg/ Dextrose 100 mls @ 10 mls/hr 08/24/18 10:30 08/24/18 12:27 IVPB 50 mcg/hr TITR ALEAH 10 mls/hr Administration Protocol 50 MCG/HR Metoprolol Tartrate 25 mg 08/23/18 22:00 08/24/18 12:15 Lopressor - PO Not Given BID ALEAH Pantoprazole Sodium 40 mg 08/24/18 11:45 08/24/18 12:36 Protonix Iv IVPUSH 40 mg DAILY ALEAH Administration Sodium Bicarbonate 100 meq 08/24/18 13:45 Sodium Bicarbonate 8.4% - IVPUSH 08/24/18 13:46 ONCE ONE Thiamine HCl 100 mg 08/23/18 19:15 08/24/18 12:32 Vitamin B1 - PO 100 mg DAILY ALEAH Administration Impression 1. NAS 2. CKD 3. hyperkalemia 4. lactic acidosis 5. metformin use 6. etoh abuse 7. CHF 8. DM 9. a-fib 10. anemia Plan - pt is not responding to medical therapy and will need HD - unable to reach any family or friends - will need hd as a life saving measure, will sign 2 PC form - HD will help with acidosis and hyperkalemia - catheter to be placed by ICU - pt was also on metformin, which is now held and should not be restarted - monitor blood sugar - vent support - cont ICU care Dr Flores
[2018-08-24] MEDS ORDERED: SODIUM BICARBONATE 8.4% 50 MEQ/50 ML VIAL ONE (14:20)
[2018-08-24] MEDS ORDERED: PT OWN MED DRAWER 7, Y5N ONE (14:21)
[2018-08-24] MEDS ORDERED: SODIUM CHLORIDE 250 ML IV PRN (14:22)
[2018-08-24] MEDS ORDERED: SODIUM BICARBONATE 8.4% 50 MEQ/50 ML DISP.SYRIN IVPUSH ONE (15:00)
--- NOTE | 2018-08-24 15:17 | PROC ---
Central Line Insertion Indication: Other (hemodialysis) Risks and Benefits Explained: No (NO family or surrogate avail) Consent on Chart: No (Emergent, presumed consent) Central Line: Dialysis Cath, Dual Lumen Anesthesia: 1% Lidocaine Sterile Technique: Yes Ultrasound Guided Assistance: Yes Position: Right Femoral Sterile Dressing Applied: Yes Remarks: Pt with severe life threatening acidemia,hyperkalemia and rising Cr. He required emergent renal replacement. Only number in chart is a "friend Ale" and it is disconnected. Line placed under presumed consent. Using sterile technique and modified seldinger technique a 20cm dual lumen hemodialisis catheter was placed. There was dark red non pulsitile blood return x 2 ports, flushed with ease. Sewn in place. Dressing applied. LINE IS OK TO USE>
[2018-08-24 15:45] LABS: VENOUS PC02 40.8 mmHg (38-52); VENOUS PH 7.25 (7.32-7.42); VENOUS PO2 60.1 mmHg (28-48)
[2018-08-24] MEDS ORDERED: HEMOQUE TEST 1 EACH EACH ONE ×2 (19:57→21:29)
--- NOTE | 2018-08-24 20:52 | CON.CARD ---
Consult Consult Specialty:: Cardiology Referred by:: Hospitalist service Reason for Consultation:: Cardiac evaluation - History of Present Illness Chief Complaint: Respiratory failure requiring intubation History of Present Illness: Patient was seen this morning in ICU Patient is a 68 year old male with underlying history of CAD s/p ischemic cardiomyopathy, s/p ICD, chronic hepatitis C, possible history of AF and DM ( seen previously 08/16/18 with ETOH intoxication and syncope) presented this time with change in mental status and hypoglycemia (blood glucose of 46) which was repleted, initially awake, normotensive, afebrile and presumably non-toxic appearing. He presented with NAS and was given diuretic for pulmonary congestion. He was found obtunded this morning with acidosis, respiratory failure requiring intubation. He was admitted to ICU for further management and evaluation. PH was 7.07 with K of 6 and Cr 2.7 and elevated BNP. CXR revealed pulmonary congestion. Lactic acid was elevated at 7.1 and troponin at 0.34. Renal consultation was called and noted need for acute hemodialysis. - History Source History Provided By: Medical Record Limitations to Obtaining History: Intubated - Past Medical History Cardio/Vascular: Yes: AFIB, CAD, HTN, Other (ICD for ischemic cardiomyopathy) Hepatobiliary: Yes: Hepatitis C Renal/: Yes: Renal Inusuff Endocrine: Yes: Diabetes Mellitus - Past Surgical History Past Surgical History: Yes: AICD - Alcohol/Substance Use Hx Alcohol Use: Yes - Smoking History Smoking history: Current every day smoker Have you smoked in the past 12 months: Yes Aproximately how many cigarettes per day: 10 Home Medications - Allergies Allergies/Adverse Reactions: Allergies Allergy/AdvReac Type Severity Reaction Status Date / Time No Known Allergies Allergy Verified 08/18/18 19:54 - Home Medications Home Medications: Ambulatory Orders Aspirin [ASA -] 81 mg PO DAILY tab.chew 08/18/18 Folic Acid - 1 mg PO DAILY tablet 08/18/18 Lisinopril [Prinivil] 20 mg PO DAILY tablet 08/18/18 Metoprolol Tartrate [Lopressor -] 25 mg PO BID tablet 08/18/18 Thiamine HCl [Vitamin B1 -] 100 mg PO DAILY tablet 08/18/18 Metformin HCl [Glucophage] 500 mg PO BID 08/19/18 Family Disease History - Family Disease History Family History: Denies Review of Systems Unable to obtain ROS, reason: Unable to obtain Vital Signs: Vital Signs Temperature 97.8 F 08/24/18 16:05 Pulse Rate 75 08/24/18 20:40 Respiratory Rate 24 H 08/24/18 20:41 Blood Pressure 127/77 08/24/18 20:40 O2 Sat by Pulse Oximetry (%) 100 08/24/18 13:57 Respiratory: Yes: Diminished, Intubated, Mechanically Ventilated Gastrointestinal: Yes: Normal Bowel Sounds, Soft. No: Tenderness Cardiovascular: Yes: Pulse Irregular JVD: No Carotid Bruit: No PMI: Non-Displaced Heart Sounds: Yes: S1, S2. No: Clicks, Gallop Murmur: Yes: Systolic Murmur, Grade 1 Edema: No - Other Data Labs, Other Data: CBC, BMP 08/24/18 05:30 08/24/18 12:30 INR, PTT INR 1.67 (0.83-1.09) H 08/23/18 16:22 Troponin, BNP 08/23/18 08/24/18 21:30 05:30 Troponin I 0.31 H 0.34 H Laboratory Results - last 24 hr 08/23/18 08/24/18 08/24/18 21:30 05:30 05:30 WBC 8.4 RBC 3.21 L Hgb 9.1 L Hct 28.9 L MCV 89.9 MCH 28.5 MCHC 31.7 L RDW 18.6 H Plt Count 178 MPV 9.3 Absolute Neuts (auto) 6.0 Neutrophils % 72.5 Lymphocytes % 9.1 D Monocytes % 16.8 H D Eosinophils % 0.8 D Basophils % 0.8 D Nucleated RBC % 0 Anticoagulation Therapy Puncture Site ABG pH ABG pCO2 at Pt Temp ABG pO2 at Pt Temp ABG HCO3 ABG O2 Sat (Measured) ABG O2 Content ABG Base Excess Aiden Test VBG pH POC VBG pCO2 POC VBG pO2 Mixed VBG HCO3 O2 Delivery Device Oxygen Flow Rate Vent Mode Vent Rate Mechanical Rate Pressure Support Vent Sodium 140 Potassium 6.3 H* Chloride 112 H Carbon Dioxide 17 L Anion Gap 11 BUN 68 H Creatinine 3.0 H Creat Clearance w eGFR 20.79 POC Glucometer Random Glucose 51 L Lactic Acid Calcium 9.1 Magnesium 1.9 Total Bilirubin 1.4 H AST 60 H ALT 33 Alkaline Phosphatase 93 Creatine Kinase 63 Troponin I 0.31 H 0.34 H Total Protein 8.8 H Albumin 3.8 08/24/18 08/24/18 08/24/18 08:45 12:11 12:21 WBC RBC Hgb Hct MCV MCH MCHC RDW Plt Count MPV Absolute Neuts (auto) Neutrophils % Lymphocytes % Monocytes % Eosinophils % Basophils % Nucleated RBC % Anticoagulation Therapy No Result Required. Puncture Site Left radial Right radial ABG pH 7.07 L* 7.03 L* ABG pCO2 at Pt Temp 50.0 H 52.9 H ABG pO2 at Pt Temp 204.0 H* 122.0 H D ABG HCO3 13.8 L* 13.1 L* ABG O2 Sat (Measured) 98.6 96.0 ABG O2 Content 13.0 L 12.1 L ABG Base Excess -15.4 L* -16.8 L* Aiden Test Positive Positive VBG pH POC VBG pCO2 POC VBG pO2 Mixed VBG HCO3 O2 Delivery Device No Result Required. Oxygen Flow Rate Yes Yes Vent Mode No Result Required. Vent Rate No Result Required. Mechanical Rate No Result Required. Pressure Support Vent No Result Required. Sodium Potassium Chloride Carbon Dioxide Anion Gap BUN Creatinine Creat Clearance w eGFR POC Glucometer 77.24567 Random Glucose Lactic Acid Calcium Magnesium Total Bilirubin AST ALT Alkaline Phosphatase Creatine Kinase Troponin I Total Protein Albumin 08/24/18 08/24/18 08/24/18 12:30 13:00 13:21 WBC RBC Hgb Hct MCV MCH MCHC RDW Plt Count MPV Absolute Neuts (auto) Neutrophils % Lymphocytes % Monocytes % Eosinophils % Basophils % Nucleated RBC % Anticoagulation Therapy Puncture Site ABG pH ABG pCO2 at Pt Temp ABG pO2 at Pt Temp ABG HCO3 ABG O2 Sat (Measured) ABG O2 Content ABG Base Excess Aiden Test VBG pH POC VBG pCO2 POC VBG pO2 Mixed VBG HCO3 O2 Delivery Device Oxygen Flow Rate Vent Mode Vent Rate Mechanical Rate Pressure Support Vent Sodium 141 Potassium 6.9 H* Chloride 111 H Carbon Dioxide 15 L Anion Gap 15 BUN 72 H Creatinine 3.5 H Creat Clearance w eGFR 17.40 POC Glucometer 79.71256 Random Glucose 58 L Lactic Acid 7.1 H* Calcium 9.0 Magnesium Total Bilirubin 1.4 H AST 170 H ALT 71 H Alkaline Phosphatase 91 Creatine Kinase Troponin I Total Protein 8.4 H Albumin 3.6 08/24/18 08/24/18 08/24/18 15:30 15:36 17:26 WBC RBC Hgb Hct MCV MCH MCHC RDW Plt Count MPV Absolute Neuts (auto) Neutrophils % Lymphocytes % Monocytes % Eosinophils % Basophils % Nucleated RBC % Anticoagulation Therapy Puncture Site ABG pH ABG pCO2 at Pt Temp ABG pO2 at Pt Temp ABG HCO3 ABG O2 Sat (Measured) ABG O2 Content ABG Base Excess Aiden Test VBG pH 7.25 L POC VBG pCO2 40.8 POC VBG pO2 60.1 H Mixed VBG HCO3 17.4 L O2 Delivery Device Oxygen Flow Rate Vent Mode Vent Rate Mechanical Rate Pressure Support Vent Sodium Potassium Chloride Carbon Dioxide Anion Gap BUN Creatinine Creat Clearance w eGFR POC Glucometer 110.67404 137.95045 Random Glucose Lactic Acid Calcium Magnesium Total Bilirubin AST ALT Alkaline Phosphatase Creatine Kinase Troponin I Total Protein Albumin Sinus rhythm with APCs, nonspecific ST and probably hyperacute T Imaging - Results Chest X-ray: Report Reviewed (Central congestion) EKG: Report Reviewed Problem List - Problems (1) Respiratory failure Code(s): J96.90 - RESPIRATORY FAILURE, UNSP, UNSP W HYPOXIA OR HYPERCAPNIA (2) On mechanically assisted ventilation Code(s): Z99.11 - DEPENDENCE ON RESPIRATOR [VENTILATOR] STATUS (3) NAS (acute kidney injury) Code(s): N17.9 - ACUTE KIDNEY FAILURE, UNSPECIFIED (4) CHF (congestive heart failure) Code(s): I50.9 - HEART FAILURE, UNSPECIFIED Qualifiers: Heart failure type: unspecified Heart failure chronicity: unspecified Qualified Code(s): I50.9 - Heart failure, unspecified (5) Alcohol dependence Code(s): F10.20 - ALCOHOL DEPENDENCE, UNCOMPLICATED Qualifiers: Substance use status: uncomplicated Qualified Code(s): F10.20 - Alcohol dependence, uncomplicated (6) Afib Code(s): I48.91 - UNSPECIFIED ATRIAL FIBRILLATION (7) Anemia Code(s): D64.9 - ANEMIA, UNSPECIFIED Qualifiers: Anemia type: iron deficiency (8) Chronic kidney disease Code(s): N18.9 - CHRONIC KIDNEY DISEASE, UNSPECIFIED Qualifiers: Chronic kidney disease stage: stage 2 (mild) Qualified Code(s): N18.2 - Chronic kidney disease, stage 2 (mild) (9) DM type 2 (diabetes mellitus, type 2) Code(s): E11.9 - TYPE 2 DIABETES MELLITUS WITHOUT COMPLICATIONS Qualifiers: Diabetes mellitus complication status: with unspecified complications (10) HTN (hypertension) Code(s): I10 - ESSENTIAL (PRIMARY) HYPERTENSION Qualifiers: Hypertension type: essential hypertension Qualified Code(s): I10 - Essential (primary) hypertension (11) Hep C w/o coma, chronic Code(s): B18.2 - CHRONIC VIRAL HEPATITIS C (12) ICD (implantable cardioverter-defibrillator) in place Code(s): Z95.810 - PRESENCE OF AUTOMATIC (IMPLANTABLE) CARDIAC DEFIBRILLATOR (13) Demand ischemia Code(s): I24.8 - OTHER FORMS OF ACUTE ISCHEMIC HEART DISEASE (14) Syncope Code(s): R55 - SYNCOPE AND COLLAPSE Qualifiers: Syncope type: unspecified Qualified Code(s): R55 - Syncope and collapse (15) Lactic acidosis Code(s): E87.2 - ACIDOSIS (16) Respiratory acidosis Code(s): E87.2 - ACIDOSIS (17) Metabolic acidosis Code(s): E87.2 - ACIDOSIS Assessment/Plan 1. NAS (previous history of CKD) with hyperkalemia and metabolic and respiratory acidosis 2. Respiratory failure requiring intubation and mechanical ventilation 3. Change in mental status due to above acidosis and acute renal failure, rule out sepsis or mixed picture of cardiac component 4. CAD with demand ischemia 5. Ischemic cardiomyopathy s/p ICD 6. History of PAF - initially showed AF on admission and then probable AF with RVR (early this AM) 7. History of syncope due to ETOH intoxication 8. DM 9. Anemia PLAN: 1. Renal input noted for acute HD. Correct K and acidosis 2. Monitor electrolytes 3. Vent management as per Critical care team 4. Trend troponin 5. Monitor rhythm and rate control. Calcium channel mirella could be used for short term rate control but not ideal for longterm management in view of severe LV systolic dysfunction. Would rather use beta mirella and may use IV Lopressor 6. Not an ideal candidate for longterm anticoagulation due to ETOH use and risk of bleeding 7. Monitor H/H and transfuse as needed 8. Echocardiography in AM to re-assess LV/RV and valvular function Prognosis: critical Sang Kristin Briggs MD
[2018-08-24 22:55] LABS: ANION GAP 5 MMOL/L (8-16); BLOOD UREA NITROGEN 47 mg/dL (7-18); CHLORIDE 109 mmol/L (98-107); CO2 27 mmol/L (21-32); CREATININE 2.3 mg/dL (0.55-1.3); GLUCOSE,RANDOM 103 mg/dL (74-106); POTASSIUM 4.3 mmol/L (3.5-5.1); SODIUM 141 mmol/L (136-145)
[2018-08-25] MEDS ORDERED: fentaNYL CITRATE 250 MCG/5 ML VIAL ONE (04:51)
[2018-08-25] MEDS: FENTANYL INJECTION 500 MCG in DEXTROSE 5%-WATER - 90 ML IVPB SCH (05:10)
[2018-08-25 05:36] LABS: BASO % 0.5 % (0-2.0); HEMATOCRIT 26.6 % (35.4-49); HEMOGLOBIN 8.2 GM/dL (11.7-16.9); LYMPH % 4.5 % (8-40); MCH 26.7 pg (25.7-33.7); MCHC 30.8 g/dl (32.0-35.9); MEAN CELL VOLUME 86.8 fl (80-96); MEAN PLT VOLUME 8.7 fl (7.5-11.1); MONO % 8.5 % (3.8-10.2); NEUT % 84.5 % (42.8-82.8); PLATELET COUNT 136 K/MM3 (134-434); RBC 3.07 M/mm3 (4.00-5.60); RDW 18.1 % (11.9-15.9); WHITE BLOOD COUNT 7.7 K/mm3 (4.0-10.0)
[2018-08-25 06:19] LABS: ANION GAP 9 MMOL/L (8-16); BLOOD UREA NITROGEN 54 mg/dL (7-18); CALCIUM 8.3 mg/dL (8.5-10.1); CHLORIDE 108 mmol/L (98-107); CO2 25 mmol/L (21-32); CREATININE 2.6 mg/dL (0.55-1.3); GLUCOSE,RANDOM 86 mg/dL (74-106); MAGNESIUM 1.5 mg/dL (1.8-2.4); PHOSPHOROUS 3.6 mg/dL (2.5-4.9); SODIUM 143 mmol/L (136-145)
[2018-08-25] MEDS: HEPARIN NA (PORCINE) 5,000 UNITS/ML 1ML VIAL SQ SCH ×3 (06:23→22:09)
--- NOTE | 2018-08-25 07:09 | PN ---
Teaching Attending Note Name of Resident: eBlla Graff ATTENDING PHYSICIAN STATEMENT I saw and evaluated the patient. I reviewed the resident's note and discussed the case with the resident. I agree with the resident's findings and plan as documented. SUBJECTIVE: no events over night OBJECTIVE: intubated , sedated. round pinpoint pupils . ET tube in . CV: RRR, 3/6 SM at LLSB. JVD Lungs: clear lungs anteriorly Ext: 1+ pitting edema Abd: soft, hypoactive BS. reducible umbilical hernia. ASSESSMENT AND PLAN: 68 y/o man with h/o alcohol abuse, HTn, S heart failure, s/p AICD, Hep C, DM , and recent admission fro alcohol intoxication and demand ischemia discharged to [facility] on 08/18 , who was sent form [facility] for AMS . he was found to have hypoglycemia, and NAS. 1-Acute hypercapnic resp failure. likely due to CHF, renal failure and metabolic acidosis - cont vent support - sedation - weaning trials. 2- Acute metabolic acidosis : due to NAS and metformin use. - repeat lactic - s/p HD yesterday. - repeat ABG 3- Acute systolic CHF exacerbation: - s/p HD yesterday - monitor volume status today - echo pending 4- A fib with RVR: now back to sinus on tele. did not require cardizem gtt and did respond to IV cardizem x 1. - repeat EKG - not a candidate for AC 5- Hyperkalemia: due to NAS . resolved after HD 6- Alcohol abuse: just finished detox at [facility] 7- DM: was hypoglycemic. now sugar improved . hold metformin and will not resume at dc DVT PX
[2018-08-25] MEDS ORDERED: MAGNESIUM SULF 50% (8.12 MEQ/2 ML-1 GM VIAL) IVPB ONE (07:20)
--- NOTE | 2018-08-25 07:46 | PN ---
Physical Exam: SUBJECTIVE: Patient seen and examined at bedside. No acute events overnight. OBJECTIVE: Vital Signs Temperature 98.4 F 08/25/18 06:00 Pulse Rate 61 08/25/18 06:00 Respiratory Rate 24 H 08/25/18 06:35 Blood Pressure 113/70 08/25/18 06:00 O2 Sat by Pulse Oximetry (%) 100 08/24/18 21:00 GENERAL: Sedated. Intubated. HEENT: AT/NC. NECK: Supple, no LAD. +JVD. LUNGS: bibasilar coarse crackles HEART: irregularly, irregulary rhythm. 3/6 systolic murmur LLSB ABDOMEN: Soft, NT/ND. +umbilical hernia, reducible, non-tender. EXTREMITIES: 2+ pulses, warm, well-perfused, no edema. NEUROLOGICAL: Unable to assess. SKIN: Warm, dry, normal turgor, no rashes or lesions noted CBCD WBC 7.7 K/mm3 (4.0-10.0) 08/25/18 05:15 RBC 3.07 M/mm3 (4.00-5.60) L 08/25/18 05:15 Hgb 8.2 GM/dL (11.7-16.9) L 08/25/18 05:15 Hct 26.6 % (35.4-49) L 08/25/18 05:15 MCV 86.8 fl (80-96) 08/25/18 05:15 MCHC 30.8 g/dl (32.0-35.9) L 08/25/18 05:15 RDW 18.1 % (11.9-15.9) H 08/25/18 05:15 Plt Count 136 K/MM3 (134-434) D 08/25/18 05:15 MPV 8.7 fl (7.5-11.1) 08/25/18 05:15 CMP Sodium 143 mmol/L (136-145) 08/25/18 05:15 Potassium 4.0 mmol/L (3.5-5.1) 08/25/18 05:15 Chloride 108 mmol/L (98-107) H 08/25/18 05:15 Carbon Dioxide 25 mmol/L (21-32) 08/25/18 05:15 Anion Gap 9 MMOL/L (8-16) 08/25/18 05:15 BUN 54 mg/dL (7-18) H 08/25/18 05:15 Creatinine 2.6 mg/dL (0.55-1.3) H 08/25/18 05:15 Creat Clearance w eGFR 24.53 (>60) 08/25/18 05:15 Calcium 8.3 mg/dL (8.5-10.1) L 08/25/18 05:15 Total Bilirubin 1.4 mg/dL (0.2-1) H 08/24/18 12:30 AST 170 U/L (15-37) H 08/24/18 12:30 ALT 71 U/L (13-61) H 08/24/18 12:30 Alkaline Phosphatase 91 U/L (45-117) 08/24/18 12:30 Total Protein 8.4 g/dl (6.4-8.2) H 08/24/18 12:30 Albumin 3.6 g/dl (3.4-5.0) 08/24/18 12:30 Active Medications Aspirin (Asa -) 81 mg PO DAILY ALEAH Last Admin: 08/24/18 12:32 Dose: 81 mg Folic Acid (Folic Acid -) 1 mg PO DAILY ALEAH Last Admin: 08/24/18 12:32 Dose: 1 mg Heparin Sodium (Porcine) (Heparin -) 5,000 unit SQ TID ALEAH Last Admin: 08/25/18 06:23 Dose: 5,000 unit Propofol (Diprivan -) 1,000,000 mcg in 100 mls @ 3.742 mls/hr IVPB TITR ALEAH; Protocol Last Titration: 08/25/18 05:09 Dose: 20 mcg/kg/min, 14.969 mls/hr Fentanyl 500 mcg/ Dextrose 100 mls @ 10 mls/hr IVPB TITR ALEAH; Protocol Last Admin: 08/25/18 05:10 Dose: 25 mcg/hr, 5 mls/hr Sodium Chloride (Normal Saline -) 250 mls @ 3,000 mls/hr IV PRN PRN PRN Reason: Hypotension during Dialysis Stop: 08/25/18 14:22 Magnesium Sulfate (Magnesium Sulfate) 2 gm IVPB ONCE ONE Stop: 08/25/18 07:21 Metoprolol Tartrate (Lopressor -) 25 mg PO BID ALEAH Last Admin: 08/24/18 21:25 Dose: 25 mg Pantoprazole Sodium (Protonix Iv) 40 mg IVPUSH DAILY [facility] Last Admin: 08/24/18 12:36 Dose: 40 mg Thiamine HCl (Vitamin B1 -) 100 mg PO DAILY [facility] Last Admin: 08/24/18 12:32 Dose: 100 mg IMAGING: * Renal U/S: Morphologically normal kidneys with no hydronephrosis or acute pathology. * Carotid doppler: Dilated R internal jugular vein * Echo: LV systolic fxn mod to severely reduced. Mod to severe global hypokinesis of LV. EF 35-50%. LA/RA mod dilated. Mild mitral valve thickening. Mild mitral annular calcification. Moderate MR/TR. PA systolic pressure at least 69 mmHg assuming RA pressure of 3 mmHg. Mild aortic sclerosis. Mildly dilated ascending aorta. No pericardial effusion. ASSESSMENT/PLAN: 68 y/o man with h/o alcohol abuse, HTN, S heart failure, s/p AICD, Hep C, DM , and recent admission fro alcohol intoxication and demand ischemia discharged to [facility] on 08/18, who was sent form [facility] for AMS . he was found to have hypoglycemia, and NAS. #Acute hypercapnic resp failure; likely due to CHF, renal failure and metabolic acidosis -Extubated, currently on 40% Ventimask. -Cont to monitor -ABG improved. #Acute metabolic acidosis; due to NAS and metformin use. -lactate resolved. -s/p HD yesterday. -ABG improved, 7.47/34.8/169/25.2 #Acute systolic CHF exacerbation -s/p HD yesterday -monitor volume status today -Echo pending #A fib with RVR; now back to sinus on tele. -repeat EKG showed SR, prolonged QTc 531 ms -Metoprolol Tartrate 25 mg PO BID -not a candidate for AC due to hx of non-compliance and syncope/falls #Hyperkalemia; due to NAS. resolved after HD #Alcohol abuse; just finished detox at [facility] -Folic acid 1 mg PO QD -Thiamine 100 mg PO QD -Librium 25 mg PO Q6H -drug cessation counseling #DM; was hypoglycemic. -now sugar improved -hold metformin and will not resume at dc -BGMs ACHS #Prophylaxis -DVT-Heparin 5000U SQ TID -GI-Pantoprazole 40 mg IVP QD dispo -cont to monitor in ICU Visit type - Emergency Visit Emergency Visit: Yes ED Registration Date: 08/23/18 Care time: The patient presented to the Emergency Department on the above date and was hospitalized for further evaluation of their emergent condition. - New Patient This patient is new to me today: No - Critical Care Critical Care patient: Yes Total Critical Care Time (in minutes): 40 Critical Care Statement: The care of this patient involved high complexity decision making to prevent further life threatening deterioration of the patient 's condition and/or to evaluate & treat vital organ system(s) failure or risk of failure.
[2018-08-25 09:10] LABS: ARTERIAL BLOOD GAS PCO2 34.8 mmHg (35-45); ARTERIAL BLOOD GAS pH 7.47 (7.35-7.45)
[2018-08-25 09:11] LABS: ALLENS TEST POSITIVE; ARTERIAL BLD GAS O2 SATURATION 99.8 % (90-98.9); ARTERIAL BLOOD GAS BASE EXCESS 2.1 meq/l (-2-2)
[2018-08-25] MEDS: METOPROLOL TARTRATE 25 MG TABLET (FP) PO SCH ×2 (09:14→22:08)
[2018-08-25] MEDS: PANTOPRAZOLE SODIUM 40 MG VIAL IVPUSH SCH (09:14)
[2018-08-25] MEDS: PROPOFOL 1,000,000 MCG/100 ML VIAL IVPB SCH (09:14)
[2018-08-25] MEDS: THIAMINE HCL 100 MG TABLET (FP) PO SCH (09:14)
[2018-08-25] MEDS: FOLIC ACID 1 MG TABLET (FP) PO SCH (09:14)
[2018-08-25] MEDS: ASPIRIN 81 MG CHEWABLE TABLETS PO SCH (09:14)
--- NOTE | 2018-08-25 11:01 | PN ---
Progress Note, Physician Chief Complaint: Remains in ICU on mechanical ventilation History of Present Illness: Patient was seen and examined in ICU. Remains intubated. Sedation off and weaning off the vent Chart was reviewed Hemodynamics improved - Current Medication List Current Medications: Active Medications Aspirin (Asa -) 81 mg PO DAILY [facility] Last Admin: 08/25/18 09:14 Dose: 81 mg Folic Acid (Folic Acid -) 1 mg PO DAILY [facility] Last Admin: 08/25/18 09:14 Dose: 1 mg Heparin Sodium (Porcine) (Heparin -) 5,000 unit SQ TID [facility] Last Admin: 08/25/18 06:23 Dose: 5,000 unit Propofol (Diprivan -) 1,000,000 mcg in 100 mls @ 3.742 mls/hr IVPB TITR [facility]; Protocol Last Admin: 08/25/18 09:14 Dose: 10 mcg/kg/min, 7.484 mls/hr Fentanyl 500 mcg/ Dextrose 100 mls @ 10 mls/hr IVPB TITR [facility]; Protocol Last Admin: 08/25/18 05:10 Dose: 25 mcg/hr, 5 mls/hr Sodium Chloride (Normal Saline -) 250 mls @ 3,000 mls/hr IV PRN PRN PRN Reason: Hypotension during Dialysis Stop: 08/25/18 14:22 Metoprolol Tartrate (Lopressor -) 25 mg PO BID [facility] Last Admin: 08/25/18 09:14 Dose: 25 mg Pantoprazole Sodium (Protonix Iv) 40 mg IVPUSH DAILY [facility] Last Admin: 08/25/18 09:14 Dose: 40 mg Thiamine HCl (Vitamin B1 -) 100 mg PO DAILY [facility] Last Admin: 08/25/18 09:14 Dose: 100 mg - Objective Vital Signs: Vital Signs Temperature 98.4 F 08/25/18 06:00 Pulse Rate 59 L 08/25/18 08:24 Respiratory Rate 25 H 08/25/18 08:23 Blood Pressure 117/67 08/25/18 08:00 O2 Sat by Pulse Oximetry (%) 100 08/25/18 09:00 Neck: Yes: Supple Cardiovascular: Yes: Regular Rate and Rhythm, S1, S2 Respiratory: Yes: Mechanically Ventilated Gastrointestinal: Yes: Normal Bowel Sounds, Soft. No: Tenderness Edema: Yes Edema: LLE: Trace, RLE: Trace Labs: CBC, BMP 08/25/18 05:15 08/25/18 05:15 INR, PTT INR 1.67 (0.83-1.09) H 08/23/18 16:22 Laboratory Results - last 24 hr 08/24/18 08/24/18 08/24/18 12:11 12:21 12:30 WBC RBC Hgb Hct MCV MCH MCHC RDW Plt Count MPV Absolute Neuts (auto) Neutrophils % Lymphocytes % Monocytes % Eosinophils % Basophils % Nucleated RBC % Anticoagulation Therapy Puncture Site Right radial ABG pH 7.03 L* ABG pCO2 at Pt Temp 52.9 H ABG pO2 at Pt Temp 122.0 H D ABG HCO3 13.1 L* ABG O2 Sat (Measured) 96.0 ABG O2 Content 12.1 L ABG Base Excess -16.8 L* Aiden Test Positive VBG pH POC VBG pCO2 POC VBG pO2 Mixed VBG HCO3 O2 Delivery Device Oxygen Flow Rate Yes Vent Mode Vent Rate Mechanical Rate Pressure Support Vent Sodium 141 Potassium 6.9 H* Chloride 111 H Carbon Dioxide 15 L Anion Gap 15 BUN 72 H Creatinine 3.5 H Creat Clearance w eGFR 17.40 POC Glucometer 77.12428 Random Glucose 58 L Lactic Acid Calcium 9.0 Phosphorus Magnesium Total Bilirubin 1.4 H AST 170 H ALT 71 H Alkaline Phosphatase 91 Troponin I Total Protein 8.4 H Albumin 3.6 08/24/18 08/24/18 08/24/18 13:00 13:21 15:30 WBC RBC Hgb Hct MCV MCH MCHC RDW Plt Count MPV Absolute Neuts (auto) Neutrophils % Lymphocytes % Monocytes % Eosinophils % Basophils % Nucleated RBC % Anticoagulation Therapy Puncture Site ABG pH ABG pCO2 at Pt Temp ABG pO2 at Pt Temp ABG HCO3 ABG O2 Sat (Measured) ABG O2 Content ABG Base Excess Aiden Test VBG pH 7.25 L POC VBG pCO2 40.8 POC VBG pO2 60.1 H Mixed VBG HCO3 17.4 L O2 Delivery Device Oxygen Flow Rate Vent Mode Vent Rate Mechanical Rate Pressure Support Vent Sodium Potassium Chloride Carbon Dioxide Anion Gap BUN Creatinine Creat Clearance w eGFR POC Glucometer 79.22172 Random Glucose Lactic Acid 7.1 H* Calcium Phosphorus Magnesium Total Bilirubin AST ALT Alkaline Phosphatase Troponin I Total Protein Albumin 08/24/18 08/24/18 08/24/18 15:36 17:26 22:08 WBC RBC Hgb Hct MCV MCH MCHC RDW Plt Count MPV Absolute Neuts (auto) Neutrophils % Lymphocytes % Monocytes % Eosinophils % Basophils % Nucleated RBC % Anticoagulation Therapy Puncture Site ABG pH ABG pCO2 at Pt Temp ABG pO2 at Pt Temp ABG HCO3 ABG O2 Sat (Measured) ABG O2 Content ABG Base Excess Aiden Test VBG pH POC VBG pCO2 POC VBG pO2 Mixed VBG HCO3 O2 Delivery Device Oxygen Flow Rate Vent Mode Vent Rate Mechanical Rate Pressure Support Vent Sodium 141 Potassium 4.3 Chloride 109 H Carbon Dioxide 27 Anion Gap 5 L BUN 47 H Creatinine 2.3 H Creat Clearance w eGFR 28.25 POC Glucometer 110.72353 137.23378 Random Glucose 103 Lactic Acid Calcium 8.0 L Phosphorus Magnesium Total Bilirubin AST ALT Alkaline Phosphatase Troponin I Total Protein Albumin 08/25/18 08/25/18 08/25/18 05:15 05:15 08:20 WBC 7.7 RBC 3.07 L Hgb 8.2 L Hct 26.6 L MCV 86.8 MCH 26.7 MCHC 30.8 L RDW 18.1 H Plt Count 136 D MPV 8.7 Absolute Neuts (auto) 6.5 Neutrophils % 84.5 H Lymphocytes % 4.5 L D Monocytes % 8.5 Eosinophils % 2.0 D Basophils % 0.5 Nucleated RBC % 0 Anticoagulation Therapy Puncture Site ABG pH ABG pCO2 at Pt Temp ABG pO2 at Pt Temp ABG HCO3 ABG O2 Sat (Measured) ABG O2 Content ABG Base Excess Aiden Test VBG pH POC VBG pCO2 POC VBG pO2 Mixed VBG HCO3 O2 Delivery Device Oxygen Flow Rate Vent Mode Vent Rate Mechanical Rate Pressure Support Vent Sodium 143 Potassium 4.0 Chloride 108 H Carbon Dioxide 25 Anion Gap 9 BUN 54 H Creatinine 2.6 H Creat Clearance w eGFR 24.53 POC Glucometer Random Glucose 86 Lactic Acid 1.1 Calcium 8.3 L Phosphorus 3.6 Magnesium 1.5 L Total Bilirubin AST ALT Alkaline Phosphatase Troponin I 0.36 H Total Protein Albumin 08/25/18 08:55 WBC RBC Hgb Hct MCV MCH MCHC RDW Plt Count MPV Absolute Neuts (auto) Neutrophils % Lymphocytes % Monocytes % Eosinophils % Basophils % Nucleated RBC % Anticoagulation Therapy No Result Required. Puncture Site Right radial ABG pH 7.47 H D ABG pCO2 at Pt Temp 34.8 L D ABG pO2 at Pt Temp 169.0 H* D ABG HCO3 25.2 ABG O2 Sat (Measured) 99.8 H* ABG O2 Content 11.7 L ABG Base Excess 2.1 H Aiden Test Positive VBG pH POC VBG pCO2 POC VBG pO2 Mixed VBG HCO3 O2 Delivery Device No Result Required. Oxygen Flow Rate Yes Vent Mode No Result Required. Vent Rate No Result Required. Mechanical Rate No Result Required. Pressure Support Vent No Result Required. Sodium Potassium Chloride Carbon Dioxide Anion Gap BUN Creatinine Creat Clearance w eGFR POC Glucometer Random Glucose Lactic Acid Calcium Phosphorus Magnesium Total Bilirubin AST ALT Alkaline Phosphatase Troponin I Total Protein Albumin Problem List - Problems (1) Respiratory failure Code(s): J96.90 - RESPIRATORY FAILURE, UNSP, UNSP W HYPOXIA OR HYPERCAPNIA (2) On mechanically assisted ventilation Code(s): Z99.11 - DEPENDENCE ON RESPIRATOR [VENTILATOR] STATUS (3) NAS (acute kidney injury) Code(s): N17.9 - ACUTE KIDNEY FAILURE, UNSPECIFIED (4) CHF (congestive heart failure) Code(s): I50.9 - HEART FAILURE, UNSPECIFIED Qualifiers: Heart failure type: unspecified Heart failure chronicity: unspecified Qualified Code(s): I50.9 - Heart failure, unspecified (5) Alcohol dependence Code(s): F10.20 - ALCOHOL DEPENDENCE, UNCOMPLICATED Qualifiers: Substance use status: uncomplicated Qualified Code(s): F10.20 - Alcohol dependence, uncomplicated (6) Afib Code(s): I48.91 - UNSPECIFIED ATRIAL FIBRILLATION (7) Anemia Code(s): D64.9 - ANEMIA, UNSPECIFIED Qualifiers: Anemia type: iron deficiency (8) Chronic kidney disease Code(s): N18.9 - CHRONIC KIDNEY DISEASE, UNSPECIFIED Qualifiers: Chronic kidney disease stage: stage 2 (mild) Qualified Code(s): N18.2 - Chronic kidney disease, stage 2 (mild) (9) DM type 2 (diabetes mellitus, type 2) Code(s): E11.9 - TYPE 2 DIABETES MELLITUS WITHOUT COMPLICATIONS Qualifiers: Diabetes mellitus complication status: with unspecified complications (10) HTN (hypertension) Code(s): I10 - ESSENTIAL (PRIMARY) HYPERTENSION Qualifiers: Hypertension type: essential hypertension Qualified Code(s): I10 - Essential (primary) hypertension (11) Hep C w/o coma, chronic Code(s): B18.2 - CHRONIC VIRAL HEPATITIS C (12) ICD (implantable cardioverter-defibrillator) in place Code(s): Z95.810 - PRESENCE OF AUTOMATIC (IMPLANTABLE) CARDIAC DEFIBRILLATOR (13) Demand ischemia Code(s): I24.8 - OTHER FORMS OF ACUTE ISCHEMIC HEART DISEASE (14) Syncope Code(s): R55 - SYNCOPE AND COLLAPSE Qualifiers: Syncope type: unspecified Qualified Code(s): R55 - Syncope and collapse (15) Lactic acidosis Code(s): E87.2 - ACIDOSIS (16) Respiratory acidosis Code(s): E87.2 - ACIDOSIS (17) Metabolic acidosis Code(s): E87.2 - ACIDOSIS Assessment/Plan 1. NAS (previous history of CKD) with hyperkalemia and metabolic and respiratory acidosis s/p urgent HD 2. Respiratory failure requiring intubation and mechanical ventilation 3. Change in mental status due to above acidosis and acute renal failure, rule out sepsis or mixed picture of cardiac component 4. CAD with demand ischemia 5. Ischemic cardiomyopathy s/p ICD 6. History of PAF - initially showed AF on admission and then probable AF with RVR (early this AM) 7. History of syncope due to ETOH intoxication 8. DM 9. Anemia PLAN: 1. HD as per renal service - currently acidosis has improved 2. Monitor electrolytes 3. Vent management as per Critical care team - weaning process 4. Trend troponin 5. Monitor rhythm and rate control. Calcium channel mirella could be used for short term rate control but not ideal for senior care management in view of severe LV systolic dysfunction. Would rather use beta mirella and may use IV Lopressor - currently appears to be in sinus rhythm 6. Not an ideal candidate for senior care anticoagulation due to ETOH use and risk of bleeding 7. Monitor H/H and transfuse as needed 8. Echocardiography in AM to re-assess LV/RV and valvular function Prognosis: critical Sang Kristin Briggs MD
--- NOTE | 2018-08-25 11:19 | PN ---
Teaching Attending Note Name of Resident: Bakari Rose ATTENDING PHYSICIAN STATEMENT I saw and evaluated the patient. I reviewed the resident's note and discussed the case with the resident. I agree with the resident's findings and plan as documented. SUBJECTIVE: Patient seen and examined in the ICU. Intubated and still sedated. No pressors. AC mode of vent, 40% FiO2. S/P HD yesterday. Intake & Output 08/22/18 08/23/18 08/24/18 08/25/18 23:59 23:59 23:59 23:59 Intake Total 471 115 Output Total 200 800 450 Balance -200 -329 -335 Weight 275 lb 230 lb 9 oz 230 lb 14.4 oz Last Vital Signs Temp Pulse Resp BP Pulse Ox 98.4 F 59 L 25 H 117/67 100 08/25/18 06:00 08/25/18 08:24 08/25/18 08:23 08/25/18 08:00 08/25/18 09:00 Active Medications Aspirin (Asa -) 81 mg PO DAILY [facility] Last Admin: 08/25/18 09:14 Dose: 81 mg Folic Acid (Folic Acid -) 1 mg PO DAILY [facility] Last Admin: 08/25/18 09:14 Dose: 1 mg Heparin Sodium (Porcine) (Heparin -) 5,000 unit SQ TID [facility] Last Admin: 08/25/18 06:23 Dose: 5,000 unit Propofol (Diprivan -) 1,000,000 mcg in 100 mls @ 3.742 mls/hr IVPB TITR [facility]; Protocol Last Admin: 08/25/18 09:14 Dose: 10 mcg/kg/min, 7.484 mls/hr Fentanyl 500 mcg/ Dextrose 100 mls @ 10 mls/hr IVPB TITR [facility]; Protocol Last Admin: 08/25/18 05:10 Dose: 25 mcg/hr, 5 mls/hr Sodium Chloride (Normal Saline -) 250 mls @ 3,000 mls/hr IV PRN PRN PRN Reason: Hypotension during Dialysis Stop: 08/25/18 14:22 Metoprolol Tartrate (Lopressor -) 25 mg PO BID [facility] Last Admin: 08/25/18 09:14 Dose: 25 mg Pantoprazole Sodium (Protonix Iv) 40 mg IVPUSH DAILY [facility] Last Admin: 12/31/18 09:14 Dose: 40 mg Thiamine HCl (Vitamin B1 -) 100 mg PO DAILY [facility] Last Admin: 08/25/18 09:14 Dose: 100 mg PE: GEN: intubated sedated HEENT: PERRL, neck supple, no LAD PULM: Bibasilar coarse crackles CV: 3/6 MICAH at LSB, irregular ABD: soft, NT, ND EXT: trace edema, cool ext, + pulses Neuro: sedated, withdrawals bilaterally to noxious stimuli Laboratory Results - last 24 hr 08/24/18 08/24/18 08/24/18 12:11 12:21 12:30 WBC RBC Hgb Hct MCV MCH MCHC RDW Plt Count MPV Absolute Neuts (auto) Neutrophils % Lymphocytes % Monocytes % Eosinophils % Basophils % Nucleated RBC % Anticoagulation Therapy Puncture Site Right radial ABG pH 7.03 L* ABG pCO2 at Pt Temp 52.9 H ABG pO2 at Pt Temp 122.0 H D ABG HCO3 13.1 L* ABG O2 Sat (Measured) 96.0 ABG O2 Content 12.1 L ABG Base Excess -16.8 L* Aiden Test Positive VBG pH POC VBG pCO2 POC VBG pO2 Mixed VBG HCO3 O2 Delivery Device Oxygen Flow Rate Yes Vent Mode Vent Rate Mechanical Rate Pressure Support Vent Sodium 141 Potassium 6.9 H* Chloride 111 H Carbon Dioxide 15 L Anion Gap 15 BUN 72 H Creatinine 3.5 H Creat Clearance w eGFR 17.40 POC Glucometer 77.60124 Random Glucose 58 L Lactic Acid Calcium 9.0 Phosphorus Magnesium Total Bilirubin 1.4 H AST 170 H ALT 71 H Alkaline Phosphatase 91 Troponin I Total Protein 8.4 H Albumin 3.6 08/24/18 08/24/18 08/24/18 13:00 13:21 15:30 WBC RBC Hgb Hct MCV MCH MCHC RDW Plt Count MPV Absolute Neuts (auto) Neutrophils % Lymphocytes % Monocytes % Eosinophils % Basophils % Nucleated RBC % Anticoagulation Therapy Puncture Site ABG pH ABG pCO2 at Pt Temp ABG pO2 at Pt Temp ABG HCO3 ABG O2 Sat (Measured) ABG O2 Content ABG Base Excess Aiden Test VBG pH 7.25 L POC VBG pCO2 40.8 POC VBG pO2 60.1 H Mixed VBG HCO3 17.4 L O2 Delivery Device Oxygen Flow Rate Vent Mode Vent Rate Mechanical Rate Pressure Support Vent Sodium Potassium Chloride Carbon Dioxide Anion Gap BUN Creatinine Creat Clearance w eGFR POC Glucometer 79.41929 Random Glucose Lactic Acid 7.1 H* Calcium Phosphorus Magnesium Total Bilirubin AST ALT Alkaline Phosphatase Troponin I Total Protein Albumin 08/24/18 08/24/18 08/24/18 15:36 17:26 22:08 WBC RBC Hgb Hct MCV MCH MCHC RDW Plt Count MPV Absolute Neuts (auto) Neutrophils % Lymphocytes % Monocytes % Eosinophils % Basophils % Nucleated RBC % Anticoagulation Therapy Puncture Site ABG pH ABG pCO2 at Pt Temp ABG pO2 at Pt Temp ABG HCO3 ABG O2 Sat (Measured) ABG O2 Content ABG Base Excess Aiden Test VBG pH POC VBG pCO2 POC VBG pO2 Mixed VBG HCO3 O2 Delivery Device Oxygen Flow Rate Vent Mode Vent Rate Mechanical Rate Pressure Support Vent Sodium 141 Potassium 4.3 Chloride 109 H Carbon Dioxide 27 Anion Gap 5 L BUN 47 H Creatinine 2.3 H Creat Clearance w eGFR 28.25 POC Glucometer 110.97720 137.18198 Random Glucose 103 Lactic Acid Calcium 8.0 L Phosphorus Magnesium Total Bilirubin AST ALT Alkaline Phosphatase Troponin I Total Protein Albumin 08/25/18 08/25/18 08/25/18 05:15 05:15 08:20 WBC 7.7 RBC 3.07 L Hgb 8.2 L Hct 26.6 L MCV 86.8 MCH 26.7 MCHC 30.8 L RDW 18.1 H Plt Count 136 D MPV 8.7 Absolute Neuts (auto) 6.5 Neutrophils % 84.5 H Lymphocytes % 4.5 L D Monocytes % 8.5 Eosinophils % 2.0 D Basophils % 0.5 Nucleated RBC % 0 Anticoagulation Therapy Puncture Site ABG pH ABG pCO2 at Pt Temp ABG pO2 at Pt Temp ABG HCO3 ABG O2 Sat (Measured) ABG O2 Content ABG Base Excess Aiden Test VBG pH POC VBG pCO2 POC VBG pO2 Mixed VBG HCO3 O2 Delivery Device Oxygen Flow Rate Vent Mode Vent Rate Mechanical Rate Pressure Support Vent Sodium 143 Potassium 4.0 Chloride 108 H Carbon Dioxide 25 Anion Gap 9 BUN 54 H Creatinine 2.6 H Creat Clearance w eGFR 24.53 POC Glucometer Random Glucose 86 Lactic Acid 1.1 Calcium 8.3 L Phosphorus 3.6 Magnesium 1.5 L Total Bilirubin AST ALT Alkaline Phosphatase Troponin I 0.36 H Total Protein Albumin 12/31/18 08:55 WBC RBC Hgb Hct MCV MCH MCHC RDW Plt Count MPV Absolute Neuts (auto) Neutrophils % Lymphocytes % Monocytes % Eosinophils % Basophils % Nucleated RBC % Anticoagulation Therapy No Result Required. Puncture Site Right radial ABG pH 7.47 H D ABG pCO2 at Pt Temp 34.8 L D ABG pO2 at Pt Temp 169.0 H* D ABG HCO3 25.2 ABG O2 Sat (Measured) 99.8 H* ABG O2 Content 11.7 L ABG Base Excess 2.1 H Aiden Test Positive VBG pH POC VBG pCO2 POC VBG pO2 Mixed VBG HCO3 O2 Delivery Device No Result Required. Oxygen Flow Rate Yes Vent Mode No Result Required. Vent Rate No Result Required. Mechanical Rate No Result Required. Pressure Support Vent No Result Required. Sodium Potassium Chloride Carbon Dioxide Anion Gap BUN Creatinine Creat Clearance w eGFR POC Glucometer Random Glucose Lactic Acid Calcium Phosphorus Magnesium Total Bilirubin AST ALT Alkaline Phosphatase Troponin I Total Protein Albumin IMP: Acute Hypercapneic Respiratory Failure Severe Metabolic Acidosis ARF requiring HD CHF AFib with RVR Hyperkalemia Alcohol Abuse DM PLAN: SBTs as tolerated HD per Renal Strict I & O Follow CXR VTE prophylaxis Check ECHO Glycemic control ICU monitoring Dr Kumari Critical care time spent in reviewing chart, evaluating patient and formulating plan - 36 minutes.
[2018-08-25] MEDS ORDERED: MAGNESIUM SULF 50% (8.12 MEQ/2 ML-1 GM VIAL) ONE (11:28)
[2018-08-25] MEDS ORDERED: chlordiazePOXIDE HCL 25 MG CAPSULE PO PRN (12:05)
--- NOTE | 2018-08-25 12:16 | EKG ---
Test Reason : Blood Pressure : / mmHG Vent. Rate : 068 BPM Atrial Rate : 068 BPM P-R Int : 176 ms QRS Dur : 100 ms QT Int : 500 ms P-R-T Axes : 073 016 110 degrees QTc Int : 531 ms SINUS RHYTHM WITH FREQUENT PREMATURE VENTRICULAR COMPLEXES T WAVE ABNORMALITY, CONSIDER LATERAL ISCHEMIA PROLONGED QT ABNORMAL ECG WHEN COMPARED WITH ECG OF 24-AUG-2018 10:54, PREMATURE VENTRICULAR COMPLEXES ARE NOW PRESENT PREMATURE ATRIAL COMPLEXES ARE NO LONGER PRESENT T WAVE VARIATION Confirmed by JU HERZOG MD ([id number]) on 08/25/2018 12:16:44 PM Referred By: Confirmed By:JU HERZOG MD
--- NOTE | 2018-08-25 12:21 | PN ---
Physical Exam: SUBJECTIVE: Patient seen and examined OBJECTIVE: Vital Signs Period Temp Pulse Resp BP Sys/Ott Pulse Ox Last 24 Hr 97.7 F-98.9 F 58-90 1-25 103-130/65-86 100-100 GENERAL: The patient is awake, alert, and fully oriented, in no acute distress. HEAD: Normal with no signs of trauma. EYES: PERRL, extraocular movements intact, sclera anicteric, conjunctiva clear. No ptosis. ENT: Ears normal, nares patent, oropharynx clear without exudates, moist mucous membranes. NECK: Trachea midline, full range of motion, supple. LUNGS: Breath sounds equal, clear to auscultation bilaterally, no wheezes, no crackles, no accessory muscle use. HEART: Regular rate and rhythm, S1, S2 without murmur, rub or gallop. ABDOMEN: Soft, nontender, nondistended, normoactive bowel sounds, no guarding, no rebound, no hepatosplenomegaly, no masses. EXTREMITIES: 2+ pulses, warm, well-perfused, no edema. NEUROLOGICAL: Cranial nerves II through XII grossly intact. Normal speech, gait not observed. PSYCH: Normal mood, normal affect. SKIN: Warm, dry, normal turgor, no rashes or lesions noted Laboratory Results - last 24 hr 08/24/18 08/24/18 08/24/18 12:11 12:21 12:30 WBC RBC Hgb Hct MCV MCH MCHC RDW Plt Count MPV Absolute Neuts (auto) Neutrophils % Lymphocytes % Monocytes % Eosinophils % Basophils % Nucleated RBC % Anticoagulation Therapy Puncture Site Right radial ABG pH 7.03 L* ABG pCO2 at Pt Temp 52.9 H ABG pO2 at Pt Temp 122.0 H D ABG HCO3 13.1 L* ABG O2 Sat (Measured) 96.0 ABG O2 Content 12.1 L ABG Base Excess -16.8 L* Aiden Test Positive VBG pH POC VBG pCO2 POC VBG pO2 Mixed VBG HCO3 O2 Delivery Device Oxygen Flow Rate Yes Vent Mode Vent Rate Mechanical Rate Pressure Support Vent Sodium 141 Potassium 6.9 H* Chloride 111 H Carbon Dioxide 15 L Anion Gap 15 BUN 72 H Creatinine 3.5 H Creat Clearance w eGFR 17.40 POC Glucometer 77.80704 Random Glucose 58 L Lactic Acid Calcium 9.0 Phosphorus Magnesium Total Bilirubin 1.4 H AST 170 H ALT 71 H Alkaline Phosphatase 91 Troponin I Total Protein 8.4 H Albumin 3.6 08/24/18 08/24/18 08/24/18 13:00 13:21 15:30 WBC RBC Hgb Hct MCV MCH MCHC RDW Plt Count MPV Absolute Neuts (auto) Neutrophils % Lymphocytes % Monocytes % Eosinophils % Basophils % Nucleated RBC % Anticoagulation Therapy Puncture Site ABG pH ABG pCO2 at Pt Temp ABG pO2 at Pt Temp ABG HCO3 ABG O2 Sat (Measured) ABG O2 Content ABG Base Excess Aiden Test VBG pH 7.25 L POC VBG pCO2 40.8 POC VBG pO2 60.1 H Mixed VBG HCO3 17.4 L O2 Delivery Device Oxygen Flow Rate Vent Mode Vent Rate Mechanical Rate Pressure Support Vent Sodium Potassium Chloride Carbon Dioxide Anion Gap BUN Creatinine Creat Clearance w eGFR POC Glucometer 79.70525 Random Glucose Lactic Acid 7.1 H* Calcium Phosphorus Magnesium Total Bilirubin AST ALT Alkaline Phosphatase Troponin I Total Protein Albumin 08/24/18 08/24/18 08/24/18 15:36 17:26 22:08 WBC RBC Hgb Hct MCV MCH MCHC RDW Plt Count MPV Absolute Neuts (auto) Neutrophils % Lymphocytes % Monocytes % Eosinophils % Basophils % Nucleated RBC % Anticoagulation Therapy Puncture Site ABG pH ABG pCO2 at Pt Temp ABG pO2 at Pt Temp ABG HCO3 ABG O2 Sat (Measured) ABG O2 Content ABG Base Excess Aiden Test VBG pH POC VBG pCO2 POC VBG pO2 Mixed VBG HCO3 O2 Delivery Device Oxygen Flow Rate Vent Mode Vent Rate Mechanical Rate Pressure Support Vent Sodium 141 Potassium 4.3 Chloride 109 H Carbon Dioxide 27 Anion Gap 5 L BUN 47 H Creatinine 2.3 H Creat Clearance w eGFR 28.25 POC Glucometer 110.00958 137.91320 Random Glucose 103 Lactic Acid Calcium 8.0 L Phosphorus Magnesium Total Bilirubin AST ALT Alkaline Phosphatase Troponin I Total Protein Albumin 08/25/18 08/25/18 08/25/18 05:15 05:15 08:20 WBC 7.7 RBC 3.07 L Hgb 8.2 L Hct 26.6 L MCV 86.8 MCH 26.7 MCHC 30.8 L RDW 18.1 H Plt Count 136 D MPV 8.7 Absolute Neuts (auto) 6.5 Neutrophils % 84.5 H Lymphocytes % 4.5 L D Monocytes % 8.5 Eosinophils % 2.0 D Basophils % 0.5 Nucleated RBC % 0 Anticoagulation Therapy Puncture Site ABG pH ABG pCO2 at Pt Temp ABG pO2 at Pt Temp ABG HCO3 ABG O2 Sat (Measured) ABG O2 Content ABG Base Excess Aiden Test VBG pH POC VBG pCO2 POC VBG pO2 Mixed VBG HCO3 O2 Delivery Device Oxygen Flow Rate Vent Mode Vent Rate Mechanical Rate Pressure Support Vent Sodium 143 Potassium 4.0 Chloride 108 H Carbon Dioxide 25 Anion Gap 9 BUN 54 H Creatinine 2.6 H Creat Clearance w eGFR 24.53 POC Glucometer Random Glucose 86 Lactic Acid 1.1 Calcium 8.3 L Phosphorus 3.6 Magnesium 1.5 L Total Bilirubin AST ALT Alkaline Phosphatase Troponin I 0.36 H Total Protein Albumin 08/25/18 08:55 WBC RBC Hgb Hct MCV MCH MCHC RDW Plt Count MPV Absolute Neuts (auto) Neutrophils % Lymphocytes % Monocytes % Eosinophils % Basophils % Nucleated RBC % Anticoagulation Therapy No Result Required. Puncture Site Right radial ABG pH 7.47 H D ABG pCO2 at Pt Temp 34.8 L D ABG pO2 at Pt Temp 169.0 H* D ABG HCO3 25.2 ABG O2 Sat (Measured) 99.8 H* ABG O2 Content 11.7 L ABG Base Excess 2.1 H Aiden Test Positive VBG pH POC VBG pCO2 POC VBG pO2 Mixed VBG HCO3 O2 Delivery Device No Result Required. Oxygen Flow Rate Yes Vent Mode No Result Required. Vent Rate No Result Required. Mechanical Rate No Result Required. Pressure Support Vent No Result Required. Sodium Potassium Chloride Carbon Dioxide Anion Gap BUN Creatinine Creat Clearance w eGFR POC Glucometer Random Glucose Lactic Acid Calcium Phosphorus Magnesium Total Bilirubin AST ALT Alkaline Phosphatase Troponin I Total Protein Albumin Active Medications Generic Name Dose Route Start Last Admin Trade Name Freq PRN Reason Stop Dose Admin Aspirin 81 mg 08/23/18 19:15 08/25/18 09:14 Asa - PO 81 mg DAILY ALEAH Administration Folic Acid 1 mg 08/23/18 19:15 08/25/18 09:14 Folic Acid - PO 1 mg DAILY ALEAH Administration Heparin Sodium (Porcine) 5,000 unit 08/23/18 22:00 08/25/18 06:23 Heparin - SQ 5,000 unit TID ALEAH Administration Propofol 1,000,000 mcg in 100 mls @ 3.742 mls/hr 08/24/18 09:00 08/25/18 09: 14 Diprivan - IVPB 10 mcg/kg/min TITR ALEAH 7.484 mls/hr Administration Protocol 5 MCG/KG/MIN Fentanyl 500 mcg/ Dextrose 100 mls @ 10 mls/hr 08/24/18 10:30 08/25/18 05:10 IVPB 25 mcg/hr TITR ALEAH 5 mls/hr Administration Protocol 50 MCG/HR Sodium Chloride 250 mls @ 3,000 mls/hr 08/24/18 14:22 Normal Saline - IV 08/25/18 14:22 PRN PRN Hypotension during Dialysis Metoprolol Tartrate 25 mg 08/23/18 22:00 08/25/18 09:14 Lopressor - PO 25 mg BID ALEAH Administration Pantoprazole Sodium 40 mg 08/24/18 11:45 08/25/18 09:14 Protonix Iv IVPUSH 40 mg DAILY ALEAH Administration Thiamine HCl 100 mg 08/23/18 19:15 08/25/18 09:14 Vitamin B1 - PO 100 mg DAILY ALEAH Administration ASSESSMENT/PLAN: 68 y/o M w/ PMHx CAD s/p AICD, CHF, EtOH abuse, Hep C, Afib, DM, anemia, presented from [facility] d/t AMS. 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 #Acute hypercapneic resp failure/acute metabolic acidosis -multifactorial: CHF, substance abuse, renal failure, metformin use -ABG at time of intubation showing severe mixed acidosis -ABG normalized this AM -successfully extubated and maintaining saturation on 40% venti mask #nephrology -right femoral dialysis catheter placed and HD performed yesterday -electrolyte abnormalities corrected -nephrology following, fluids and further HD as per their recommendations -f/u renal US #CV -cardiology following -currently in sinus rhythm, recommend b-mirella rather than CCB if afib recurs -troponemia likely 2/2 demand ischemia, will trend -echo results pending #FEN -IVF as per nephrology -monitor electrolytes, HD as per nephrology -renal diet when alert and oriented #PPx -DVT: heparin subq -GI: IV protonix #code -full #dispo -continue to monitor in ICU Visit type - Emergency Visit Emergency Visit: No - New Patient This patient is new to me today: Yes Date on this admission: 08/25/18 - Critical Care Critical Care patient: Yes Total Critical Care Time (in minutes): 40 Critical Care Statement: The care of this patient involved high complexity decision making to prevent further life threatening deterioration of the patient 's condition and/or to evaluate & treat vital organ system(s) failure or risk of failure.
[2018-08-25] MEDS ORDERED: FUROSEMIDE 40 MG/4 ML INJECTABLE VIAL IVPUSH ONE (13:56)
--- NOTE | 2018-08-25 14:45 | ECHO ---
Name: NITHIN AYALA JR Exam:Adult Echocardiogram Study Date: 08/25/2018 09:14 AM Age: 68 yrs Reason For Study: LV Function Height: 72 in Weight: 230 lb BSA: 2.3 m2 Doppler Measurements & Calculations MR max irasema: 496.3 cm/sec TR max irasema: 342.7 cm/sec MR max P.5 mmHg TR max P.6 mmHg Procedure A complete two-dimensional transthoracic echocardiogram was performed (2D, M-mode, Doppler and color flow Doppler). Technically limited study. Left Ventricle The left ventricle is normal in size. Left ventricular systolic function is moderate to severely redu isabella. Ejection Fraction = 35-40%. There is moderate to severe global hypokinesis of the left ventricle. Right Ventricle The right ventricle is normal size. There is a pacemaker lead in the right ventricle. The right ventr icular systolic function is normal. Atria The left atrium is moderately dilated. The right atrium is moderately dilated. Mitral Valve There is mild mitral valve thickening. There is mild mitral annular calcification. There is moderate mitral regurgitation. Tricuspid Valve The tricuspid valve is normal in structure and function. There is moderate tricuspid regurgitation. P ulmonary artery systolic pressure is at least 69 mmHg assuming RA pressure of 3 mmHg. Aortic Valve There is mild aortic sclerosis.;. No aortic regurgitation is present. Pulmonic Valve The pulmonic valve is not well visualized. Great Vessels The aortic root is normal size. Mildly dilated ascending aorta. Pericardium/Pleura There is no pericardial effusion. Interpretation Summary Technically limited study The left ventricle is normal in size. Left ventricular systolic function is moderate to severely reduced. There is moderate to severe global hypokinesis of the left ventricle. Ejection Fraction = 35-40%. There is a pacemaker/ICD lead in the right ventricle. The left atrium is moderately dilated. The right atrium is moderately dilated. There is mild mitral valve thickening. There is mild mitral annular calcification. There is moderate mitral regurgitation. There is moderate tricuspid regurgitation. Pulmonary artery systolic pressure is at least 69 mmHg assuming RA pressure of 3 mmHg There is mild aortic sclerosis. No aortic regurgitation is present. The aortic root is normal size. Mildly dilated ascending aorta. (3.6 cm) There is no pericardial effusion. When compared to study dated 08/18/18, likely no significant changes Babak Briggs MD 08/25/2018 02:45 PM
--- NOTE | 2018-08-25 16:36 | PN ---
Progress Note, Physician History of Present Illness: Pt seen and examined at bedside. He was just extubated. He is making urine. He tolerated HD yesterday. - Current Medication List Current Medications: Active Medications Aspirin (Asa -) 81 mg PO DAILY [facility] Last Admin: 08/25/18 09:14 Dose: 81 mg Chlordiazepoxide HCl (Librium -) 25 mg PO Q6H PRN PRN Reason: AGITATION Last Admin: 08/25/18 12:24 Dose: 25 mg Folic Acid (Folic Acid -) 1 mg PO DAILY [facility] Last Admin: 08/25/18 09:14 Dose: 1 mg Heparin Sodium (Porcine) (Heparin -) 5,000 unit SQ TID [facility] Last Admin: 08/25/18 15:28 Dose: 5,000 unit Sodium Chloride (Normal Saline -) 250 mls @ 3,000 mls/hr IV PRN PRN PRN Reason: Hypotension during Dialysis Stop: 08/25/18 14:22 Metoprolol Tartrate (Lopressor -) 25 mg PO BID [facility] Last Admin: 08/25/18 09:14 Dose: 25 mg Pantoprazole Sodium (Protonix Iv) 40 mg IVPUSH DAILY [facility] Last Admin: 08/25/18 09:14 Dose: 40 mg Thiamine HCl (Vitamin B1 -) 100 mg PO DAILY [facility] Last Admin: 08/25/18 09:14 Dose: 100 mg - Objective Vital Signs: Vital Signs Temperature 99 F 08/25/18 12:00 Pulse Rate 68 08/25/18 12:00 Respiratory Rate 1 L 08/25/18 12:00 Blood Pressure 126/92 08/25/18 12:00 O2 Sat by Pulse Oximetry (%) 100 08/25/18 09:00 Constitutional: Yes: Calm Eyes: Yes: Conjunctiva Clear HENT: Yes: Atraumatic Cardiovascular: Yes: S1, S2 Respiratory: Yes: On Venti-Mask Gastrointestinal: Yes: Soft, Abdomen, Obese Genitourinary: Yes: Syed Present Musculoskeletal: Yes: Muscle Weakness Edema: Yes Edema: LLE: 1+, RLE: 1+ Neurological: Yes: Lethargy Labs: CBC, BMP 08/25/18 05:15 08/25/18 05:15 INR, PTT INR 1.67 (0.83-1.09) H 08/23/18 16:22 - ....Imaging Chest X-ray: Report Reviewed Problem List - Problems (1) NAS (acute kidney injury) Code(s): N17.9 - ACUTE KIDNEY FAILURE, UNSPECIFIED (2) CHF (congestive heart failure) Code(s): I50.9 - HEART FAILURE, UNSPECIFIED Qualifiers: Heart failure type: unspecified Heart failure chronicity: unspecified Qualified Code(s): I50.9 - Heart failure, unspecified (3) Alcohol dependence Code(s): F10.20 - ALCOHOL DEPENDENCE, UNCOMPLICATED Qualifiers: Substance use status: uncomplicated Qualified Code(s): F10.20 - Alcohol dependence, uncomplicated (4) Afib Code(s): I48.91 - UNSPECIFIED ATRIAL FIBRILLATION (5) Anemia Code(s): D64.9 - ANEMIA, UNSPECIFIED Qualifiers: Anemia type: iron deficiency (6) Chronic kidney disease Code(s): N18.9 - CHRONIC KIDNEY DISEASE, UNSPECIFIED Qualifiers: Chronic kidney disease stage: stage 2 (mild) Qualified Code(s): N18.2 - Chronic kidney disease, stage 2 (mild) (7) DM type 2 (diabetes mellitus, type 2) Code(s): E11.9 - TYPE 2 DIABETES MELLITUS WITHOUT COMPLICATIONS Qualifiers: Diabetes mellitus complication status: with unspecified complications (8) HTN (hypertension) Code(s): I10 - ESSENTIAL (PRIMARY) HYPERTENSION Qualifiers: Hypertension type: essential hypertension Qualified Code(s): I10 - Essential (primary) hypertension Assessment/Plan Current Medications Generic Name Dose Route Start Last Admin Trade Name Freq PRN Reason Stop Dose Admin Aspirin 81 mg 08/23/18 19:15 08/25/18 09:14 Asa - PO 81 mg DAILY ALEAH Administration Chlordiazepoxide HCl 25 mg 08/25/18 12:05 08/25/18 12:24 Librium - PO 25 mg Q6H PRN Administration AGITATION Folic Acid 1 mg 08/23/18 19:15 08/25/18 09:14 Folic Acid - PO 1 mg DAILY ALEAH Administration Heparin Sodium (Porcine) 5,000 unit 08/23/18 22:00 08/25/18 15:28 Heparin - SQ 5,000 unit TID ALEAH Administration Sodium Chloride 250 mls @ 3,000 mls/hr 08/24/18 14:22 Normal Saline - IV 08/25/18 14:22 PRN PRN Hypotension during Dialysis Metoprolol Tartrate 25 mg 08/23/18 22:00 08/25/18 09:14 Lopressor - PO 25 mg BID ALEAH Administration Pantoprazole Sodium 40 mg 08/24/18 11:45 08/25/18 09:14 Protonix Iv IVPUSH 40 mg DAILY ALEAH Administration Thiamine HCl 100 mg 08/23/18 19:15 08/25/18 09:14 Vitamin B1 - PO 100 mg DAILY ALEAH Administration Laboratory Tests 08/24/18 08/24/18 08/25/18 12:30 13:00 05:15 Potassium 6.9 H* 4.0 Lactic Acid 7.1 H* 08/25/18 08:20 Potassium Lactic Acid 1.1 Impression 1. NAS 2. CKD 3. hyperkalemia 4. lactic acidosis 5. metformin use 6. etoh abuse 7. CHF 8. DM 9. a-fib 10. anemia Plan - potassium stable - lactic acid improved - monitor urine output - give a dose of lasix - pt tolerated HD last night - will evaluate for HD again tomorrow - do not restart metformin - monitor blood sugar - monitor pulse ox - cont ICU care Dr Flores
[2018-08-25] MEDS: METOPROLOL TARTRATE 5 MG/5 ML VIAL IVPUSH PRN (22:09)
[2018-08-26] MEDS: HEPARIN NA (PORCINE) 5,000 UNITS/ML 1ML VIAL SQ SCH ×3 (06:02→22:54)
[2018-08-26 06:18] LABS: BASO % 0.4 % (0-2.0); EOS % 1.4 % (0-4.5); HEMATOCRIT 28.8 % (35.4-49); HEMOGLOBIN 8.8 GM/dL (11.7-16.9); LYMPH % 7.9 % (8-40); MCH 26.8 pg (25.7-33.7); MCHC 30.6 g/dl (32.0-35.9); MEAN CELL VOLUME 87.4 fl (80-96); MEAN PLT VOLUME 8.7 fl (7.5-11.1); MONO % 13.9 % (3.8-10.2); NEUT % 76.4 % (42.8-82.8); PLATELET COUNT 150 K/MM3 (134-434); RBC 3.29 M/mm3 (4.00-5.60); RDW 18.4 % (11.9-15.9); WHITE BLOOD COUNT 8.9 K/mm3 (4.0-10.0)
[2018-08-26] MEDS: METOPROLOL TARTRATE 5 MG/5 ML VIAL IVPUSH PRN ×5 (06:30→20:09)
[2018-08-26 06:34] LABS: ALBUMIN 3.2 g/dl (3.4-5.0); ALK PHOS 88 U/L (45-117); ANION GAP 9 MMOL/L (8-16); BILIRUBIN,TOTAL 1.2 mg/dL (0.2-1); BLOOD UREA NITROGEN 58 mg/dL (7-18); CALCIUM 8.5 mg/dL (8.5-10.1); CHLORIDE 108 mmol/L (98-107); CO2 26 mmol/L (21-32); CREATININE 2.5 mg/dL (0.55-1.3); GLUCOSE,RANDOM 100 mg/dL (74-106); MAGNESIUM 1.7 mg/dL (1.8-2.4); POTASSIUM 4.1 mmol/L (3.5-5.1); SGOT/AST 719 U/L (15-37); SGPT/ALT 519 U/L (13-61); SODIUM 144 mmol/L (136-145); TOT PROT 7.8 g/dl (6.4-8.2)
[2018-08-26] MEDS ORDERED: LORazepam 2 MG/ML SDV VIAL IVPUSH PRN (07:20)
[2018-08-26] MEDS ORDERED: MAGNESIUM 2GM/50ML STERILE WATER IVPB IVPB ONE (07:24)
[2018-08-26] MEDS ORDERED: MAGNESIUM SULF 50% (8.12 MEQ/2 ML-1 GM VIAL) IVPB ONE (09:15)
[2018-08-26] MEDS: ASPIRIN 81 MG CHEWABLE TABLETS PO SCH (09:48)
[2018-08-26] MEDS: FOLIC ACID 1 MG TABLET (FP) PO SCH (09:48)
[2018-08-26] MEDS: THIAMINE HCL 100 MG TABLET (FP) PO SCH (09:48)
[2018-08-26] MEDS: PANTOPRAZOLE SODIUM 40 MG VIAL IVPUSH SCH (09:48)
--- NOTE | 2018-08-26 09:56 | PN ---
Teaching Attending Note Name of Resident: Bakari Rose ATTENDING PHYSICIAN STATEMENT I saw and evaluated the patient. I reviewed the resident's note and discussed the case with the resident. I agree with the resident's findings and plan as documented. SUBJECTIVE: Patient seen and examined in the ICU. Extubated. Lethargic. Awakens and becomes agitated to sternal rub. No pressors. Noted elevation in LFTs. CXR: rotated, Right diaphragm better visualized Intake & Output 08/23/18 08/24/18 08/25/18 08/26/18 23:59 23:59 23:59 23:59 Intake Total 471 320 Output Total 989 443 1561 1000 Balance -200 -329 -930 -1000 Weight 275 lb 230 lb 9 oz 230 lb Last Vital Signs Temp Pulse Resp BP Pulse Ox 98.7 F 108 H 18 140/96 97 08/26/18 07:59 08/26/18 09:00 08/26/18 09:00 08/26/18 09:00 08/26/18 07:59 Active Medications Aspirin (Asa -) 81 mg PO DAILY [facility] Last Admin: 08/26/18 09:48 Dose: Not Given Folic Acid (Folic Acid -) 1 mg PO DAILY [facility] Last Admin: 08/26/18 09:48 Dose: Not Given Heparin Sodium (Porcine) (Heparin -) 5,000 unit SQ TID [facility] Last Admin: 08/26/18 06:02 Dose: Not Given Sodium Chloride (Normal Saline -) 250 mls @ 3,000 mls/hr IV PRN PRN PRN Reason: Hypotension during Dialysis Stop: 08/25/18 14:22 Lorazepam (Ativan Injection -) 1 mg IVPUSH Q8H PRN PRN Reason: AGITATION Last Admin: 08/26/18 08:29 Dose: 1 mg Metoprolol Tartrate (Lopressor Injection -) 5 mg IVPUSH Q3H PRN PRN Reason: TACHYCARDIA Last Admin: 08/26/18 08:39 Dose: 5 mg Metoprolol Tartrate (Lopressor -) 25 mg PO BID [facility] Last Admin: 08/26/18 09:48 Dose: Not Given Pantoprazole Sodium (Protonix Iv) 40 mg IVPUSH DAILY [facility] Last Admin: 08/26/18 09:48 Dose: 40 mg Thiamine HCl (Vitamin B1 -) 100 mg PO DAILY [facility] Last Admin: 08/26/18 09:48 Dose: Not Given PE: GEN: Extubated, lethargic HEENT: PERRL, neck supple, no LAD PULM: Scattered bibasilar coarse crackles CV: 3/6 MICAH at LSB, irregular ABD: soft, NT, ND EXT: trace edema, cool ext, + pulses Neuro: Awakes to sternal rub, non-focal Laboratory Results - last 24 hr 08/25/18 08/25/18 08/25/18 05:07 12:01 17:20 WBC RBC Hgb Hct MCV MCH MCHC RDW Plt Count MPV Absolute Neuts (auto) Neutrophils % Lymphocytes % Monocytes % Eosinophils % Basophils % Nucleated RBC % Sodium Potassium Chloride Carbon Dioxide Anion Gap BUN Creatinine Creat Clearance w eGFR POC Glucometer 114.38040 120.07549 Random Glucose Calcium Phosphorus Magnesium Total Bilirubin AST ALT Alkaline Phosphatase Troponin I 0.32 H Total Protein Albumin 08/25/18 08/26/18 08/26/18 17:25 00:35 05:15 WBC 8.9 RBC 3.29 L Hgb 8.8 L Hct 28.8 L MCV 87.4 MCH 26.8 MCHC 30.6 L RDW 18.4 H Plt Count 150 MPV 8.7 Absolute Neuts (auto) 6.8 Neutrophils % 76.4 Lymphocytes % 7.9 L D Monocytes % 13.9 H Eosinophils % 1.4 Basophils % 0.4 Nucleated RBC % 0 Sodium Potassium Chloride Carbon Dioxide Anion Gap BUN Creatinine Creat Clearance w eGFR POC Glucometer 110.60080 118.93036 Random Glucose Calcium Phosphorus Magnesium Total Bilirubin AST ALT Alkaline Phosphatase Troponin I Total Protein Albumin 08/26/18 08/26/18 05:15 05:15 WBC RBC Hgb Hct MCV MCH MCHC RDW Plt Count MPV Absolute Neuts (auto) Neutrophils % Lymphocytes % Monocytes % Eosinophils % Basophils % Nucleated RBC % Sodium 144 Potassium 4.1 Chloride 108 H Carbon Dioxide 26 Anion Gap 9 BUN 58 H Creatinine 2.5 H Creat Clearance w eGFR 25.66 POC Glucometer Random Glucose 100 Calcium 8.5 Phosphorus 4.0 Magnesium 1.7 L Total Bilirubin 1.2 H AST 719 H ALT 519 H Alkaline Phosphatase 88 Troponin I 0.28 H Cancelled Total Protein 7.8 Albumin 3.2 L IMP: Acute Hypercapneic Respiratory Failure Severe Metabolic Acidosis ARF requiring HD CHF AFib with RVR Hyperkalemia Alcohol Abuse DM Elevated LFTs: etiology to be determined PLAN: VM O2 RUQ US GI evaluation Aspiration precautions HD per Renal Strict I & O VTE prophylaxis Glycemic control ICU monitoring due to tenuous status Dr Kumari Critical care time spent in reviewing chart, evaluating patient and formulating plan - 36 minutes.
[2018-08-26] MEDS ORDERED: METOPROLOL TARTRATE 25 MG TABLET (FP) PO SCH (10:00)
--- NOTE | 2018-08-26 10:12 | PN ---
Progress Note (short form) - Note Progress Note: Subjective: agitated earlier, received ativan , lethargic now . Objective: Vital Signs: Last Vital Signs Temp Pulse Resp BP Pulse Ox 98.7 F 108 H 18 140/96 97 08/26/18 07:59 08/26/18 09:00 08/26/18 09:00 08/26/18 09:00 08/26/18 07:59 Laboratory Results - last 24 hr 08/25/18 08/25/18 08/25/18 05:07 12:01 17:20 WBC RBC Hgb Hct MCV MCH MCHC RDW Plt Count MPV Absolute Neuts (auto) Neutrophils % Lymphocytes % Monocytes % Eosinophils % Basophils % Nucleated RBC % Sodium Potassium Chloride Carbon Dioxide Anion Gap BUN Creatinine Creat Clearance w eGFR POC Glucometer 114.63326 120.49133 Random Glucose Calcium Phosphorus Magnesium Total Bilirubin AST ALT Alkaline Phosphatase Troponin I 0.32 H Total Protein Albumin 08/25/18 08/26/18 08/26/18 17:25 00:35 05:15 WBC 8.9 RBC 3.29 L Hgb 8.8 L Hct 28.8 L MCV 87.4 MCH 26.8 MCHC 30.6 L RDW 18.4 H Plt Count 150 MPV 8.7 Absolute Neuts (auto) 6.8 Neutrophils % 76.4 Lymphocytes % 7.9 L D Monocytes % 13.9 H Eosinophils % 1.4 Basophils % 0.4 Nucleated RBC % 0 Sodium Potassium Chloride Carbon Dioxide Anion Gap BUN Creatinine Creat Clearance w eGFR POC Glucometer 110.80169 118.11044 Random Glucose Calcium Phosphorus Magnesium Total Bilirubin AST ALT Alkaline Phosphatase Troponin I Total Protein Albumin 08/26/18 08/26/18 05:15 05:15 WBC RBC Hgb Hct MCV MCH MCHC RDW Plt Count MPV Absolute Neuts (auto) Neutrophils % Lymphocytes % Monocytes % Eosinophils % Basophils % Nucleated RBC % Sodium 144 Potassium 4.1 Chloride 108 H Carbon Dioxide 26 Anion Gap 9 BUN 58 H Creatinine 2.5 H Creat Clearance w eGFR 25.66 POC Glucometer Random Glucose 100 Calcium 8.5 Phosphorus 4.0 Magnesium 1.7 L Total Bilirubin 1.2 H AST 719 H ALT 519 H Alkaline Phosphatase 88 Troponin I 0.28 H Cancelled Total Protein 7.8 Albumin 3.2 L Physical Exam: lethargic . round equal pupils CV: RRR, 3/6 SM at LLSB. JVD Lungs: clear lungs anteriorly Ext: 1+ pitting edema Abd: soft, hypoactive BS. reducible umbilical hernia. ASSESSMENT AND PLAN: 68 y/o man with h/o alcohol abuse, HTn, S heart failure, s/p AICD, Hep C, DM , and recent admission fro alcohol intoxication and demand ischemia discharged to [facility] on 08/18 , who was sent form [facility] for AMS . he was found to have hypoglycemia, and NAS. 1-Acute hypercapnic resp failure. resolved. now extubated . stable 2- Acute metabolic acidosis : due to NAS and metformin use. - s/p HD. will be evaluated fro HD today 3- Acute systolic CHF exacerbation: -lasix and HD - echo [id number]. 4- Transaminitis: possible shocked liver due to transient hypotension during HD. - US - GI eval - hepatitis panel 4- A fib with RVR: not able to swallow - IV BB PRN - not candidate for AC 5- Hyperkalemia: due to NAS . resolved after HD 6- Alcohol abuse: just finished detox at [facility]. but use PRN ativan fro agitation here 7- DM: was hypoglycemic. now sugar improved . hold metformin and will not resume at dc replete elctrolytes DVT PX Visit type - Emergency Visit Emergency Visit: Yes ED Registration Date: 08/23/18 Care time: The patient presented to the Emergency Department on the above date and was hospitalized for further evaluation of their emergent condition. - New Patient This patient is new to me today: No - Critical Care Critical Care patient: Yes Total Critical Care Time (in minutes): 30 Critical Care Statement: The care of this patient involved high complexity decision making to prevent further life threatening deterioration of the patient 's condition and/or to evaluate & treat vital organ system(s) failure or risk of failure.
--- NOTE | 2018-08-26 10:40 | PN ---
Physical Exam: SUBJECTIVE: Patient seen and examined at bedside. Saturating well on 40% venti mask. Lethargic, non-verbal. OBJECTIVE: Vital Signs Period Temp Pulse Resp BP Sys/Ott Pulse Ox Last 24 Hr 98.4 F-99 F 62-122 17-24 116-149/59-111 97-97 GENERAL: Lethargic, on librium/ativan, alerts to vigorous sternal rub HEAD: NC/AT EYES: PERRL ENT: MMM NECK: Trachea midline, profound JVD LUNGS: limited exam, no adventitious sounds appreciated HEART: tachycardic, irregular rhythm ABDOMEN: distant bowel sounds, soft, no pain response to palpation EXTREMITIES: 2+ pulses, warm, well-perfused, trace edema b/l NEUROLOGICAL: limited exam, moves extremities with vigorous stimulation, withdrawal plantar response Laboratory Results - last 24 hr 08/25/18 08/25/18 08/25/18 05:07 12:01 17:20 WBC RBC Hgb Hct MCV MCH MCHC RDW Plt Count MPV Absolute Neuts (auto) Neutrophils % Lymphocytes % Monocytes % Eosinophils % Basophils % Nucleated RBC % Sodium Potassium Chloride Carbon Dioxide Anion Gap BUN Creatinine Creat Clearance w eGFR POC Glucometer 114.78821 120.51677 Random Glucose Calcium Phosphorus Magnesium Total Bilirubin Direct Bilirubin AST ALT Alkaline Phosphatase Troponin I 0.32 H Total Protein Albumin 08/25/18 08/26/18 08/26/18 17:25 00:35 05:15 WBC 8.9 RBC 3.29 L Hgb 8.8 L Hct 28.8 L MCV 87.4 MCH 26.8 MCHC 30.6 L RDW 18.4 H Plt Count 150 MPV 8.7 Absolute Neuts (auto) 6.8 Neutrophils % 76.4 Lymphocytes % 7.9 L D Monocytes % 13.9 H Eosinophils % 1.4 Basophils % 0.4 Nucleated RBC % 0 Sodium Potassium Chloride Carbon Dioxide Anion Gap BUN Creatinine Creat Clearance w eGFR POC Glucometer 110.55245 118.02250 Random Glucose Calcium Phosphorus Magnesium Total Bilirubin Direct Bilirubin AST ALT Alkaline Phosphatase Troponin I Total Protein Albumin 08/26/18 08/26/18 08/26/18 05:15 05:15 05:15 WBC RBC Hgb Hct MCV MCH MCHC RDW Plt Count MPV Absolute Neuts (auto) Neutrophils % Lymphocytes % Monocytes % Eosinophils % Basophils % Nucleated RBC % Sodium 144 Potassium 4.1 Chloride 108 H Carbon Dioxide 26 Anion Gap 9 BUN 58 H Creatinine 2.5 H Creat Clearance w eGFR 25.66 POC Glucometer 114.78752 Random Glucose 100 Calcium 8.5 Phosphorus 4.0 Magnesium 1.7 L Total Bilirubin 1.2 H Direct Bilirubin Cancelled AST 719 H ALT 519 H Alkaline Phosphatase 88 Troponin I 0.28 H Cancelled Total Protein 7.8 Albumin 3.2 L 08/26/18 09:46 WBC RBC Hgb Hct MCV MCH MCHC RDW Plt Count MPV Absolute Neuts (auto) Neutrophils % Lymphocytes % Monocytes % Eosinophils % Basophils % Nucleated RBC % Sodium Potassium Chloride Carbon Dioxide Anion Gap BUN Creatinine Creat Clearance w eGFR POC Glucometer 124.54882 Random Glucose Calcium Phosphorus Magnesium Total Bilirubin Direct Bilirubin AST ALT Alkaline Phosphatase Troponin I Total Protein Albumin Active Medications Generic Name Dose Route Start Last Admin Trade Name Freq PRN Reason Stop Dose Admin Aspirin 81 mg 08/23/18 19:15 08/26/18 09:48 Asa - PO Not Given DAILY ON LICENSE OF [facility] Folic Acid 1 mg 08/23/18 19:15 08/26/18 09:48 Folic Acid - PO Not Given DAILY ON LICENSE OF [facility] Heparin Sodium (Porcine) 5,000 unit 08/23/18 22:00 08/26/18 06:02 Heparin - SQ Not Given TID ON LICENSE OF [facility] Sodium Chloride 250 mls @ 3,000 mls/hr 08/24/18 14:22 Normal Saline - IV 08/25/18 14:22 PRN PRN Hypotension during Dialysis Lorazepam 1 mg 08/26/18 07:20 08/26/18 08:29 Ativan Injection - IVPUSH 1 mg Q8H PRN Administration AGITATION Metoprolol Tartrate 5 mg 08/26/18 08:39 08/26/18 08:39 Lopressor Injection - IVPUSH 5 mg Q3H PRN Administration TACHYCARDIA Metoprolol Tartrate 25 mg 08/26/18 10:00 08/26/18 09:48 Lopressor - PO Not Given BID ON LICENSE OF [facility] Pantoprazole Sodium 40 mg 08/24/18 11:45 08/26/18 09:48 Protonix Iv IVPUSH 40 mg DAILY [facility] Administration Thiamine HCl 100 mg 08/23/18 19:15 08/26/18 09:48 Vitamin B1 - PO Not Given DAILY ON LICENSE OF [facility] ASSESSMENT/PLAN: 68 y/o M w/ PMHx CAD s/p AICD, CHF, EtOH abuse, Hep C, Afib, DM, anemia, presented from [facility] d/t AMS. 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 #acute liver failure -AST/ALT 719/519 from 170/71 yesterday -GI consulted -RUQ US -repeat LFT at 6pm -CT a/p if LFTs continue to worsen #Acute hypercapneic resp failure/acute metabolic acidosis -multifactorial: CHF, substance abuse, renal failure, metformin use -ABG at time of intubation showing severe mixed acidosis -ABG normalized, successfully extubated yesterday -maintaining saturation on 40% venti mask #nephrology -right femoral dialysis catheter placed and HD performed yesterday -electrolyte abnormalities corrected -nephrology following, fluids and further HD as per their recommendations -f/u renal US #CV -cardiology following -tachycardic with irregular rhythm at time of exam, PRN IV b-mirella per cardiology -troponemia downtrending -echo: EF 35-40%, moderate-severe LV systolic function, moderate-severe LV global hypokinesis #FEN -IVF as per nephrology -monitor electrolytes, HD as per nephrology -NPO #PPx -DVT: heparin subq -GI: IV protonix #code -full #dispo -continue to monitor in ICU Visit type - Emergency Visit Emergency Visit: No - New Patient This patient is new to me today: No - Critical Care Critical Care patient: Yes Total Critical Care Time (in minutes): 40 Critical Care Statement: The care of this patient involved high complexity decision making to prevent further life threatening deterioration of the patient 's condition and/or to evaluate & treat vital organ system(s) failure or risk of failure.
[2018-08-26 10:51] LABS: N-TERMINAL BNP 9329.8 pg/ml (5-125)
[2018-08-26] MEDS ORDERED: FUROSEMIDE 40 MG/4 ML INJECTABLE VIAL IVPUSH ONE (12:06)
--- NOTE | 2018-08-26 12:12 | PN ---
Progress Note (short form) - Note Progress Note: Per nephrology, patient has completed hemodialysis. Dialysis catheter was removed and 40mg IV Lasix administered.
--- NOTE | 2018-08-26 12:41 | PN ---
Progress Note, Physician History of Present Illness: Pt seen and examined at bedside. He remains in the ICU. He is extubated. He remains lethargic. - Current Medication List Current Medications: Active Medications Aspirin (Asa -) 81 mg PO DAILY [facility] Last Admin: 08/26/18 09:48 Dose: Not Given Folic Acid (Folic Acid -) 1 mg PO DAILY [facility] Last Admin: 08/26/18 09:48 Dose: Not Given Heparin Sodium (Porcine) (Heparin -) 5,000 unit SQ TID [facility] Last Admin: 08/26/18 06:02 Dose: Not Given Sodium Chloride (Normal Saline -) 250 mls @ 3,000 mls/hr IV PRN PRN PRN Reason: Hypotension during Dialysis Stop: 08/25/18 14:22 Lorazepam (Ativan Injection -) 1 mg IVPUSH Q8H PRN PRN Reason: AGITATION Last Admin: 08/26/18 08:29 Dose: 1 mg Metoprolol Tartrate (Lopressor Injection -) 5 mg IVPUSH Q3H PRN PRN Reason: TACHYCARDIA Last Admin: 08/26/18 08:39 Dose: 5 mg Metoprolol Tartrate (Lopressor -) 25 mg PO BID [facility] Last Admin: 08/26/18 09:48 Dose: Not Given Pantoprazole Sodium (Protonix Iv) 40 mg IVPUSH DAILY [facility] Last Admin: 08/26/18 09:48 Dose: 40 mg Thiamine HCl (Vitamin B1 -) 100 mg PO DAILY [facility] Last Admin: 08/26/18 09:48 Dose: Not Given - Objective Vital Signs: Vital Signs Temperature 98.7 F 08/26/18 07:59 Pulse Rate 101 H 08/26/18 11:00 Respiratory Rate 19 08/26/18 11:00 Blood Pressure 137/98 08/26/18 11:00 O2 Sat by Pulse Oximetry (%) 97 08/26/18 07:59 Constitutional: Yes: Calm Eyes: Yes: Conjunctiva Clear HENT: Yes: Atraumatic Cardiovascular: Yes: JVD, S1, S2 Respiratory: Yes: On Venti-Mask Gastrointestinal: Yes: Soft Genitourinary: Yes: Syed Present Musculoskeletal: Yes: Muscle Weakness Edema: Yes Edema: LLE: 1+, RLE: 1+ Neurological: Yes: Lethargy Labs: CBC, BMP 08/26/18 05:15 08/26/18 05:15 INR, PTT INR 1.67 (0.83-1.09) H 08/23/18 16:22 - ....Imaging Chest X-ray: Report Reviewed Problem List - Problems (1) NAS (acute kidney injury) Code(s): N17.9 - ACUTE KIDNEY FAILURE, UNSPECIFIED (2) CHF (congestive heart failure) Code(s): I50.9 - HEART FAILURE, UNSPECIFIED Qualifiers: Heart failure type: unspecified Heart failure chronicity: unspecified Qualified Code(s): I50.9 - Heart failure, unspecified (3) Alcohol dependence Code(s): F10.20 - ALCOHOL DEPENDENCE, UNCOMPLICATED Qualifiers: Substance use status: uncomplicated Qualified Code(s): F10.20 - Alcohol dependence, uncomplicated (4) Afib Code(s): I48.91 - UNSPECIFIED ATRIAL FIBRILLATION (5) Anemia Code(s): D64.9 - ANEMIA, UNSPECIFIED Qualifiers: Anemia type: iron deficiency (6) Chronic kidney disease Code(s): N18.9 - CHRONIC KIDNEY DISEASE, UNSPECIFIED Qualifiers: Chronic kidney disease stage: stage 2 (mild) Qualified Code(s): N18.2 - Chronic kidney disease, stage 2 (mild) (7) DM type 2 (diabetes mellitus, type 2) Code(s): E11.9 - TYPE 2 DIABETES MELLITUS WITHOUT COMPLICATIONS Qualifiers: Diabetes mellitus complication status: with unspecified complications (8) HTN (hypertension) Code(s): I10 - ESSENTIAL (PRIMARY) HYPERTENSION Qualifiers: Hypertension type: essential hypertension Qualified Code(s): I10 - Essential (primary) hypertension Assessment/Plan Current Medications Generic Name Dose Route Start Last Admin Trade Name Freq PRN Reason Stop Dose Admin Aspirin 81 mg 08/23/18 19:15 08/26/18 09:48 Asa - PO Not Given DAILY [facility] Folic Acid 1 mg 08/23/18 19:15 08/26/18 09:48 Folic Acid - PO Not Given DAILY [facility] Heparin Sodium (Porcine) 5,000 unit 08/23/18 22:00 08/26/18 06:02 Heparin - SQ Not Given TID [facility] Sodium Chloride 250 mls @ 3,000 mls/hr 08/24/18 14:22 Normal Saline - IV 08/25/18 14:22 PRN PRN Hypotension during Dialysis Lorazepam 1 mg 08/26/18 07:20 08/26/18 08:29 Ativan Injection - IVPUSH 1 mg Q8H PRN Administration AGITATION Metoprolol Tartrate 5 mg 08/26/18 08:39 08/26/18 08:39 Lopressor Injection - IVPUSH 5 mg Q3H PRN Administration TACHYCARDIA Metoprolol Tartrate 25 mg 08/26/18 10:00 08/26/18 09:48 Lopressor - PO Not Given BID [facility] Pantoprazole Sodium 40 mg 08/24/18 11:45 08/26/18 09:48 Protonix Iv IVPUSH 40 mg DAILY [facility]LE[facility] Administration Thiamine HCl 100 mg 08/23/18 19:15 08/26/18 09:48 Vitamin B1 - PO Not Given DAILY [facility] Impression 1. NAS 2. CKD 3. hyperkalemia 4. lactic acidosis 5. metformin use 6. etoh abuse 7. CHF 8. DM 9. a-fib 10. anemia Plan - d/c femoral shiley cath - give dose of lasix - repeat labs in am - potassium stable - cont to monitor renal function - no indication for HD - reviewed cxr - discussed with ICU team - do not restart metformin - monitor blood sugar - monitor pulse ox - cont ICU care Dr Flores
--- NOTE | 2018-08-26 13:48 | PN ---
Progress Note, Physician Chief Complaint: Remains in ICU extubated on O2 via Ventimask History of Present Illness: Patient was seen and examined in ICU. Chart was reviewed Hemodynamics improved AF on the monitor - Current Medication List Current Medications: Active Medications Aspirin (Asa -) 81 mg PO DAILY [facility] Last Admin: 08/26/18 09:48 Dose: Not Given Folic Acid (Folic Acid -) 1 mg PO DAILY [facility] Last Admin: 08/26/18 09:48 Dose: Not Given Heparin Sodium (Porcine) (Heparin -) 5,000 unit SQ TID [facility] Last Admin: 08/26/18 13:04 Dose: 5,000 unit Sodium Chloride (Normal Saline -) 250 mls @ 3,000 mls/hr IV PRN PRN PRN Reason: Hypotension during Dialysis Stop: 08/25/18 14:22 Lorazepam (Ativan Injection -) 1 mg IVPUSH Q8H PRN PRN Reason: AGITATION Last Admin: 08/26/18 08:29 Dose: 1 mg Metoprolol Tartrate (Lopressor Injection -) 5 mg IVPUSH Q3H PRN PRN Reason: TACHYCARDIA Last Admin: 08/26/18 13:04 Dose: 5 mg Metoprolol Tartrate (Lopressor -) 25 mg PO BID [facility] Last Admin: 08/26/18 09:48 Dose: Not Given Pantoprazole Sodium (Protonix Iv) 40 mg IVPUSH DAILY [facility] Last Admin: 08/26/18 09:48 Dose: 40 mg Thiamine HCl (Vitamin B1 -) 100 mg PO DAILY [facility] Last Admin: 08/26/18 09:48 Dose: Not Given - Objective Vital Signs: Vital Signs Temperature 98.7 F 08/26/18 07:59 Pulse Rate 99 H 08/26/18 13:04 Respiratory Rate 18 08/26/18 13:00 Blood Pressure 137/98 08/26/18 13:04 O2 Sat by Pulse Oximetry (%) 97 08/26/18 07:59 Neck: Yes: Supple Cardiovascular: Yes: Tachycardia, Pulse Irregular, S1, S2 Respiratory: Yes: Diminished, On Venti-Mask Gastrointestinal: Yes: Normal Bowel Sounds, Soft. No: Tenderness Edema: Yes Edema: LLE: Trace, RLE: Trace Labs: CBC, BMP 08/26/18 05:15 08/26/18 05:15 Problem List - Problems (1) Respiratory failure Code(s): J96.90 - RESPIRATORY FAILURE, UNSP, UNSP W HYPOXIA OR HYPERCAPNIA (2) On mechanically assisted ventilation Code(s): Z99.11 - DEPENDENCE ON RESPIRATOR [VENTILATOR] STATUS (3) NAS (acute kidney injury) Code(s): N17.9 - ACUTE KIDNEY FAILURE, UNSPECIFIED (4) CHF (congestive heart failure) Code(s): I50.9 - HEART FAILURE, UNSPECIFIED Qualifiers: Heart failure type: unspecified Heart failure chronicity: unspecified Qualified Code(s): I50.9 - Heart failure, unspecified (5) Alcohol dependence Code(s): F10.20 - ALCOHOL DEPENDENCE, UNCOMPLICATED Qualifiers: Substance use status: uncomplicated Qualified Code(s): F10.20 - Alcohol dependence, uncomplicated (6) Afib Code(s): I48.91 - UNSPECIFIED ATRIAL FIBRILLATION (7) Anemia Code(s): D64.9 - ANEMIA, UNSPECIFIED Qualifiers: Anemia type: iron deficiency (8) Chronic kidney disease Code(s): N18.9 - CHRONIC KIDNEY DISEASE, UNSPECIFIED Qualifiers: Chronic kidney disease stage: stage 2 (mild) Qualified Code(s): N18.2 - Chronic kidney disease, stage 2 (mild) (9) DM type 2 (diabetes mellitus, type 2) Code(s): E11.9 - TYPE 2 DIABETES MELLITUS WITHOUT COMPLICATIONS Qualifiers: Diabetes mellitus complication status: with unspecified complications (10) HTN (hypertension) Code(s): I10 - ESSENTIAL (PRIMARY) HYPERTENSION Qualifiers: Hypertension type: essential hypertension Qualified Code(s): I10 - Essential (primary) hypertension (11) Hep C w/o coma, chronic Code(s): B18.2 - CHRONIC VIRAL HEPATITIS C (12) ICD (implantable cardioverter-defibrillator) in place Code(s): Z95.810 - PRESENCE OF AUTOMATIC (IMPLANTABLE) CARDIAC DEFIBRILLATOR (13) Demand ischemia Code(s): I24.8 - OTHER FORMS OF ACUTE ISCHEMIC HEART DISEASE (14) Syncope Code(s): R55 - SYNCOPE AND COLLAPSE Qualifiers: Syncope type: unspecified Qualified Code(s): R55 - Syncope and collapse (15) Lactic acidosis Code(s): E87.2 - ACIDOSIS (16) Respiratory acidosis Code(s): E87.2 - ACIDOSIS (17) Metabolic acidosis Code(s): E87.2 - ACIDOSIS Assessment/Plan 1. NAS (previous history of CKD) with hyperkalemia and metabolic and respiratory acidosis s/p urgent HD - improved 2. Respiratory failure requiring intubation and mechanical ventilation now extubated 3. Change in mental status due to above acidosis and acute renal failure, rule out sepsis or mixed picture of cardiac component 4. CAD with demand ischemia 5. Ischemic cardiomyopathy s/p ICD 6. History of PAF - initially showed AF on admission and then probable AF with RVR now back in AF with variable HR 7. History of syncope due to ETOH intoxication 8. DM 9. Anemia PLAN: 1. HD as per renal service - monitor renal function. Continue ICU management 2. Monitor electrolytes 3. Trend troponin 5. Monitor rhythm and rate control. Calcium channel mirella could be used for short term rate control but not ideal for fdc management in view of severe LV systolic dysfunction. Continue Metoprolol PO (uptitrate) and then IV as needed for added rate control 6. Not an ideal candidate for presser machine anticoagulation due to ETOH use and risk of bleeding, but will reassess 7. Monitor H/H and transfuse as needed 8. Echocardiography was reviewed - moderate to severely reduced LVEF, moderate MR and TR, severe pulmonary HTN Prognosis: guarded Babak Briggs MD
--- NOTE | 2018-08-26 13:59 | CON.GI ---
Consult Consult Specialty:: GI Referred by:: Hospitalist Reason for Consultation:: Abnormal LFTs - History of Present Illness Chief Complaint: Patient somnolent, becomes agressive when asked questions. Did not provide history History of Present Illness: History from chart: 68M w/ pmhx of HTN, CAD s/p defibrillator placement, chronic Hep C, A. fib, DM, anemia was sent to the hospital from [facility] for lethargy and mental status changes found to have a glucose of 46. At [facility], pt was given orange juice and subsequently sent to the hospital. Per the admission note, the patient was denying chest pain, sob, but admitted to cough. During H&P exam he was extremely agitated threatening to leave the hospital because "nothing was wrong. " He also denied abdominal pain, urinary or bowel symptoms, nausea/vomiting. He was recently admitted to the hospital on 08/16/18 after being found on the ground outside due to a syncopal episode due to alcohol intoxication. During this previous visit, pt was seen by cardio and was not found to have any acute cardiac condition. He was discharged to [facility] for detox and continued with rehab. Asked to evaluate abnormal LFTs. Unclear if his hepatitis C has been treated Abdominal US 08/24 revealed fatty liver and normal gallbladder - History Source History Provided By: Medical Record Limitations to Obtaining History: Uncooperative - Past Medical History Cardio/Vascular: Yes: AFIB, CAD, HTN, Other (ICD for ischemic cardiomyopathy) Hepatobiliary: Yes: Hepatitis C Renal/: Yes: Renal Inusuff Endocrine: Yes: Diabetes Mellitus - Past Surgical History Past Surgical History: Yes: AICD - Alcohol/Substance Use Hx Alcohol Use: Yes - Smoking History Smoking history: Current every day smoker Have you smoked in the past 12 months: Yes Aproximately how many cigarettes per day: 10 - Social History Place of : [facility] Home Medications - Allergies Allergies/Adverse Reactions: Allergies Allergy/AdvReac Type Severity Reaction Status Date / Time No Known Allergies Allergy Verified 08/18/18 19:54 - Home Medications Home Medications: Ambulatory Orders Aspirin [ASA -] 81 mg PO DAILY tab.chew 08/18/18 Folic Acid - 1 mg PO DAILY tablet 08/18/18 Lisinopril [Prinivil] 20 mg PO DAILY tablet 08/18/18 Metoprolol Tartrate [Lopressor -] 25 mg PO BID tablet 08/18/18 Thiamine HCl [Vitamin B1 -] 100 mg PO DAILY tablet 08/18/18 Metformin HCl [Glucophage] 500 mg PO BID 08/19/18 Family Disease History - Family Disease History Family History: Unable to Obtain Review of Systems Unable to obtain ROS, reason: Patient uncooperative Physical Exam-GI Vital Signs: Vital Signs Temperature 98.7 F 08/26/18 07:59 Pulse Rate 99 H 08/26/18 13:04 Respiratory Rate 18 08/26/18 13:00 Blood Pressure 137/98 08/26/18 13:04 O2 Sat by Pulse Oximetry (%) 97 08/26/18 07:59 Constitutional: Yes: Calm (agitated when asked questions) Eyes: No: Sclera Icterus Cardiovascular: Yes: Pulse Irregular Respiratory: Yes: Diminished (at bases with poor insp effort) Gastrointestinal Inspection: Yes: Hernia (non-reducible umbilical hernia. Non tender). No: Distention ...Auscultate: Yes: Normoactive Bowel Sounds ...Palpate: No: Hepatomegaly, Splenomegaly, Tenderness (No grimacing upon palpation) ...Percussion: No: Tympanitic Edema: No (No LE edema) Labs: CBC, BMP 08/26/18 05:15 08/26/18 05:15 INR, PTT INR 1.67 (0.83-1.09) H 08/23/18 16:22 Problem List - Problems (1) Elevated liver enzymes Assessment/Plan: Predominantly hepatocellular liver dysfunction: ? secondary to passive congestion / ischemic hepatopathy. Avoid hepatotoxic agents Monitor Liver chemistries including coags Obtain histoiry regarding previous hepatitis C history. hepatitis serologies pending Code(s): R74.8 - ABNORMAL LEVELS OF OTHER SERUM ENZYMES
[2018-08-26 17:54] LABS: ALBUMIN 3.5 g/dl (3.4-5.0); BILIRUBIN,TOTAL 1.2 mg/dL (0.2-1); TOT PROT 8.3 g/dl (6.4-8.2)
[2018-08-26] MEDS: METOPROLOL TARTRATE 25 MG TABLET (FP) PO SCH (22:54)
[2018-08-27] MEDS: METOPROLOL TARTRATE 5 MG/5 ML VIAL IVPUSH PRN ×3 (01:18→12:45)
[2018-08-27] MEDS: METOPROLOL TARTRATE 25 MG TABLET (FP) PO SCH ×2 (05:21→13:16)
[2018-08-27] MEDS: HEPARIN NA (PORCINE) 5,000 UNITS/ML 1ML VIAL SQ SCH ×2 (05:21→13:18)
[2018-08-27 05:44] LABS: INR 1.54 (0.83-1.09); PROTHROMBIN TIME (PATIENT) 18.2 SEC (9.7-13.0)
[2018-08-27 05:47] LABS: ACTIVATED PTT 25.8 SECONDS (25.2-36.5)
[2018-08-27 05:49] LABS: BASO % 0.5 % (0-2.0); EOS % 0.6 % (0-4.5); HEMATOCRIT 29.6 % (35.4-49); LYMPH % 12.9 % (8-40); MCH 26.7 pg (25.7-33.7); MCHC 30.5 g/dl (32.0-35.9); MEAN CELL VOLUME 87.4 fl (80-96); MEAN PLT VOLUME 8.3 fl (7.5-11.1); PLATELET COUNT 148 K/MM3 (134-434); RBC 3.39 M/mm3 (4.00-5.60); RDW 17.9 % (11.9-15.9); WHITE BLOOD COUNT 7.7 K/mm3 (4.0-10.0)
[2018-08-27 06:03] LABS: ALBUMIN 3.1 g/dl (3.4-5.0); ALK PHOS 84 U/L (45-117); ANION GAP 9 MMOL/L (8-16); BILIRUBIN,TOTAL 1.3 mg/dL (0.2-1); BLOOD UREA NITROGEN 69 mg/dL (7-18); CALCIUM 8.8 mg/dL (8.5-10.1); CHLORIDE 110 mmol/L (98-107); CO2 25 mmol/L (21-32); CREATININE 2.4 mg/dL (0.55-1.3); GLUCOSE,RANDOM 92 mg/dL (74-106); PHOSPHOROUS 4.8 mg/dL (2.5-4.9); POTASSIUM 4.4 mmol/L (3.5-5.1); SGOT/AST 526 U/L (15-37); SGPT/ALT 455 U/L (13-61); SODIUM 144 mmol/L (136-145); TOT PROT 7.7 g/dl (6.4-8.2)
[2018-08-27] MEDS ORDERED: dilTIAZem HCL 25 MG/5 ML - 5 ML VIAL IVPUSH ONE (07:50)
--- NOTE | 2018-08-27 08:00 | PN ---
Physical Exam: SUBJECTIVE: Patient seen and examined at bedside. Saturating well on 40% venti mask. Lethargic, non-verbal, agitated when stimulated OBJECTIVE: Vital Signs Period Temp Pulse Resp BP Sys/Ott Pulse Ox Last 24 Hr 98.1 F-98.9 F 94-155 16-20 137-162/96-128 97-100 GENERAL: Lethargic, on ativan, alerts and becomes agitaqted to vigorous sternal rub HEAD: NC/AT EYES: PERRL ENT: MMM NECK: Trachea midline, profound JVD LUNGS: limited exam, no adventitious sounds appreciated, breathing is irregular with heavy secretions and accessory muscle use but maintaining saturation HEART: tachycardic, irregular rhythm ABDOMEN: distant bowel sounds, soft, no pain response to palpation EXTREMITIES: 2+ pulses, warm, well-perfused, trace edema b/l NEUROLOGICAL: limited exam, moves extremities with vigorous stimulation, withdrawal plantar response Laboratory Results - last 24 hr 08/26/18 08/26/18 08/26/18 05:15 05:15 09:46 WBC RBC Hgb Hct MCV MCH MCHC RDW Plt Count MPV Absolute Neuts (auto) Neutrophils % Lymphocytes % Monocytes % Eosinophils % Basophils % Nucleated RBC % PT with INR INR PTT (Actin FS) Sodium 144 Potassium 4.1 Chloride 108 H Carbon Dioxide 26 Anion Gap 9 BUN 58 H Creatinine 2.5 H Creat Clearance w eGFR 25.66 POC Glucometer 114.42261 124.20671 Random Glucose 100 Calcium 8.5 Phosphorus 4.0 Magnesium 1.7 L Total Bilirubin 1.2 H Direct Bilirubin Cancelled AST 719 H ALT 519 H Alkaline Phosphatase 88 Troponin I 0.28 H B-Natriuretic Peptide 9329.8 H Total Protein 7.8 Albumin 3.2 L 08/26/18 08/26/18 08/27/18 15:56 17:00 00:23 WBC RBC Hgb Hct MCV MCH MCHC RDW Plt Count MPV Absolute Neuts (auto) Neutrophils % Lymphocytes % Monocytes % Eosinophils % Basophils % Nucleated RBC % PT with INR INR PTT (Actin FS) Sodium Potassium Chloride Carbon Dioxide Anion Gap BUN Creatinine Creat Clearance w eGFR POC Glucometer 117.94894 109.12465 Random Glucose Calcium Phosphorus Magnesium Total Bilirubin 1.2 H Direct Bilirubin 1.0 H AST 598 H ALT 495 H Alkaline Phosphatase 92 Troponin I B-Natriuretic Peptide Total Protein 8.3 H Albumin 3.5 08/27/18 08/27/18 08/27/18 05:15 05:15 05:15 WBC 7.7 RBC 3.39 L Hgb 9.0 L Hct 29.6 L MCV 87.4 MCH 26.7 MCHC 30.5 L RDW 17.9 H Plt Count 148 MPV 8.3 Absolute Neuts (auto) 5.5 Neutrophils % 72.0 Lymphocytes % 12.9 D Monocytes % 14.0 H Eosinophils % 0.6 Basophils % 0.5 Nucleated RBC % 0 PT with INR 18.20 H INR 1.54 H PTT (Actin FS) 25.8 Sodium 144 Potassium 4.4 Chloride 110 H Carbon Dioxide 25 Anion Gap 9 BUN 69 H Creatinine 2.4 H Creat Clearance w eGFR 26.90 POC Glucometer Random Glucose 92 Calcium 8.8 Phosphorus 4.8 Magnesium 2.0 Total Bilirubin 1.3 H Direct Bilirubin AST 526 H ALT 455 H Alkaline Phosphatase 84 Troponin I B-Natriuretic Peptide Total Protein 7.7 Albumin 3.1 L 08/27/18 05:17 WBC RBC Hgb Hct MCV MCH MCHC RDW Plt Count MPV Absolute Neuts (auto) Neutrophils % Lymphocytes % Monocytes % Eosinophils % Basophils % Nucleated RBC % PT with INR INR PTT (Actin FS) Sodium Potassium Chloride Carbon Dioxide Anion Gap BUN Creatinine Creat Clearance w eGFR POC Glucometer 118.13123 Random Glucose Calcium Phosphorus Magnesium Total Bilirubin Direct Bilirubin AST ALT Alkaline Phosphatase Troponin I B-Natriuretic Peptide Total Protein Albumin Active Medications Generic Name Dose Route Start Last Admin Trade Name Freq PRN Reason Stop Dose Admin Aspirin 81 mg 08/23/18 19:15 08/26/18 09:48 Asa - PO Not Given DAILY [facility] Folic Acid 1 mg 08/23/18 19:15 08/26/18 09:48 Folic Acid - PO Not Given DAILY [facility] Heparin Sodium (Porcine) 5,000 unit 08/23/18 22:00 08/27/18 05:21 Heparin - SQ 5,000 unit TID [facility]LE[facility] Administration Sodium Chloride 250 mls @ 3,000 mls/hr 08/24/18 14:22 Normal Saline - IV 08/25/18 14:22 PRN PRN Hypotension during Dialysis Lorazepam 1 mg 08/26/18 07:20 08/26/18 08:29 Ativan Injection - IVPUSH 1 mg Q8H PRN Administration AGITATION Metoprolol Tartrate 5 mg 08/26/18 08:39 08/27/18 01:18 Lopressor Injection - IVPUSH 5 mg Q3H PRN Administration TACHYCARDIA Metoprolol Tartrate 25 mg 08/26/18 22:00 08/27/18 05:21 Lopressor - PO Not Given TID ALEAH Pantoprazole Sodium 40 mg 08/24/18 11:45 08/26/18 09:48 Protonix Iv IVPUSH 40 mg DAILY [facility] Administration Thiamine HCl 100 mg 08/23/18 19:15 08/26/18 09:48 Vitamin B1 - PO Not Given DAILY [facility] ASSESSMENT/PLAN: 68 y/o M w/ PMHx CAD s/p AICD, CHF, EtOH abuse, Hep C, Afib, DM, anemia, presented from [facility] d/t [facility]. 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 #acute liver failure -AST/ALT remain elevated but downtrending -hepatitis serologies pending -GI consulted -RUQ US showing diffuse fatty liver -monitor LFTs and coags #Acute hypercapneic resp failure/acute metabolic acidosis -multifactorial: CHF, substance abuse, renal failure, metformin use -ABG at time of intubation showing severe mixed acidosis -ABG normalized, successfully extubated yesterday -maintaining saturation on 40% venti mask #nephrology -completed dialysis, catheter removed, Lasix as per nephro -electrolyte abnormalities corrected -nephrology following -renal US benign #CV -cardiology following -per cardiology, b-mirella for assisted rate control, CCB can be given short term if tachycardia is uncontrolled but inappropriate for long-term use given LV dysfunction -PO amlodipine via NGT -troponemia downtrended -echo: EF 35-40%, moderate-severe LV systolic function, moderate-severe LV global hypokinesis -not an AC candidate #GI -NGT placement for PO meds and tube feeds #neuro -ammonia level pending -loading PO thiamine 500mg q8h x 3days (day 1/3), then 500mg daily #FEN -IVF as per nephrology -monitor electrolytes, HD as per nephrology -glucerna tube feeds #PPx -DVT: heparin subq -GI: not indicated at this time #code -full #dispo -continue to monitor in ICU Visit type - Emergency Visit Emergency Visit: No - New Patient This patient is new to me today: No - Critical Care Critical Care patient: Yes Total Critical Care Time (in minutes): 40 Critical Care Statement: The care of this patient involved high complexity decision making to prevent further life threatening deterioration of the patient 's condition and/or to evaluate & treat vital organ system(s) failure or risk of failure.
[2018-08-27] MEDS ORDERED: THIAMINE HCL 100 MG TABLET (FP) PO SCH (09:30)
--- NOTE | 2018-08-27 09:32 | PN ---
Progress Note, Physician Chief Complaint: Remains in ICU on O2 via Ventimask. Patient was seen in AM AF with variable HR History of Present Illness: Patient was seen and examined in ICU. Chart was reviewed AF on the monitor opens eyes to verbal stimuli but overall lethargic - Current Medication List Current Medications: Active Medications Aspirin (Asa -) 81 mg PO DAILY [facility] Last Admin: 08/26/18 09:48 Dose: Not Given Folic Acid (Folic Acid -) 1 mg PO DAILY [facility] Last Admin: 08/26/18 09:48 Dose: Not Given Heparin Sodium (Porcine) (Heparin -) 5,000 unit SQ TID [facility] Last Admin: 08/27/18 05:21 Dose: 5,000 unit Sodium Chloride (Normal Saline -) 250 mls @ 3,000 mls/hr IV PRN PRN PRN Reason: Hypotension during Dialysis Stop: 08/25/18 14:22 Lorazepam (Ativan Injection -) 1 mg IVPUSH Q8H PRN PRN Reason: AGITATION Last Admin: 08/26/18 08:29 Dose: 1 mg Metoprolol Tartrate (Lopressor Injection -) 5 mg IVPUSH Q3H PRN PRN Reason: TACHYCARDIA Last Admin: 08/27/18 01:18 Dose: 5 mg Metoprolol Tartrate (Lopressor -) 25 mg PO TID [facility] Last Admin: 08/27/18 05:21 Dose: Not Given Thiamine HCl (Vitamin B1 -) 500 mg PO Q8H [facility] - Objective Vital Signs: Vital Signs Temperature 98.1 F 08/27/18 06:00 Pulse Rate 122 H 08/27/18 07:12 Respiratory Rate 08/27/18 07:12 Blood Pressure 152/100 08/27/18 06:00 O2 Sat by Pulse Oximetry (%) 100 08/27/18 07:12 Neck: Yes: Supple Cardiovascular: Yes: Tachycardia, Pulse Irregular, S1, S2 Respiratory: Yes: Diminished, On Venti-Mask Gastrointestinal: Yes: Normal Bowel Sounds, Soft. No: Tenderness Edema: Yes Edema: LLE: 1+, RLE: 1+ Labs: CBC, BMP 08/27/18 05:15 08/27/18 05:15 INR, PTT INR 1.54 (0.83-1.09) H 08/27/18 05:15 - ....Imaging Chest X-ray: Report Reviewed Problem List - Problems (1) Respiratory failure Code(s): J96.90 - RESPIRATORY FAILURE, UNSP, UNSP W HYPOXIA OR HYPERCAPNIA (2) On mechanically assisted ventilation Code(s): Z99.11 - DEPENDENCE ON RESPIRATOR [VENTILATOR] STATUS (3) NAS (acute kidney injury) Code(s): N17.9 - ACUTE KIDNEY FAILURE, UNSPECIFIED (4) CHF (congestive heart failure) Code(s): I50.9 - HEART FAILURE, UNSPECIFIED Qualifiers: Heart failure type: unspecified Heart failure chronicity: unspecified Qualified Code(s): I50.9 - Heart failure, unspecified (5) Alcohol dependence Code(s): F10.20 - ALCOHOL DEPENDENCE, UNCOMPLICATED Qualifiers: Substance use status: uncomplicated Qualified Code(s): F10.20 - Alcohol dependence, uncomplicated (6) Afib Code(s): I48.91 - UNSPECIFIED ATRIAL FIBRILLATION (7) Anemia Code(s): D64.9 - ANEMIA, UNSPECIFIED Qualifiers: Anemia type: iron deficiency (8) Chronic kidney disease Code(s): N18.9 - CHRONIC KIDNEY DISEASE, UNSPECIFIED Qualifiers: Chronic kidney disease stage: stage 2 (mild) Qualified Code(s): N18.2 - Chronic kidney disease, stage 2 (mild) (9) DM type 2 (diabetes mellitus, type 2) Code(s): E11.9 - TYPE 2 DIABETES MELLITUS WITHOUT COMPLICATIONS Qualifiers: Diabetes mellitus complication status: with unspecified complications (10) HTN (hypertension) Code(s): I10 - ESSENTIAL (PRIMARY) HYPERTENSION Qualifiers: Hypertension type: essential hypertension Qualified Code(s): I10 - Essential (primary) hypertension (11) Hep C w/o coma, chronic Code(s): B18.2 - CHRONIC VIRAL HEPATITIS C (12) ICD (implantable cardioverter-defibrillator) in place Code(s): Z95.810 - PRESENCE OF AUTOMATIC (IMPLANTABLE) CARDIAC DEFIBRILLATOR (13) Demand ischemia Code(s): I24.8 - OTHER FORMS OF ACUTE ISCHEMIC HEART DISEASE (14) Syncope Code(s): R55 - SYNCOPE AND COLLAPSE Qualifiers: Syncope type: unspecified Qualified Code(s): R55 - Syncope and collapse (15) Lactic acidosis Code(s): E87.2 - ACIDOSIS (16) Respiratory acidosis Code(s): E87.2 - ACIDOSIS (17) Metabolic acidosis Code(s): E87.2 - ACIDOSIS Assessment/Plan 1. NAS (previous history of CKD) with hyperkalemia and metabolic and respiratory acidosis s/p urgent HD 2. Respiratory failure requiring intubation and mechanical ventilation now extubated and ventimask 3. Change in mental status due to above acidosis and acute renal failure, rule out sepsis or mixed picture of cardiac component 4. CAD with demand ischemia 5. Ischemic cardiomyopathy s/p ICD 6. History of PAF - initially showed AF on admission and now persistent AF with periods of RVR 7. History of syncope due to ETOH intoxication 8. DM 9. Anemia PLAN: 1. HD as per renal service - monitor renal function. Continue ICU management as per critical care team 2. Monitor electrolytes 3. Trend troponin 5. Monitor rhythm and rate control. Calcium channel mirella could be used for short term rate control but not ideal for long term care social worker management in view of severe LV systolic dysfunction. Continue Metoprolol PO (uptitrate) and then IV as needed for added rate control 6. Not an ideal candidate for long term care social worker anticoagulation due to ETOH use and risk of bleeding, but will reassess 7. Monitor H/H and transfuse as needed 8. Echocardiography as noted yesterday - moderate to severely reduced LVEF, moderate MR and TR, severe pulmonary HTN Prognosis: guarded Babak Briggs MD
[2018-08-27] MEDS ORDERED: amLODIPine BESYLATE 5 MG TABLET (FP) NGT SCH (10:00)
--- NOTE | 2018-08-27 10:21 | PN ---
Teaching Attending Note Name of Resident: Bakari Rose ATTENDING PHYSICIAN STATEMENT I saw and evaluated the patient. I reviewed the resident's note and discussed the case with the resident. I agree with the resident's findings and plan as documented. SUBJECTIVE: Patient seen and examined in the ICU. Remains extubated. Remains lethargic but arousal to sternal rub. No pressors. LFTs improving. Intake & Output 08/24/18 08/25/18 08/26/18 08/27/18 23:59 23:59 23:59 23:59 Intake Total 471 320 50 Output Total 800 1250 2650 300 Balance -329 -930 -2600 -300 Weight 230 lb 9 oz 230 lb 217 lb 13.067 oz Last Vital Signs Temp Pulse Resp BP Pulse Ox 98.1 F 122 H 19 152/100 100 08/27/18 06:00 08/27/18 07:12 08/27/18 07:12 08/27/18 06:00 08/27/18 07:12 Active Medications Amlodipine Besylate (Norvasc -) 5 mg NGT DAILY [facility] Aspirin (Asa -) 81 mg PO DAILY [facility] Last Admin: 08/26/18 09:48 Dose: Not Given Folic Acid (Folic Acid -) 1 mg PO DAILY [facility] Last Admin: 08/26/18 09:48 Dose: Not Given Heparin Sodium (Porcine) (Heparin -) 5,000 unit SQ TID [facility] Last Admin: 08/27/18 05:21 Dose: 5,000 unit Sodium Chloride (Normal Saline -) 250 mls @ 3,000 mls/hr IV PRN PRN PRN Reason: Hypotension during Dialysis Stop: 08/25/18 14:22 Lorazepam (Ativan Injection -) 1 mg IVPUSH Q8H PRN PRN Reason: AGITATION Last Admin: 08/26/18 08:29 Dose: 1 mg Metoprolol Tartrate (Lopressor Injection -) 5 mg IVPUSH Q3H PRN PRN Reason: TACHYCARDIA Last Admin: 08/27/18 01:18 Dose: 5 mg Metoprolol Tartrate (Lopressor -) 25 mg PO TID [facility] Last Admin: 08/27/18 05:21 Dose: Not Given Thiamine HCl (Vitamin B1 -) 500 mg NGT TID [facility] PE: GEN: Extubated, lethargic HEENT: PERRL, neck supple, no LAD PULM: Scattered bibasilar coarse crackles CV: 3/6 MICAH at LSB, irregular ABD: soft, NT, ND EXT: trace edema, cool ext, + pulses Neuro: Awakes to sternal rub, non-focal Laboratory Results - last 24 hr 08/26/18 08/26/18 08/26/18 05:15 15:56 17:00 WBC RBC Hgb Hct MCV MCH MCHC RDW Plt Count MPV Absolute Neuts (auto) Neutrophils % Lymphocytes % Monocytes % Eosinophils % Basophils % Nucleated RBC % PT with INR INR PTT (Actin FS) Sodium Potassium Chloride Carbon Dioxide Anion Gap BUN Creatinine Creat Clearance w eGFR POC Glucometer 117.15896 Random Glucose Calcium Phosphorus Magnesium Total Bilirubin 1.2 H Direct Bilirubin Cancelled 1.0 H AST 598 H ALT 495 H Alkaline Phosphatase 92 B-Natriuretic Peptide 9329.8 H Total Protein 8.3 H Albumin 3.5 08/27/18 08/27/18 08/27/18 00:23 05:15 05:15 WBC 7.7 RBC 3.39 L Hgb 9.0 L Hct 29.6 L MCV 87.4 MCH 26.7 MCHC 30.5 L RDW 17.9 H Plt Count 148 MPV 8.3 Absolute Neuts (auto) 5.5 Neutrophils % 72.0 Lymphocytes % 12.9 D Monocytes % 14.0 H Eosinophils % 0.6 Basophils % 0.5 Nucleated RBC % 0 PT with INR 18.20 H INR 1.54 H PTT (Actin FS) 25.8 Sodium Potassium Chloride Carbon Dioxide Anion Gap BUN Creatinine Creat Clearance w eGFR POC Glucometer 109.29490 Random Glucose Calcium Phosphorus Magnesium Total Bilirubin Direct Bilirubin AST ALT Alkaline Phosphatase B-Natriuretic Peptide Total Protein Albumin 08/27/18 08/27/18 05:15 05:17 WBC RBC Hgb Hct MCV MCH MCHC RDW Plt Count MPV Absolute Neuts (auto) Neutrophils % Lymphocytes % Monocytes % Eosinophils % Basophils % Nucleated RBC % PT with INR INR PTT (Actin FS) Sodium 144 Potassium 4.4 Chloride 110 H Carbon Dioxide 25 Anion Gap 9 BUN 69 H Creatinine 2.4 H Creat Clearance w eGFR 26.90 POC Glucometer 118.90913 Random Glucose 92 Calcium 8.8 Phosphorus 4.8 Magnesium 2.0 Total Bilirubin 1.3 H Direct Bilirubin AST 526 H ALT 455 H Alkaline Phosphatase 84 B-Natriuretic Peptide Total Protein 7.7 Albumin 3.1 L IMP: Acute Hypercapneic Respiratory Failure Severe Metabolic Acidosis ARF requiring HD CHF AFib with RVR Hyperkalemia Alcohol Abuse DM Elevated LFTs: etiology to be determined PLAN: VM O2 Check Ammonia level GI evaluation noted Aspiration precautions HD per Renal Strict I & O VTE prophylaxis Glycemic control Thiamine load Insert NGT and start feeds ICU monitoring due to tenuous status Dr Kumari Critical care time spent in reviewing chart, evaluating patient and formulating plan - 36 minutes.
[2018-08-27] MEDS ORDERED: dilTIAZem HCL 50 MG/10 ML - 10 ML VIAL IVPUSH ONE (11:09)
[2018-08-27 11:33] VITALS: BMI 29.4
[2018-08-27] MEDS ORDERED: LACTULOSE 20 GM/30 ML UDC (FOR ORAL USE ONLY) PO PRN (12:15)
[2018-08-27] MEDS: ASPIRIN 81 MG CHEWABLE TABLETS PO SCH (12:25)
[2018-08-27] MEDS: FOLIC ACID 1 MG TABLET (FP) PO SCH (12:25)
--- NOTE | 2018-08-27 12:58 | PN ---
Progress Note, Physician History of Present Illness: Pt seen and examined at bedside. He remains in the ICU. He remains extubated. He is still lethargic. - Current Medication List Current Medications: Active Medications Amlodipine Besylate (Norvasc -) 5 mg NGT DAILY [facility] Last Admin: 08/27/18 12:25 Dose: 5 mg Aspirin (Asa -) 81 mg PO DAILY [facility] Last Admin: 08/27/18 12:25 Dose: 81 mg Folic Acid (Folic Acid -) 1 mg PO DAILY [facility] Last Admin: 08/27/18 12:25 Dose: 1 mg Heparin Sodium (Porcine) (Heparin -) 5,000 unit SQ TID [facility] Last Admin: 08/27/18 05:21 Dose: 5,000 unit Sodium Chloride (Normal Saline -) 250 mls @ 3,000 mls/hr IV PRN PRN PRN Reason: Hypotension during Dialysis Stop: 08/25/18 14:22 Lactulose (Cephulac (Oral Use)) 20 gm PO QID PRN PRN Reason: CONSTIPATION Lorazepam (Ativan Injection -) 1 mg IVPUSH Q8H PRN PRN Reason: AGITATION Last Admin: 08/26/18 08:29 Dose: 1 mg Metoprolol Tartrate (Lopressor Injection -) 5 mg IVPUSH Q3H PRN PRN Reason: TACHYCARDIA Last Admin: 08/27/18 01:18 Dose: 5 mg Metoprolol Tartrate (Lopressor -) 25 mg PO TID [facility] Last Admin: 08/27/18 05:21 Dose: Not Given Thiamine HCl (Vitamin B1 -) 500 mg NGT TID [facility] - Objective Vital Signs: Vital Signs Temperature 98.1 F 08/27/18 06:00 Pulse Rate 156 H 08/27/18 12:46 Respiratory Rate 20 08/27/18 12:46 Blood Pressure 152/107 H 08/27/18 12:46 O2 Sat by Pulse Oximetry (%) 100 08/27/18 07:12 Constitutional: Yes: Calm Eyes: Yes: Conjunctiva Clear Cardiovascular: Yes: JVD, S1, S2 Respiratory: Yes: On Venti-Mask Gastrointestinal: Yes: Soft Genitourinary: Yes: Syed Present Musculoskeletal: Yes: Muscle Weakness Edema: Yes Edema: LLE: 1+, RLE: 1+ Neurological: Yes: Lethargy Labs: CBC, BMP 08/27/18 05:15 08/27/18 05:15 INR, PTT INR 1.54 (0.83-1.09) H 08/27/18 05:15 Problem List - Problems (1) NAS (acute kidney injury) Code(s): N17.9 - ACUTE KIDNEY FAILURE, UNSPECIFIED (2) CHF (congestive heart failure) Code(s): I50.9 - HEART FAILURE, UNSPECIFIED Qualifiers: Heart failure type: unspecified Heart failure chronicity: unspecified Qualified Code(s): I50.9 - Heart failure, unspecified (3) Alcohol dependence Code(s): F10.20 - ALCOHOL DEPENDENCE, UNCOMPLICATED Qualifiers: Substance use status: uncomplicated Qualified Code(s): F10.20 - Alcohol dependence, uncomplicated (4) Afib Code(s): I48.91 - UNSPECIFIED ATRIAL FIBRILLATION (5) Anemia Code(s): D64.9 - ANEMIA, UNSPECIFIED Qualifiers: Anemia type: iron deficiency (6) Chronic kidney disease Code(s): N18.9 - CHRONIC KIDNEY DISEASE, UNSPECIFIED Qualifiers: Chronic kidney disease stage: stage 2 (mild) Qualified Code(s): N18.2 - Chronic kidney disease, stage 2 (mild) (7) DM type 2 (diabetes mellitus, type 2) Code(s): E11.9 - TYPE 2 DIABETES MELLITUS WITHOUT COMPLICATIONS Qualifiers: Diabetes mellitus complication status: with unspecified complications (8) HTN (hypertension) Code(s): I10 - ESSENTIAL (PRIMARY) HYPERTENSION Qualifiers: Hypertension type: essential hypertension Qualified Code(s): I10 - Essential (primary) hypertension Assessment/Plan Current Medications Generic Name Dose Route Start Last Admin Trade Name Freq PRN Reason Stop Dose Admin Amlodipine Besylate 5 mg 08/27/18 10:00 08/27/18 12:25 Norvasc - NGT 5 mg DAILY [facility] Administration Aspirin 81 mg 08/23/18 19:15 08/27/18 12:25 Asa - PO 81 mg DAILY [facility] Administration Folic Acid 1 mg 08/23/18 19:15 08/27/18 12:25 Folic Acid - PO 1 mg DAILY [facility] Administration Heparin Sodium (Porcine) 5,000 unit 08/23/18 22:00 08/27/18 05:21 Heparin - SQ 5,000 unit TID [facility] Administration Sodium Chloride 250 mls @ 3,000 mls/hr 08/24/18 14:22 Normal Saline - IV 08/25/18 14:22 PRN PRN Hypotension during Dialysis Lactulose 20 gm 08/27/18 12:15 Cephulac (Oral Use) PO QID PRN CONSTIPATION Lorazepam 1 mg 08/26/18 07:20 08/26/18 08:29 Ativan Injection - IVPUSH 1 mg Q8H PRN Administration AGITATION Metoprolol Tartrate 5 mg 08/26/18 08:39 08/27/18 01:18 Lopressor Injection - IVPUSH 5 mg Q3H PRN Administration TACHYCARDIA Metoprolol Tartrate 25 mg 08/26/18 22:00 08/27/18 05:21 Lopressor - PO Not Given TID [facility] Thiamine HCl 500 mg 08/27/18 14:00 Vitamin B1 - NGT TID [facility] Impression 1. NAS 2. CKD 3. hyperkalemia 4. lactic acidosis 5. metformin use 6. etoh abuse 7. CHF 8. DM 9. a-fib 10. anemia Plan - follow chest x-ray - cont lasix as needed - monitor output - repeat labs in am - no indication for HD - discussed with ICU team Dr Flores
[2018-08-27] MEDS ORDERED: DEXTROSE 50%-WATER 25 GM/50 ML DISP.SYRIN ONE ×2 (13:06→16:11)
[2018-08-27] MEDS ORDERED: DEXTROSE 50%-WATER - 25 GM/50 ML VIAL IVPUSH ONE (13:09)
[2018-08-27] MEDS ORDERED: THIAMINE HCL 100 MG TABLET (FP) NGT SCH (14:00)
--- NOTE | 2018-08-27 14:06 | PN ---
Teaching Attending Note Name of Resident: Joaquina Donohue ATTENDING PHYSICIAN STATEMENT I saw and evaluated the patient. I reviewed the resident's note and discussed the case with the resident. I agree with the resident's findings and plan as documented. SUBJECTIVE: Patient is extubated but lethargic, arousal to sternal rub. seen in ICU. OBJECTIVE: Vital Signs Temperature 98.1 F 08/27/18 06:00 Pulse Rate 156 H 08/27/18 12:46 Respiratory Rate 20 08/27/18 12:46 Blood Pressure 152/107 H 08/27/18 12:46 O2 Sat by Pulse Oximetry (%) 100 08/27/18 07:12 GENERAL: lethargic s/p extubation . HEENT: AT/NC. NECK: Supple, , no JVD. LUNGS: bibasilar coarse crackles scattered HEART: irregularly, irregulary rate of 156, MICAH 3/6 LLSB ABDOMEN: Soft, NT/ND. positive for umbilical hernia, reducible, non-tender. EXTREMITIES: 2+ pulses, warm, well-perfused, trace edema. NEUROLOGICAL: lethargic but arousable to sternal rub SKIN: Warm, dry, normal turgor, no rashes or lesions noted CBCD WBC 7.7 K/mm3 (4.0-10.0) 08/27/18 05:15 RBC 3.39 M/mm3 (4.00-5.60) L 08/27/18 05:15 Hgb 9.0 GM/dL (11.7-16.9) L 08/27/18 05:15 Hct 29.6 % (35.4-49) L 08/27/18 05:15 MCV 87.4 fl (80-96) 08/27/18 05:15 MCHC 30.5 g/dl (32.0-35.9) L 08/27/18 05:15 RDW 17.9 % (11.9-15.9) H 08/27/18 05:15 Plt Count 148 K/MM3 (134-434) 08/27/18 05:15 MPV 8.3 fl (7.5-11.1) 08/27/18 05:15 CMP Sodium 144 mmol/L (136-145) 08/27/18 05:15 Potassium 4.4 mmol/L (3.5-5.1) 08/27/18 05:15 Chloride 110 mmol/L (98-107) H 08/27/18 05:15 Carbon Dioxide 25 mmol/L (21-32) 08/27/18 05:15 Anion Gap 9 MMOL/L (8-16) 08/27/18 05:15 BUN 69 mg/dL (7-18) H 08/27/18 05:15 Creatinine 2.4 mg/dL (0.55-1.3) H 08/27/18 05:15 Creat Clearance w eGFR 26.90 (>60) 08/27/18 05:15 Random Glucose 92 mg/dL (74-106) 08/27/18 05:15 Calcium 8.8 mg/dL (8.5-10.1) 08/27/18 05:15 Total Bilirubin 1.3 mg/dL (0.2-1) H 08/27/18 05:15 AST 526 U/L (15-37) H 08/27/18 05:15 ALT 455 U/L (13-61) H 08/27/18 05:15 Alkaline Phosphatase 84 U/L (45-117) 08/27/18 05:15 Total Protein 7.7 g/dl (6.4-8.2) 08/27/18 05:15 Albumin 3.1 g/dl (3.4-5.0) L 08/27/18 05:15 CARDIAC ENZYMES Creatine Kinase 63 IU/L (26-308) 08/24/18 05:30 Troponin I 0.28 ng/ml (0.00-0.05) H 08/26/18 05:15 Current Medications Generic Name Dose Route Start Last Admin Trade Name Freq PRN Reason Stop Dose Admin Amlodipine Besylate 5 mg 08/27/18 10:00 08/27/18 12:25 Norvasc - NGT 5 mg DAILY ALEAH Administration Aspirin 81 mg 08/23/18 19:15 08/27/18 12:25 Asa - PO 81 mg DAILY ALEAH Administration Folic Acid 1 mg 08/23/18 19:15 08/27/18 12:25 Folic Acid - PO 1 mg DAILY ALEAH Administration Heparin Sodium (Porcine) 5,000 unit 08/23/18 22:00 08/27/18 13:18 Heparin - SQ 5,000 unit TID ALEAH Administration Sodium Chloride 250 mls @ 3,000 mls/hr 08/24/18 14:22 Normal Saline - IV 08/25/18 14:22 PRN PRN Hypotension during Dialysis Lactulose 20 gm 08/27/18 12:15 Cephulac (Oral Use) PO QID PRN CONSTIPATION Lorazepam 1 mg 08/26/18 07:20 08/26/18 08:29 Ativan Injection - IVPUSH 1 mg Q8H PRN Administration AGITATION Metoprolol Tartrate 5 mg 08/26/18 08:39 08/27/18 12:45 Lopressor Injection - IVPUSH 5 mg Q3H PRN Administration TACHYCARDIA Metoprolol Tartrate 25 mg 08/26/18 22:00 08/27/18 13:16 Lopressor - PO 25 mg TID ALEAH Administration Thiamine HCl 500 mg 08/27/18 14:00 08/27/18 13:09 Vitamin B1 - NGT 500 mg TID ALEAH Administration ASSESSMENT AND PLAN: Patient is a 68 y/o man with h/o alcohol abuse, HTN, Systolic heart failure, s/ p AICD, Hep C, DM , with recent admission for alcohol intoxication and demand ischemia discharged to [facility] on 08/18 , who was sent form [facility] with AMS . he was found to have hypoglycemia, and NAS. #Acute hypercapnic respiratory failure. resolved s/p extubation. On VM now # Acute metabolic acidosis : s/p HD due to NAS and metformin use. will check his ammonia level. # Acute systolic CHF exacerbation: on lasix and HD prn # Acute Transaminitis: due to possible shocked liver/alcoholic liver cirrhosis /alcoholic hepatitis . # A fib with RVR: on IV BB PRN , not candidate for AC # Hyperkalemia: due to NAS. resolved after HD # Alcohol abuse: just finished detox at [facility]. but use PRN ativan for agitation prn # T2DM: was found hypoglycemic. BS improved. hold metformin and do not resume at dc DVT PX : Heparin
[2018-08-27] MEDS ORDERED: FUROSEMIDE 40 MG/4 ML INJECTABLE VIAL IVPUSH ONE (15:22)
[2018-08-27] MEDS ORDERED: LORazepam 2 MG/ML SDV VIAL IVPUSH PRN (15:22)
[2018-08-27 15:35] VITALS: PULSE 132
--- NOTE | 2018-08-27 15:35 | PN ---
Physical Exam: SUBJECTIVE: Patient seen and examined at bedside. OBJECTIVE: Vital Signs Temperature 98.1 F 08/27/18 06:00 Pulse Rate 156 H 08/27/18 12:46 Respiratory Rate 20 08/27/18 12:46 Blood Pressure 152/107 H 08/27/18 12:46 O2 Sat by Pulse Oximetry (%) 100 08/27/18 07:12 GENERAL: On ventimask. NAD. Sleeping. HEENT: AT/NC. NECK: Supple, no LAD. +JVD. LUNGS: bibasilar coarse crackles HEART: irregularly, irregulary rhythm. 3/6 systolic murmur LLSB ABDOMEN: Soft, NT/ND. +umbilical hernia, reducible, non-tender. EXTREMITIES: 2+ pulses, warm, well-perfused, no edema. NEUROLOGICAL: Unable to assess. SKIN: Warm, dry, normal turgor, no rashes or lesions noted CBCD WBC 7.7 K/mm3 (4.0-10.0) 08/27/18 05:15 RBC 3.39 M/mm3 (4.00-5.60) L 08/27/18 05:15 Hgb 9.0 GM/dL (11.7-16.9) L 08/27/18 05:15 Hct 29.6 % (35.4-49) L 08/27/18 05:15 MCV 87.4 fl (80-96) 08/27/18 05:15 MCHC 30.5 g/dl (32.0-35.9) L 08/27/18 05:15 RDW 17.9 % (11.9-15.9) H 08/27/18 05:15 Plt Count 148 K/MM3 (134-434) 08/27/18 05:15 MPV 8.3 fl (7.5-11.1) 08/27/18 05:15 CMP Sodium 144 mmol/L (136-145) 08/27/18 05:15 Potassium 4.4 mmol/L (3.5-5.1) 08/27/18 05:15 Chloride 110 mmol/L (98-107) H 08/27/18 05:15 Carbon Dioxide 25 mmol/L (21-32) 08/27/18 05:15 Anion Gap 9 MMOL/L (8-16) 08/27/18 05:15 BUN 69 mg/dL (7-18) H 08/27/18 05:15 Creatinine 2.4 mg/dL (0.55-1.3) H 08/27/18 05:15 Creat Clearance w eGFR 26.90 (>60) 08/27/18 05:15 Calcium 8.8 mg/dL (8.5-10.1) 08/27/18 05:15 Total Bilirubin 1.3 mg/dL (0.2-1) H 08/27/18 05:15 AST 526 U/L (15-37) H 08/27/18 05:15 ALT 455 U/L (13-61) H 08/27/18 05:15 Alkaline Phosphatase 84 U/L (45-117) 08/27/18 05:15 Total Protein 7.7 g/dl (6.4-8.2) 08/27/18 05:15 Albumin 3.1 g/dl (3.4-5.0) L 08/27/18 05:15 Active Medications Amlodipine Besylate (Norvasc -) 5 mg NGT DAILY [facility] Last Admin: 08/27/18 12:25 Dose: 5 mg Aspirin (Asa -) 81 mg PO DAILY [facility] Last Admin: 08/27/18 12:25 Dose: 81 mg Folic Acid (Folic Acid -) 1 mg PO DAILY [facility] Last Admin: 08/27/18 12:25 Dose: 1 mg Heparin Sodium (Porcine) (Heparin -) 5,000 unit SQ TID [facility] Last Admin: 08/27/18 13:18 Dose: 5,000 unit Sodium Chloride (Normal Saline -) 250 mls @ 3,000 mls/hr IV PRN PRN PRN Reason: Hypotension during Dialysis Stop: 08/25/18 14:22 Lactulose (Cephulac (Oral Use)) 20 gm PO QID PRN PRN Reason: CONSTIPATION Lorazepam (Ativan Injection -) 1 mg IVPUSH Q4H PRN PRN Reason: AGITATION Metoprolol Tartrate (Lopressor Injection -) 5 mg IVPUSH Q3H PRN PRN Reason: TACHYCARDIA Last Admin: 08/27/18 12:45 Dose: 5 mg Metoprolol Tartrate (Lopressor -) 25 mg PO TID [facility] Last Admin: 08/27/18 13:16 Dose: 25 mg Thiamine HCl (Vitamin B1 -) 500 mg NGT TID [facility] Last Admin: 08/27/18 13:09 Dose: 500 mg IMAGING: * Renal U/S: Morphologically normal kidneys with no hydronephrosis or acute pathology. * Carotid doppler: Dilated R internal jugular vein * Echo: LV systolic fxn mod to severely reduced. Mod to severe global hypokinesis of LV. EF 35-50%. LA/RA mod dilated. Mild mitral valve thickening. Mild mitral annular calcification. Moderate MR/TR. PA systolic pressure at least 69 mmHg assuming RA pressure of 3 mmHg. Mild aortic sclerosis. Mildly dilated ascending aorta. No pericardial effusion. ASSESSMENT/PLAN: 68 y/o man with h/o alcohol abuse, HTN, S heart failure, s/p AICD, Hep C, DM , and recent admission fro alcohol intoxication and demand ischemia discharged to [facility] on 08/18, who was sent form [facility] for AMS . he was found to have hypoglycemia, and NAS. #Acute hypercapnic resp failure; likely due to CHF, renal failure and metabolic acidosis -On 40% Ventimask. -Cont to monitor -ABG improved. #Acute metabolic acidosis; due to NAS and metformin use. -lactate resolved. -s/p HD yesterday. -ABG improved, 7.47/34.8/169/25.2 #Acute systolic CHF exacerbation -s/p HD yesterday -monitor volume status today -Echo noted above -Cont Lasix as needed #A fib with RVR; now back to sinus on tele; repeat EKG showed SR, prolonged QTc 531 ms -Metoprolol Tartrate 25 mg PO BID -not a candidate for AC due to hx of non-compliance and syncope/falls -Per cardio, monitor rhythm and rate control, CCB could be used for short term rate control but not ideal for assisted management in view of severe LV systolic dysfunction. Continue Metoprolol PO (uptitrate) and then IV as needed for added rate control #Hyperkalemia; due to NAS. resolved after HD #Alcohol abuse; just finished detox at [facility] -Folic acid 1 mg PO QD -Thiamine 100 mg PO QD -Librium 25 mg PO Q6H -Drug cessation counseling #DM; was hypoglycemic. -now sugar improved -hold metformin and will not resume at ne -[facility] #Prophylaxis -DVT: Heparin 5000U SQ TID -GI: Pantoprazole 40 mg IVP QD dispo -cont to monitor in ICU Visit type - Emergency Visit Emergency Visit: Yes ED Registration Date: 08/23/18 Care time: The patient presented to the Emergency Department on the above date and was hospitalized for further evaluation of their emergent condition. - New Patient This patient is new to me today: No - Critical Care Critical Care patient: No
[2018-08-27] MEDS ORDERED: SODIUM BICARBONATE 8.4% - 50 ML ONE (16:29)
[2018-08-27] MEDS ORDERED: DEXTROSE 10%-WATER - 1,000 ML IV SCH (16:30)
[2018-08-27] MEDS ORDERED: NOREPINEPHRINE BITARTRATE 4 MG/4 ML ML IV ONE (16:36)
--- NOTE | 2018-08-27 17:12 | PROC ---
Intubation - Intubation Reason for Intubation: Respiratory Insufficiency, Respiratory Failure, Airway Protection, Ventilatory Failure Time of Intubation: 16:30 Intubation Method: orotracheal Blade used: Mac Tube Size (cm): 7.5 Tube position confirmed by: Direct visualization, CO2 detector, Breath sounds Breath Sounds after Intubation: equal Post Intubation Xray: Yes Remarks: Technically difficult airway w/ copious secretions. Intubated via DL.
--- NOTE | 2018-08-27 17:31 | RAPID ---
Physical Examination Vital Signs: Vital Signs Temperature 98.1 F 08/27/18 06:00 Pulse Rate 132 H 08/27/18 14:00 Respiratory Rate 18 08/27/18 14:00 Blood Pressure 139/100 08/27/18 14:00 O2 Sat by Pulse Oximetry (%) 100 08/27/18 07:12 Labs: CBC, BMP 08/27/18 05:15 08/27/18 05:15 Rapid Response - Rapid Response Assessment: Code 99 called at 4:15pm in the ICU. Code team immediately arrived at bedside. Pt seen unresponsive, compressions started by ICU team. Refer to code sheet for details. Plan: Refer to code sheet.
--- NOTE | 2018-08-27 17:47 | PN ---
Progress Note (short form) - Note Progress Note: patient coded multiple times please see note and code sheet pupils fixed and dilated no electrical activity on telemetry no breath sounds no corneal or gag reflex Patient pronounced at [address] Goodwin aware Dr. Kumari aware
[2018-08-27 17:50] VITALS: TEMP 99
[2018-08-27 17:53] VITALS: BP 112/61
[2018-08-27] MEDS ORDERED: LACTULOSE 20 GM/30 ML UDC (FOR ORAL USE ONLY) PO SCH (18:00)
--- NOTE | 2018-08-27 20:25 | DS ---
Physical Exam: SUBJECTIVE: Pt . TOD 17:27. OBJECTIVE: Vital Signs Temperature 99 F 08/27/18 14:00 Pulse Rate 132 H 08/27/18 14:00 Respiratory Rate 16 08/27/18 18:07 Blood Pressure 112/61 08/27/18 16:00 O2 Sat by Pulse Oximetry (%) 100 08/27/18 07:12 PHYSICAL EXAM LABS Laboratory Results - last 24 hr 08/27/18 08/27/18 08/27/18 00:23 05:15 05:15 WBC 7.7 RBC 3.39 L Hgb 9.0 L Hct 29.6 L MCV 87.4 MCH 26.7 MCHC 30.5 L RDW 17.9 H Plt Count 148 MPV 8.3 Absolute Neuts (auto) 5.5 Neutrophils % 72.0 Lymphocytes % 12.9 D Monocytes % 14.0 H Eosinophils % 0.6 Basophils % 0.5 Nucleated RBC % 0 PT with INR 18.20 H INR 1.54 H PTT (Actin FS) 25.8 Sodium Potassium Chloride Carbon Dioxide Anion Gap BUN Creatinine Creat Clearance w eGFR POC Glucometer [phone] Random Glucose Calcium Phosphorus Magnesium Total Bilirubin AST ALT Alkaline Phosphatase Ammonia Total Protein Albumin 08/27/18 08/27/18 08/27/18 05:15 05:17 10:35 WBC RBC Hgb Hct MCV MCH MCHC RDW Plt Count MPV Absolute Neuts (auto) Neutrophils % Lymphocytes % Monocytes % Eosinophils % Basophils % Nucleated RBC % PT with INR INR PTT (Actin FS) Sodium 144 Potassium 4.4 Chloride 110 H Carbon Dioxide 25 Anion Gap 9 BUN 69 H Creatinine 2.4 H Creat Clearance w eGFR 26.90 POC Glucometer 118.04349 Random Glucose 92 Calcium 8.8 Phosphorus 4.8 Magnesium 2.0 Total Bilirubin 1.3 H AST 526 H ALT 455 H Alkaline Phosphatase 84 Ammonia 57.50 H Total Protein 7.7 Albumin 3.1 L 08/27/18 08/27/18 08/27/18 12:59 13:35 16:14 WBC RBC Hgb Hct MCV MCH MCHC RDW Plt Count MPV Absolute Neuts (auto) Neutrophils % Lymphocytes % Monocytes % Eosinophils % Basophils % Nucleated RBC % PT with INR INR PTT (Actin FS) Sodium Potassium Chloride Carbon Dioxide Anion Gap BUN Creatinine Creat Clearance w eGFR POC Glucometer < 50 112.75352 < 50 Random Glucose Calcium Phosphorus Magnesium Total Bilirubin AST ALT Alkaline Phosphatase Ammonia Total Protein Albumin 08/27/18 16:41 WBC RBC Hgb Hct MCV MCH MCHC RDW Plt Count MPV Absolute Neuts (auto) Neutrophils % Lymphocytes % Monocytes % Eosinophils % Basophils % Nucleated RBC % PT with INR INR PTT (Actin FS) Sodium Potassium Chloride Carbon Dioxide Anion Gap BUN Creatinine Creat Clearance w eGFR POC Glucometer < 50 Random Glucose Calcium Phosphorus Magnesium Total Bilirubin AST ALT Alkaline Phosphatase Ammonia Total Protein Albumin HOSPITAL COURSE: Date of Admission:08/23/18 IMAGING: * Renal U/S: Morphologically normal kidneys with no hydronephrosis or acute pathology. * Carotid doppler: Dilated R internal jugular vein * Echo: LV systolic fxn mod to severely reduced. Mod to severe global hypokinesis of LV. EF 35-50%. LA/RA mod dilated. Mild mitral valve thickening. Mild mitral annular calcification. Moderate MR/TR. PA systolic pressure at least 69 mmHg assuming RA pressure of 3 mmHg. Mild aortic sclerosis. Mildly dilated ascending aorta. No pericardial effusion. 68 y/o man with h/o alcohol abuse, HTN, systolic heart failure, s/p AICD, Hep C , DM, and recent admission for alcohol intoxication and demand ischemia discharged to [facility] on 08/18, who was sent from [facility] for AMS found to have hypoglycemia, and NAS. On initial physical exam, pt was found to have bibasilar crackles, R JVD, elevated BNP, and b/l LE edema. Echo previously done was remarkable for EF 35-50%. Pt was subsequently given Lasix and Metoprolol. During hospital stay, pt was found to be obtunded with poor respiratory drive. ABG was done that revealed mixed metabolic and respiratory acidosis. As a result, pt was found to be in acute hypercapnic respiratory failure likely 2/2 CHF, renal failure, and metabolic acidosis and was subsequently transferred to ICU and intubated for airway protection. Lab work was done that showed worsening acidosis and hyperkalemia, and as a result nephro was consulted. Upon nephro eval, HD was recommended with 2 PC consent as no family/friends were able to be reached. Pt tolerated HD. Additionally, cardio was consulted due to hx of severe LV dysfunction and elevated troponins. Upon cardio eval, elevated troponins were trended and likely due to demand ischemia. Pt was given CCB/BB PRN for rate control, as pt has hx of afib. On 08/25/18, pt was successfully extubated and placed on venti mask 40%. Repeat ABG was done with improvement, however pt remained lethargic, agitated, and unable to communicate. Furthermore, on labs, pt was found to have transaminitis likely 2/2 possible shock liver due to hypotension. GI was consulted with recommendation to obtain hepatitis serology for further work up as pt had previous hepatitis C history. RUQ U/S showed diffuse fatty liver. Throughout duration of hospital stay, pt remained agitated and uncooperative when interviewed by medical team and specialists. Unfortunately, pt coded multiple times. Multiple attempts were made to communicate with emergency electrical engineering draftsperson listed, however unsuccessful. Pt subsequently . Time of , 17:27. Date of Discharge: 08/27/18 Minutes to complete discharge: 40 Discharge Summary Reason For Visit: ACUTE KIDNEY INJURY,CONGESTIVE HEART FAILURE Condition: Stable - Instructions Referrals: Leon Francisco MD [Primary Care Provider] - Disposition: - Home Medications Comprehensive Discharge Medication List: Ambulatory Orders Aspirin [ASA -] 81 mg PO DAILY tab.chew 08/18/18 Folic Acid - 1 mg PO DAILY tablet 08/18/18 Lisinopril [Prinivil] 20 mg PO DAILY tablet 08/18/18 Metoprolol Tartrate [Lopressor -] 25 mg PO BID tablet 08/18/18 Thiamine HCl [Vitamin B1 -] 100 mg PO DAILY tablet 08/18/18 Metformin HCl [Glucophage] 500 mg PO BID 08/19/18 This patient is new to me today: No Emergency Visit: Yes ED Registration Date: 08/23/18 Care time: The patient presented to the Emergency Department on the above date and was hospitalized for further evaluation of their emergent condition. Critical Care patient: Yes Total Critical Care Time (in minutes): 40 Critical Care Statement: The care of this patient involved high complexity decision making to prevent further life threatening deterioration of the patient 's condition and/or to evaluate & treat vital organ system(s) failure or risk of failure. - Discharge Referral Referred to [facility] No
[2018-08-27 23:09] LABS: HBSAG SCREEN Negative (Negative); HEP A AB, IGM Negative (Negative); HEP B CORE AB, TOT Negative (Negative)
== END 2018-08-27 17:27 | disposition expired | DRG 306 ==
LOC: JER 14:21 → JERBED 18:03 → JICU 08-24 09:44
PROVIDERS: ADMIT Internal Medicine; ATTEND Internal Medicine
PROC: 0CHY7BZ Insertion of Airway into Mouth and Throat, Via Natural or Artificial Opening (ICD-10-PCS; principal; 2018-08-24)
PROC: 5A1945Z Respiratory Ventilation, 24-96 Consecutive Hours (ICD-10-PCS; 2018-08-24)
PROC: 06HM33Z Insertion of Infusion Device into Right Femoral Vein, Percutaneous Approach (ICD-10-PCS; 2018-08-24)
PROC: B51BZZA Fluoroscopy of Right Lower Extremity Veins, Guidance (ICD-10-PCS; 2018-08-24)
PROC: 5A1D70Z Performance of Urinary Filtration, Intermittent, Less than 6 Hours Per Day (ICD-10-PCS; 2018-08-24)
PROC: 0CHY7BZ Insertion of Airway into Mouth and Throat, Via Natural or Artificial Opening (ICD-10-PCS; 2018-08-27)
PROC: 5A1935Z Respiratory Ventilation, Less than 24 Consecutive Hours (ICD-10-PCS; 2018-08-27)
PROC: 5A12012 Performance of Cardiac Output, Single, Manual (ICD-10-PCS; 2018-08-27)
DX: I36.1 Nonrheumatic tricuspid (valve) insufficiency (principal); A41.9 Sepsis, unspecified organism; R65.21 Severe sepsis with septic shock; I50.21 Acute systolic (congestive) heart failure; J96.02 Acute respiratory failure with hypercapnia; K72.00 Acute and subacute hepatic failure without coma; Z99.11 Dependence on respirator [ventilator] status; N17.9 Acute kidney failure, unspecified; N39.0 Urinary tract infection, site not specified; E87.4 Mixed disorder of acid-base balance; G20 Parkinson's disease; I13.0 Hypertensive heart and chronic kidney disease with heart failure and stage 1 through stage 4 chronic kidney disease, or unspecified chronic kidney disease; I24.8 Other forms of acute ischemic heart disease; I95.9 Hypotension, unspecified; N18.2 Chronic kidney disease, stage 2 (mild); E11.649 Type 2 diabetes mellitus with hypoglycemia without coma; I25.5 Ischemic cardiomyopathy; E87.5 Hyperkalemia; E11.22 Type 2 diabetes mellitus with diabetic chronic kidney disease; B18.2 Chronic viral hepatitis C; I48.91 Unspecified atrial fibrillation; I25.10 Atherosclerotic heart disease of native coronary artery without angina pectoris; Z95.810 Presence of automatic (implantable) cardiac defibrillator; Z79.84 Long term (current) use of oral hypoglycemic drugs; E78.5 Hyperlipidemia, unspecified; F17.210 Nicotine dependence, cigarettes, uncomplicated; I45.81 Long QT syndrome; I45.10 Unspecified right bundle-branch block; K42.9 Umbilical hernia without obstruction or gangrene; F10.20 Alcohol dependence, uncomplicated; R74.0 Nonspecific elevation of levels of transaminase and lactic acid dehydrogenase [LDH]; D50.9 Iron deficiency anemia, unspecified; I70.0 Atherosclerosis of aorta
CPT/HCPCS: 31500; 36415; 36600; 71045-TC-FY; 76705-TC; 76775-TC; 80048; 80053; 80076; 81003; 81015; 82140; 82550; 82803; 82962; 83605; 83735; 83880; 84100; 84484; 85025; 85610; 85730; 86704; 86706; 86708; 86803; 87340; 93005; 93010; 93306-TC; 93880-TC; 94002; 99284-25; J1644; J7030